=== PATIENT | female | born 1955 | race Caucasian/White ===

== ENCOUNTER 2016-10-12 09:34 | Emergency (ER) | payer MEDICAID ==
[2016-10-12 10:10] VITALS: BP 113/75
--- NOTE | 2016-10-12 10:54 | EDM.PDOC ---
ED HISTORY OF PRESENT ILLNESS - General Chief Complaint: Respiratory Problem Stated Complaint: COUGH Time Seen by Provider: 10/12/16 10:09 Source of Information: Reports: Patient, RN, RN notes reviewed History Limitations: Reports: No limitations - History of Present Illness INITIAL COMMENTS - FREE TEXT/NARRATIVE: Patient presents to the ED at [facility] with a one week history of a cough , bodyaches, headaches, and chills. Patient was seen at the [facility] on for her symptoms. She was diagnosed with Influenza A. Patient was not discharged on any medications. She was treated conservatively at that time. Patient states her cough has progressively gotten worse. Her symptoms have not gotten any better. Symptom Onset Date: 10/03/16 - Related Data Allergies/ADRs: Allergies Allergy/AdvReac Type Severity Reaction Status Date / Time No Known Allergies Allergy Verified 10/12/16 10:06 Home Meds: Home Meds Omeprazole 40 mg PO DAILY #10 cap.sr 08/26/14 [Rx] Simethicone [Gas-X] 125 mg PO Q6H PRN #30 capsule 08/26/14 [Rx] Albuterol/Ipratropium [DuoNeb 3.0-0.5 MG/3 ML] 3 ml NEB QID PRN 09/15/14 [ History] Bisacodyl 10 mg RECTAL DAILY PRN 09/15/14 [History] Docusate Sodium/Sennosides [Senokot-S] 8.6 - 50 each PO BID 09/15/14 [History] FLUoxetine [PROzac] 80 mg PO DAILY 09/15/14 [History] Fluticasone/Salmeterol [Advair 100-50] 1 puff INH BID 09/15/14 [History] LORazepam 0.5 mg PO Q8HR PRN 09/15/14 [History] Polyethylene Glycol 3350 [MiraLAX] 17 gm PO DAILY PRN 09/15/14 [History] QUEtiapine Fumarate [Seroquel] 75 mg PO BEDTIME 09/15/14 [History] QUEtiapine [SEROquel] 25 mg PO TID 09/15/14 [History] Sodium Chloride,Bacteriostatic [Sodium Chloride 0.9%] 10 ml IV BID 09/15/14 [ History] Tiotropium [Spiriva Handihaler] 18 mcg INH DAILY 09/15/14 [History] oxyCODONE 5 mg PO Q4HR PRN 09/15/14 [History] tiZANidine [Zanaflex] 4 mg PO Q8H 09/15/14 [History] traZODone 150 mg PO BEDTIME 09/15/14 [History] ClonazePAM [KlonoPIN] 0.5 mg PO BID #1 tablet 10/23/14 [Rx] oxyCODONE 5 mg PO Q4HR PRN #16 tablet 10/23/14 [Rx] oxyCODONE 10 mg PO Q4HR PRN #0 10/23/14 [Rx] predniSONE [Deltasone] 20 mg PO BID #8 tablet 10/12/16 [Rx] Past Medical History Respiratory History: Reports: Other (see below) Other Respiratory History: influenza Social & Family History - Tobacco Use Smoking Status *Q: Current Every Day Smoker Years of Tobacco use: 10 Packs/Tins Daily: 1 Used Tobacco, but Quit: Yes Month Tobacco Last Used: unknown Second Hand Smoke Exposure: Yes - Caffeine Use Caffeine Use: Reports: None - Alcohol Use Days Per Week of Alcohol Use: 0 - Recreational Drug Use Recreational Drug Use: No Drug Use in Last 12 Months: No ED ROS GENERAL - Review of Systems Review Of Systems: See Below Constitutional: Reports: fever, chills, decreased appetite. Denies: weakness HEENT: Reports: Throat pain. Denies: Ear pain, Eye pain, Rhinitis, Sinus problem, Throat swelling Respiratory: Reports: wheezing, cough. Denies: shortness of breath, sputum Cardiovascular: Denies: Chest pain, Palpitations GI/Abdominal: Reports: Nausea. Denies: Diarrhea, Vomiting Musculoskeletal: Reports: muscle pain, muscle stiffness Skin: Reports: no symptoms Neurological: Reports: no symptoms. Denies: dizziness, headache ED EXAM, GENERAL - Physical Exam Exam: See Below Exam Limited By: No limitations General Appearance: alert, anxious Eye Exam: bilateral eye: EOMI, normal inspection, PERRL Ears: normal external exam, normal canal, hearing grossly normal, normal TMs Ear Exam: bilateral ear: TM normal Nose: clear rhinorrhea Throat/Mouth: Normal inspection, Normal oropharynx, No airway compromise Neck: supple Respiratory/Chest: no respiratory distress, rhonchi, wheezing Cardiovascular: regular rate, rhythm GI/Abdominal: normal bowel sounds, soft, non tender, no distention Neurological: alert, oriented Psychiatric: anxious Skin Exam: Warm, Dry, Intact, Normal color, No rash Course - Vital Signs Last Recorded V/S: Last Vital Signs Temp 36.0 C 10/12/16 10:00 Pulse 94 10/12/16 10:00 Resp 20 10/12/16 10:00 BP 113/75 10/12/16 10:00 Pulse Ox - Orders/Labs/Meds Orders: Active Orders 24 hr Category Date Time Status RT Aerosol Therapy [RC] ASDIRECTED Care 10/12/16 10:30 Active Chest 2V [CR] Stat Exams 10/12/16 10:12 Taken Sodium Chloride 0.9% [Normal Saline] 1,000 ml Med 10/12/16 10:45 Active IV ASDIRECTED Sodium Chloride 0.9% [Saline Flush] Med 10/12/16 10:37 Active 10 ml FLUSH ASDIRECTED PRN predniSONE [Take Home: predniSONE 20 MG, 2 Tab Pack] Med 10/12/16 11:18 Once 1 packet PO ONETIME ONE Peripheral IV Insertion Adult [OM.PC] Routine Oth 10/12/16 10:37 Ordered Medication Orders Sodium Chloride (Normal Saline) 1,000 mls @ 999 mls/hr IV ASDIRECTED NORIS Last Admin: 10/12/16 11:13 Dose: 999 mls/hr Sodium Chloride (Saline Flush) 10 ml FLUSH ASDIRECTED PRN PRN Reason: Keep Vein Open Last Admin: 10/12/16 11:09 Dose: 10 ml Labs: Laboratory Tests 10/12/16 10/12/16 Range/Units 10:40 10:40 WBC 6.7 (4.0-10.0) x10^3/uL RBC 4.43 (4.00-5.50) x10^6/uL Hgb 13.8 (12.0-16.0) g/dL Hct 41.6 (33.0-47.0) % MCV 93.9 H (78.0-93.0) fL MCH 31.2 (26.0-32.0) pg MCHC 33.2 (32.0-36.0) g/dL RDW Coeff of Gordon 13.0 (10.0-15.0) % Plt Count 201 (130-400) x10^3/uL Neut % (Auto) 69.1 (50.0-80.0) % Lymph % (Auto) 24.4 L (25.0-50.0) % Sioux % (Auto) 5.7 (2.0-11.0) % Eos % (Auto) 0.7 (0.0-4.0) % Baso % (Auto) 0.1 L (0.2-1.2) % Sodium 141 (136-145) mmol/L Potassium 4.3 (3.5-5.1) mmol/L Chloride 105 (98-107) mmol/L Carbon Dioxide 27 (21-32) mmol/L BUN 27 H (7-18) mg/dL Creatinine 1.3 H (0.55-1.02) mg/dL Est Cr Clr Drug Dosing 41.41 mL/min Estimated GFR (MDRD) 42 Glucose 90 (74-106) mg/dL Calcium 8.9 (8.5-10.1) mg/dL Meds: Medications Generic Name Dose Route Start Last Admin Trade Name Freq PRN Reason Stop Dose Admin Sodium Chloride 1,000 mls @ 999 mls/hr 10/12/16 10:45 10/12/16 11:13 Normal Saline IV 999 mls/hr ASDIRECTED NORIS Administration Sodium Chloride 10 ml 10/12/16 10:37 10/12/16 11:09 Saline Flush FLUSH 10 ml ASDIRECTED PRN Administration Keep Vein Open Discontinued Medications Generic Name Dose Route Start Last Admin Trade Name Freq PRN Reason Stop Dose Admin Albuterol/Ipratropium 3 ml 10/12/16 10:30 10/12/16 11:05 Duoneb 3.0-0.5 Mg/3 Ml NEB 10/12/16 10:31 3 ml ONETIME ONE Administration Ketorolac Tromethamine 30 mg 10/12/16 10:38 10/12/16 11:05 Toradol IVPUSH 10/12/16 10:39 30 mg ONETIME ONE Administration Methylprednisolone Sodium Succinate 125 mg 10/12/16 10:38 10/12/16 11:05 Solu-Medrol IVPUSH 10/12/16 10:39 125 mg ONETIME ONE Administration Departure - Departure Time of Disposition: 11:16 Disposition: Home, Self-Care 01 Condition: good Clinical Impression: Acute bronchitis Qualifiers: Bronchitis organism: unspecified organism Qualified Code(s): J20.9 - Acute bronchitis, unspecified Prescriptions: predniSONE [Deltasone] 20 mg PO BID #8 tablet Instructions: Acute Bronchitis Referrals: Abdoulaye Chakraborty MD [Primary Care Provider] - Forms: ED Department Discharge Additional Instructions: 1. Stay well hydrated and rest 2. Start your antibiotics as prescribed by your provider 3. Cover your cough 4. Blood tests and Influenza test were normal 5. Chest xray was normal 6. Take Prednisone twice a day for the next 5 days until gone - Problem List Review Problem List Initiated/Reviewed/Updated: Yes - My Orders Last 24 Hours: My Active Orders 10/12/16 10:12 Chest 2V [CR] Stat 10/12/16 10:30 RT Aerosol Therapy [RC] ASDIRECTED 10/12/16 10:37 Sodium Chloride 0.9% [Saline Flush] 10 ml FLUSH ASDIRECTED PRN Peripheral IV Insertion Adult [OM.PC] Routine 10/12/16 10:45 Sodium Chloride 0.9% [Normal Saline] 1,000 ml IV ASDIRECTED 10/12/16 11:18 predniSONE [Take Home: predniSONE 20 MG, 2 Tab Pack] 1 packet PO ONETIME ONE - Assessment/Plan Last 24 Hours: My Active Orders 10/12/16 10:12 Chest 2V [CR] Stat 10/12/16 10:30 RT Aerosol Therapy [RC] ASDIRECTED 10/12/16 10:37 Sodium Chloride 0.9% [Saline Flush] 10 ml FLUSH ASDIRECTED PRN Peripheral IV Insertion Adult [OM.PC] Routine 10/12/16 10:45 Sodium Chloride 0.9% [Normal Saline] 1,000 ml IV ASDIRECTED 10/12/16 11:18 predniSONE [Take Home: predniSONE 20 MG, 2 Tab Pack] 1 packet PO ONETIME ONE
[2016-10-12] MEDS: Albuterol/Ipratropium 3.0-0.5 MG/3 ML Neb Soln NEB ONE (11:05)
[2016-10-12] MEDS: Ketorolac 30 MG/ML SDV IVPUSH ONE (11:05)
[2016-10-12] MEDS: methylPREDNISolone Sodium Succinate 125 MG/2 ML SDV IVPUSH ONE (11:05)
[2016-10-12] MEDS: Sodium Chloride 0.9% 10 ML Syringe FLUSH PRN (11:09)
[2016-10-12] MEDS: Sodium Chloride 0.9% 1,000 ML IV SCH (11:13)
[2016-10-12] MEDS ORDERED: Take Home: predniSONE 20 MG, 2 Tab Pack PO ONE (11:18)
== END 2016-10-12 12:10 | disposition home or self-care (01) ==
LOC: VM.ED 09:34
DX: J20.9 Acute bronchitis, unspecified (principal); Z79.899 Other long term (current) drug therapy; F17.210 Nicotine dependence, cigarettes, uncomplicated
CPT/HCPCS: 36415; 71020; 80048; 85025; 87804; 94640; 96361; 96374; 96375; 99285; A9270-GY; J1885; J2930; J7030; J7050

== ENCOUNTER 2016-11-18 16:42 | Emergency (ER) | payer MEDICAID ==
[2016-11-18] MEDS ORDERED: Ketorolac 60 MG/2 ML SDV IM ONE (17:08)
[2016-11-18 17:20] VITALS: BP 127/70
[2016-11-18] MEDS ORDERED: Sodium Phosphate,Monobasic/Sodium Phosphate,Dibasic Enema 133 ML Bottle RECTAL ONE (17:58)
--- NOTE | 2016-11-18 22:32 | ER ---
Date of Service: 11/18/2016 REASON FOR VISIT: 1. Abdominal pain. 2. Fall. HISTORY: A 61-year-old white female who sustained fall about 4 days ago. She was doing some type of exercise at home when she lost her balance and landed on her buttocks sustaining a large bruise to the left buttock. Also some bruising to the right knee. Today, she started having some right-sided abdominal pain. It is sharp in character. It is a constant pain, taking a deep breath makes it worse. There is some nausea, but no emesis. She states her bowels were occasional. Did not have any diarrhea or blood in the stools. No urinary symptoms. Some chills. No numbness or tingling into her legs. No pain into the legs. MEDICATIONS: Reviewed and updated in electronic health record. She tells me she is no longer taking her oxycodone. ALLERGIES: None known. OBJECTIVE: General: She is alert. She is afebrile. Vital Signs: Pulse of 100, blood pressure is 127/70, respirations are 20. HEENT: TMs negative. Throat clear. Neck: No adenopathy. Heart: Regular rate and rhythm. No murmur. Lungs: Clear to auscultation. Abdomen: Soft. There is some right-sided mid abdominal tenderness. No rebound noted. There is some mild right CVA tenderness. Pelvis is nontender to palpation. Skin: Her buttock, there is a large bruise on the left ischium area. Rectal: Digital rectal exam is unremarkable, has showed minimal stool, the vault was nontender, no masses were palpable. LABORATORY DATA: White count 8.7, hemoglobin 13.5, platelets were normal. Creatinine is 1.3. LFT's are unremarkable. CRP was 3.9. Urinalysis showed 5- 10 wbc's with rare bacteria. Abdominal films were obtained. These were consistent with moderate colonic fecal retention. AP pelvis showed no acute findings. Management in emergency room, she was given Toradol 60 mg IM for pain and a Fleet's Enema for her colonic retention. ASSESSMENT: 1. Abdominal pain felt secondary to colonic retention. 2. Fall with a bruise on her left ischium. PLAN: Patient is reassured to take her MiraLAX 17 g daily. Take a stool softener, her Senokot-S b.i.d. on a regular basis. She has not eaten 1 of those at this time. May use Tylenol for pain. Follow up with her primary provider if not improving. Call or return if any problems or concerns. FM: 11/18/2016 18:30:23 MODL: 11/18/2016 22:21:43 /[id number]
== END 2016-11-18 18:30 | disposition critical access hospital (66) ==
LOC: VM.ED 16:42
DX: S30.0XXA Contusion of lower back and pelvis, initial encounter (principal); R10.819 Abdominal tenderness, unspecified site; W19.XXXA Unspecified fall, initial encounter
CPT/HCPCS: 36415; 72170; 74020; 80053; 81001; 82150; 83690; 83735; 85025; 86140; 87086; 96372; 99284; A9270; J1885; 87088; 87186

== ENCOUNTER 2017-01-05 16:13 | Emergency (ER) | payer MEDICAID ==
[2017-01-05] MEDS ORDERED: LORazepam 2 MG/ML MDV IM ONE (16:39)
--- NOTE | 2017-01-05 16:44 | EDM.PDOC ---
ED HPI GENERAL MEDICAL PROBLEM - General Chief Complaint: General Stated Complaint: anxiety Time Seen by Provider: 01/05/17 16:39 Source of Information: Reports: Patient History Limitations: Reports: No Limitations - History of Present Illness INITIAL COMMENTS - FREE TEXT/NARRATIVE: Patient here with reports of anxiety. She states she had some breathing difficulty earlier today and reports a history of COPD and recent influenza A. She did take an albuterol inhaler that was not helpful. She states she has a anxiety attack every 3-4 months and this does feel similar to what she is having today. She does states some shortness of breath that has become better. She was sent over here from the clinic. No nausea, vomiting, headache, change in LOC, no other complaints. She is requesting a ativan injection. Onset: Today, Sudden Onset Date: 01/05/17 Duration: Improving Location: Reports: Chest Severity: Moderate Improves with: Reports: None Worsens with: Reports: None Associated Symptoms: Reports: No Other Symptoms - Related Data Allergies Allergy/AdvReac Type Severity Reaction Status Date / Time No Known Allergies Allergy Verified 10/12/16 10:06 Home Meds: Home Meds Simethicone [Gas-X] 125 mg PO Q6H PRN #30 capsule 08/26/14 [Rx] Albuterol/Ipratropium [DuoNeb 3.0-0.5 MG/3 ML] 3 ml NEB QID PRN 09/15/14 [ History] Bisacodyl 10 mg RECTAL DAILY PRN 09/15/14 [History] Docusate Sodium/Sennosides [Senokot-S] 8.6 - 50 each PO BID 09/15/14 [History] FLUoxetine [PROzac] 80 mg PO DAILY 09/15/14 [History] Fluticasone/Salmeterol [Advair 100-50] 1 puff INH BID 09/15/14 [History] LORazepam 0.5 mg PO Q8HR PRN 09/15/14 [History] Polyethylene Glycol 3350 [MiraLAX] 17 gm PO DAILY PRN 09/15/14 [History] QUEtiapine Fumarate [Seroquel] 75 mg PO BEDTIME 09/15/14 [History] QUEtiapine [SEROquel] 25 mg PO TID 09/15/14 [History] Sodium Chloride,Bacteriostatic [Sodium Chloride 0.9%] 10 ml IV BID 09/15/14 [ History] Tiotropium [Spiriva Handihaler] 18 mcg INH DAILY 09/15/14 [History] oxyCODONE 5 mg PO Q4HR PRN 09/15/14 [History] tiZANidine [Zanaflex] 4 mg PO Q8H 09/15/14 [History] traZODone 150 mg PO BEDTIME 09/15/14 [History] oxyCODONE 5 mg PO Q4HR PRN #16 tablet 10/23/14 [Rx] oxyCODONE 10 mg PO Q4HR PRN #0 10/23/14 [Rx] ClonazePAM [KlonoPIN] 0.5 mg PO TID 10/12/16 [History] Omeprazole 20 mg PO DAILY 10/12/16 [History] predniSONE [Deltasone] 20 mg PO BID #8 tablet 10/12/16 [Rx] Past Medical History Respiratory History: Reports: Other (See Below) Other Respiratory History: influenza Social & Family History - Tobacco Use Smoking Status *Q: Former Smoker Years of Tobacco use: 25 Packs/Tins Daily: 1 Used Tobacco, but Quit: No Month Tobacco Last Used: unknown Second Hand Smoke Exposure: Yes - Caffeine Use Caffeine Use: Reports: Coffee - Alcohol Use Days Per Week of Alcohol Use: 0 - Recreational Drug Use Recreational Drug Use: No Drug Use in Last 12 Months: No ED ROS GENERAL - Review of Systems Review Of Systems: ROS reveals no pertinent complaints other than HPI. ED EXAM, GENERAL - Physical Exam Exam: See Below Exam Limited By: No Limitations General Appearance: Alert, WD/WN, Mild Distress Eye Exam: Bilateral Eye: EOMI, PERRL Head: Atraumatic, Normocephalic Neck: Normal Inspection, Supple Respiratory/Chest: No Respiratory Distress, Lungs Clear, Normal Breath Sounds, No Accessory Muscle Use, Chest Non-Tender Cardiovascular: Normal Peripheral Pulses, Regular Rate, Rhythm, No Edema GI/Abdominal: Normal Bowel Sounds, Soft, Non-Tender Neurological: Alert, Oriented, CN II-XII Intact, Normal Cognition, Normal Gait, Normal Reflexes, No Motor/Sensory Deficits Psychiatric: Anxious Skin Exam: Warm, Dry, Intact Lymphatic: No Adenopathy Course - Vital Signs Last Recorded V/S: Last Vital Signs Temp 35.2 C L 01/05/17 16:31 Pulse 71 01/05/17 16:31 Resp 26 H 01/05/17 16:31 BP 108/66 01/05/17 16:31 Pulse Ox 97 01/05/17 16:31 Departure - Departure Time of Disposition: 18:09 Disposition: Home, Self-Care 01 Condition: good Clinical Impression: Anxiety - Discharge Information Instructions: Panic Attacks, [id number] Forms: ED Department Discharge Additional Instructions: Please follow up with your anxiety related needs with your primary provider as needed. I did include some information for you to look through related to anxiety. Do not hesitate to call with any questions or concerns. - Problem List & Annotations (1) Anxiety SNOMED Code(s): 26923893 Code(s): F41.9 - ANXIETY DISORDER, UNSPECIFIED Status: Acute Priority: Medium Current Visit: Yes - Problem List Review Problem List Initiated/Reviewed/Updated: Yes - Assessment/Plan Assessment:: Anxiety/panic attack Plan: Please follow up with your anxiety related needs with your primary provider as needed. I did include some information for you to look through related to anxiety. Do not hesitate to call with any questions or concerns.
[2017-01-05 16:45] VITALS: BP 108/66
== END 2017-01-05 18:23 | disposition home or self-care (01) ==
LOC: VM.ED 16:13
DX: F41.9 Anxiety disorder, unspecified (principal); Z79.899 Other long term (current) drug therapy; Z87.891 Personal history of nicotine dependence
CPT/HCPCS: 96372; 99283; J2060

== ENCOUNTER 2017-03-25 14:47 | Emergency (ER) | payer MEDICAID ==
[2017-03-25 14:56] VITALS: BP 109/72
[2017-03-25] MEDS ORDERED: LORazepam 2 MG/ML SDV IM ONE (14:57)
--- NOTE | 2017-03-25 15:03 | EDM.PDOCBH ---
ED HPI GENERAL MEDICAL PROBLEM - General Chief Complaint: Behavioral/Psych Stated Complaint: PANIC ATTACK Time Seen by Provider: 03/25/17 14:52 Source of Information: Reports: Patient History Limitations: Reports: No Limitations - History of Present Illness INITIAL COMMENTS - FREE TEXT/NARRATIVE: Patient breathing quickly, is crying, was at the clinic and brought here without any interventions tried. She comes in routinely with complaints of panic attacks and stated that she forgot to take her 1st dose of ativan today. She is scheduled for 3 times daily. I last saw her in December and did request she follow with her primary to address possibly increasing her medications. She has some dizziness and nausea accompanying this as well. Onset: Today, Sudden Duration: Chronic Location: Reports: Other (anxiety) Severity: Moderate - Related Data Allergies Allergy/AdvReac Type Severity Reaction Status Date / Time No Known Allergies Allergy Verified 10/12/16 10:06 Home Meds: Home Meds Simethicone [Gas-X] 125 mg PO Q6H PRN #30 capsule 08/26/14 [Rx] Albuterol/Ipratropium [DuoNeb 3.0-0.5 MG/3 ML] 3 ml NEB QID PRN 09/15/14 [ History] Bisacodyl 10 mg RECTAL DAILY PRN 09/15/14 [History] Docusate Sodium/Sennosides [Senokot-S] 8.6 - 50 each PO BID 09/15/14 [History] FLUoxetine [PROzac] 80 mg PO DAILY 09/15/14 [History] Fluticasone/Salmeterol [Advair 100-50] 1 puff INH BID 09/15/14 [History] LORazepam 0.5 mg PO Q8HR PRN 09/15/14 [History] Polyethylene Glycol 3350 [MiraLAX] 17 gm PO DAILY PRN 09/15/14 [History] QUEtiapine Fumarate [Seroquel] 75 mg PO BEDTIME 09/15/14 [History] QUEtiapine [SEROquel] 25 mg PO TID 09/15/14 [History] Sodium Chloride,Bacteriostatic [Sodium Chloride 0.9%] 10 ml IV BID 09/15/14 [ History] Tiotropium [Spiriva Handihaler] 18 mcg INH DAILY 09/15/14 [History] oxyCODONE 5 mg PO Q4HR PRN 09/15/14 [History] tiZANidine [Zanaflex] 4 mg PO Q8H 09/15/14 [History] traZODone 150 mg PO BEDTIME 09/15/14 [History] oxyCODONE 5 mg PO Q4HR PRN #16 tablet 10/23/14 [Rx] oxyCODONE 10 mg PO Q4HR PRN #0 10/23/14 [Rx] ClonazePAM [KlonoPIN] 0.5 mg PO TID 10/12/16 [History] Omeprazole 20 mg PO DAILY 10/12/16 [History] predniSONE [Deltasone] 20 mg PO BID #8 tablet 10/12/16 [Rx] Past Medical History Other HEENT History: deaf partly; and arthritis; nasal decongestion Respiratory History: Reports: Other (See Below) Other Respiratory History: influenza Gastrointestinal History: Reports: GERD Other Genitourinary History: stress incont Psychiatric History: Reports: ADHD, Anxiety, Panic Attack Social & Family History - Family History Family Medical History: Noncontributory - Tobacco Use Smoking Status *Q: Former Smoker Years of Tobacco use: 25 Packs/Tins Daily: 1 Used Tobacco, but Quit: No Month Tobacco Last Used: unknown Second Hand Smoke Exposure: Yes - Caffeine Use Caffeine Use: Reports: Coffee - Alcohol Use Days Per Week of Alcohol Use: 0 - Recreational Drug Use Recreational Drug Use: No Drug Use in Last 12 Months: No ED ROS GENERAL - Review of Systems Review Of Systems: See Below Constitutional: Reports: No Symptoms HEENT: Reports: No Symptoms Respiratory: Reports: Shortness of Breath Cardiovascular: Reports: No Symptoms Endocrine: Reports: No Symptoms GI/Abdominal: Reports: No Symptoms : Reports: No Symptoms Musculoskeletal: Reports: No Symptoms Skin: Reports: No Symptoms Neurological: Reports: Dizziness (likely due to anxiety is her statement) Psychiatric: Reports: Anxiety Hematologic/Lymphatic: Reports: No Symptoms Immunologic: Reports: No Symptoms ED EXAM, BEHAVIORAL HEALTH - Physical Exam Exam: See Below Exam Limited By: No Limitations General Appearance: Alert, WD/WN, Anxious, Moderate Distress Eye Exam: Bilateral Eye: EOMI, PERRL Head: Atraumatic, Normocephalic Neck: Normal Inspection, Supple, Non-Tender Respiratory/Chest: No Respiratory Distress, Lungs Clear, Normal Breath Sounds, No Accessory Muscle Use, Chest Non-Tender Cardiovascular: Normal Peripheral Pulses, Regular Rate, Rhythm, No Edema, No Murmur GI/Abdominal: Normal Bowel Sounds, Soft, Non-Tender Extremities: Normal Inspection, Normal Range of Motion, Non-Tender, No Pedal Edema, Normal Capillary Refill Neurological: Alert, Normal Mood/Affect, CN II-XII Intact, Normal Cognition, Normal Gait, Normal Reflexes, No Motor/Sensory Deficits, Oriented x 3 Psychiatric: Restless, Agitated Skin Exam: Warm, Dry, Intact COURSE, BEHAVIORAL HEALTH COMP - Course Vital Signs: Last Vital Signs Temp 36.1 C 03/25/17 14:50 Pulse 84 03/25/17 14:50 Resp 32 H 03/25/17 14:50 BP 109/72 03/25/17 14:50 Pulse Ox 99 03/25/17 14:50 Orders, Labs, Meds: Active Orders 24 hr Category Date Time Status LORazepam [Ativan] Med 03/25/17 14:57 Once 2 mg IM ONETIME ONE Medication Orders Lorazepam (Ativan) 2 mg IM ONETIME ONE Stop: 03/25/17 14:58 Medications Generic Name Dose Route Start Last Admin Trade Name Neris PRN Reason Stop Dose Admin Lorazepam 2 mg 03/25/17 14:57 Ativan IM 03/25/17 14:58 ONETIME ONE Re-Assessment/Re-Exam: 2 mg IM lorazepam given Departure - Departure Time of Disposition: 15:30 Disposition: Home, Self-Care 01 Condition: Good Clinical Impression: Anxiety, Anxiety - Discharge Information Forms: ED Department Discharge Additional Instructions: As instructed before when I saw you in December, make sure your primary doctor and yourself work out a more effective management strategy for your anxiety. Drink plenty of water Return if you experience additional anxiety Call with any questions or concerns. - Problem List & Annotations (1) Anxiety SNOMED Code(s): 83052967 Code(s): F41.9 - ANXIETY DISORDER, UNSPECIFIED Status: Acute Priority: Low Current Visit: Yes - Problem List Review Problem List Initiated/Reviewed/Updated: Yes - My Orders Last 24 Hours: My Active Orders 03/25/17 14:57 LORazepam [Ativan] 2 mg IM ONETIME ONE - Assessment/Plan Last 24 Hours: My Active Orders 03/25/17 14:57 LORazepam [Ativan] 2 mg IM ONETIME ONE Assessment:: Acute anxiety attack Plan: As instructed before when I saw you in December, make sure your primary doctor and yourself work out a more effective management strategy for your anxiety. Drink plenty of water Return if you experience additional anxiety Call with any questions or concerns.
== END 2017-03-25 15:34 | disposition home or self-care (01) ==
LOC: VM.ED 14:47
DX: F41.9 Anxiety disorder, unspecified (principal); K21.9 Gastro-esophageal reflux disease without esophagitis; Z87.891 Personal history of nicotine dependence; Z79.899 Other long term (current) drug therapy
CPT/HCPCS: 96372; 99283; J2060

== ENCOUNTER 2018-11-02 10:17 | Emergency (ER) | payer MEDICAID ==
--- NOTE | 2018-11-02 11:10 | EDM.PDOC ---
ED HPI GENERAL MEDICAL PROBLEM - General Chief Complaint: Gastrointestinal Problem Stated Complaint: abdominal pain, constipation Time Seen by Provider: 11/02/18 11:00 Source of Information: Reports: Patient History Limitations: Reports: No Limitations - History of Present Illness INITIAL COMMENTS - FREE TEXT/NARRATIVE: Patient sent over from the clinic with complaints of constipation and abdominal pain. Also reported to be manic with her reporting she has been eating dirt. She states that she last had a BM 4 days ago. Lower right sided abdominal pain , pain worse when walking. She also reports fever at home of 99-100F. Afebrile here with normal temperature of 98.6F. No reports of any antipyretics. Does report some nausea/vomiting that she states was "dirt". Denies blood in urine or stool. Denies headache, change in LOC, denies chest pain, SOB. She denies any suicidality or homicidality. Denies recent drug use. Onset: Gradual Duration: Intermittent Location: Reports: Abdomen Quality: Reports: Pressure, Sharp, Stabbing Severity: Moderate Worsens with: Reports: Movement Associated Symptoms: Reports: Nausea/Vomiting Middle Abdomen Pain Score (Numeric/FACES): 8 - Related Data Allergies Allergy/AdvReac Type Severity Reaction Status Date / Time No Known Allergies Allergy Verified 05/28/17 17:14 Home Meds: Home Meds Docusate Sodium/Sennosides [Senokot-S] 8.6 - 50 each PO BID 09/15/14 [History] Fluticasone/Salmeterol [Advair 100-50] 1 puff INH BID 09/15/14 [History] Tiotropium [Spiriva Handihaler] 18 mcg INH DAILY 09/15/14 [History] tiZANidine [Zanaflex] 4 mg PO BID 09/15/14 [History] traZODone 300 mg PO BEDTIME 09/15/14 [History] ClonazePAM [KlonoPIN] 1 mg PO TID 10/12/16 [History] Omeprazole 20 mg PO BID 10/12/16 [History] Albuterol [Ventolin HFA] 8 gm INH Q4H PRN 03/25/17 [History] Cholecalciferol (Vitamin D3) [Vitamin D] 50,000 unit PO Q7D 03/25/17 [History] Fluticasone Propionate [Flonase] 1 spray NASBOTH BID 03/25/17 [History] Mupirocin Oint [Bactroban Oint] 22 gm TOP BID 03/25/17 [History] Pramipexole Di-HCl [Mirapex] 0.125 mg PO BEDTIME 03/25/17 [History] Pramipexole Di-HCl [Mirapex] 2 tab PO DAILY 03/25/17 [History] Pregabalin [Lyrica] 25 mg PO BEDTIME 03/25/17 [History] busPIRone [Buspar] 15 mg PO TID 03/25/17 [History] oxyCODONE 5 - 10 mg PO DAILY PRN 03/25/17 [History] DULoxetine [Cymbalta] 120 mg PO DAILY 11/02/18 [History] Fluticasone/Vilanterol [Breo Ellipta 100-25 MCG Inhalation Kit] 1 each IH DAILY 11/02/18 [History] Linaclotide [Linzess] 290 mcg PO DAILY 11/02/18 [History] Vitamin B Complex 1 each PO DAILY 11/02/18 [History] atoMOXetine HCl [Strattera] 100 mg PO DAILY 11/02/18 [History] Past Medical History Other HEENT History: deaf partly; and arthritis; nasal decongestion Respiratory History: Reports: Other (See Below) Other Respiratory History: influenza Gastrointestinal History: Reports: GERD Other Genitourinary History: stress incont Psychiatric History: Reports: ADHD, Anxiety, Panic Attack Social & Family History - Family History Family Medical History: Noncontributory - Caffeine Use Caffeine Use: Reports: Coffee ED ROS GENERAL - Review of Systems Review Of Systems: See Below Constitutional: Reports: Fever HEENT: Reports: No Symptoms Respiratory: Reports: No Symptoms Cardiovascular: Reports: No Symptoms Endocrine: Reports: No Symptoms GI/Abdominal: Reports: Abdominal Pain, Constipation, Nausea, Vomiting. Denies: Black Stool, Bloody Stool : Reports: No Symptoms Musculoskeletal: Reports: No Symptoms Skin: Reports: No Symptoms Neurological: Reports: No Symptoms Psychiatric: Reports: Agitation, Anxiety Hematologic/Lymphatic: Reports: No Symptoms Immunologic: Reports: No Symptoms ED EXAM, GENERAL - Physical Exam Exam: See Below Exam Limited By: No Limitations General Appearance: Alert, WD/WN, Anxious Eye Exam: Bilateral Eye: EOMI, Normal Inspection, PERRL Ears: Normal External Exam, Normal Canal, Hearing Grossly Normal, Normal TMs Nose: Normal Inspection, Normal Mucosa, No Blood Throat/Mouth: Normal Inspection, Normal Lips, Normal Teeth, Normal Gums, Normal Oropharynx, Normal Voice, No Airway Compromise Head: Atraumatic, Normocephalic Neck: Normal Inspection, Supple, Non-Tender, Full Range of Motion Respiratory/Chest: No Respiratory Distress, Lungs Clear, Normal Breath Sounds, No Accessory Muscle Use, Chest Non-Tender Cardiovascular: Normal Peripheral Pulses, Regular Rate, Rhythm, No Edema, No Gallop, No JVD, No Murmur, No Rub Peripheral Pulses: 2+: Posterior Tibial (L), Posterior Tibial (R), Dorsalis Pedis (L), Dorsalis Pedis (R) GI/Abdominal: No Distention, No Abnormal Bruit, Guarding, Rebound, Tender Back Exam: Normal Inspection, Full Range of Motion, NT Extremities: Normal Inspection, Normal Range of Motion, Non-Tender, Normal Capillary Refill, No Pedal Edema Neurological: Alert, Oriented, CN II-XII Intact, Normal Cognition, Normal Gait, Normal Reflexes, No Motor/Sensory Deficits Psychiatric: Anxious Skin Exam: Warm, Dry, Intact, Normal Color, No Rash Lymphatic: No Adenopathy Course - Vital Signs Last Recorded V/S: Last Vital Signs Temp 37.3 C 11/02/18 13:01 Pulse 96 11/02/18 14:05 Resp 14 11/02/18 14:05 BP 98/49 L 11/02/18 14:05 Pulse Ox 96 11/02/18 14:05 - Orders/Labs/Meds Orders: Active Orders 24 hr Category Date Time Status D5 1/2 NS w/ 40 mEq/L KCl 1,000 ml Med 11/02/18 14:30 Ordered IV ASDIRECTED Sodium Chloride 0.9% [Normal Saline] 1,000 ml Med 11/02/18 11:15 Active IV ASDIRECTED Sodium Chloride 0.9% [Saline Flush] Med 11/02/18 11:11 Active 10 ml FLUSH ASDIRECTED PRN Saline Lock Insert [OM.PC] Routine Oth 11/02/18 11:11 Ordered Medication Orders Sodium Chloride (Normal Saline) 1,000 mls @ 999 mls/hr IV ASDIRECTED NORIS Last Admin: 11/02/18 11:26 Dose: 999 mls/hr Potassium Chloride/Dextrose/Sod Cl (D5 1/2 Ns W/ 40 Meq/L Kcl) 1,000 mls @ 250 mls/hr IV ASDIRECTED NORIS Last Admin: 11/02/18 14:34 Dose: 250 mls/hr Sodium Chloride (Saline Flush) 10 ml FLUSH ASDIRECTED PRN PRN Reason: Keep Vein Open Last Admin: 11/02/18 11:26 Dose: 10 ml Labs: Laboratory Tests 11/02/18 11/02/18 11/02/18 Range/Units 11:23 11:23 12:35 WBC 14.2 H (4.0-10.0) x10^3/uL RBC 4.47 (4.00-5.50) x10^6/uL Hgb 14.0 (12.0-16.0) g/dL Hct 40.3 (33.0-47.0) % MCV 90.2 D (78.0-93.0) fL MCH 31.3 (26.0-32.0) pg MCHC 34.7 (32.0-36.0) g/dL RDW Coeff of Gordon 13.5 (10.0-15.0) % Plt Count 172 (130-400) x10^3/uL Neut % (Auto) 88.3 H (50.0-80.0) % Lymph % (Auto) 6.1 L (25.0-50.0) % [place] % (Auto) 5.4 (2.0-11.0) % Eos % (Auto) 0.1 (0.0-4.0) % Baso % (Auto) 0.1 L (0.2-1.2) % Sodium 140 (136-145) mmol/L Potassium 2.2 L* D (3.5-5.1) mmol/L Chloride 103 (98-107) mmol/L Carbon Dioxide 24 (21-32) mmol/L Anion Gap 15.2 (10-20) mmol/L BUN 22 H (7-18) mg/dL Creatinine 1.6 H (0.55-1.02) mg/dL Est Cr Clr Drug Dosing TNP Estimated GFR (MDRD) 33 Glucose 124 H (74-106) mg/dL Calcium 9.4 (8.5-10.1) mg/dL Corrected Calcium 10.20 H (8.5-10.1) mg/dL Total Bilirubin 0.7 (0.2-1.0) mg/dL AST 31 (15-37) U/L ALT 32 (14-59) U/L Alkaline Phosphatase 133 H (46-116) U/L Creatine Kinase (26-192) U/L Troponin I < 0.017 (<=0.056) ng/mL C-Reactive Protein < 0.2 (<=0.9) mg/dL NT-Pro-B Natriuret Pep 766 H (<=125) pg/mL Total Protein 6.5 (6.4-8.2) g/dL Albumin 3.0 L (3.4-5.0) g/dL Globulin 3.5 Albumin/Globulin Ratio 0.86 Amylase 7 L (25-115) U/L Lipase 38 L (73-393) U/L TSH, Ultra Sensitive 0.502 (0.358-3.74) uIU/mL Urine Color Dark yellow H (YELLOW) Urine Appearance Cloudy H (CLEAR) Urine pH 5.5 (5.0-8.0) Ur Specific [place] <=1.005 Urine Protein 100 H (NEGATIVE) mg/dL Urine Glucose (UA) Negative (NEGATIVE) mg/dL Urine Ketones Negative (NEGATIVE) mg/dL Urine Occult Blood Trace-lysed H (NEGATIVE) Urine Nitrite Negative (NEGATIVE) Urine Bilirubin Small H (NEGATIVE) Urine Urobilinogen 0.2 (0.2) EU/dL Ur Leukocyte Esterase Negative (NEGATIVE) Urine RBC 0-5 (NOT SEEN) /HPF Urine WBC 0-5 (NOT SEEN) /HPF Ur Squamous Epith Cells Rare (NEGATIVE) /HPF Amorphous Sediment Many Urine Bacteria Rare (NEGATIVE) /HPF Granular Casts Few H (NEGATIVE) /HPF Urine Mucus Rare H (NEGATIVE) /LPF Meds: Medications Generic Name Dose Route Start Last Admin Trade Name Freq PRN Reason Stop Dose Admin Sodium Chloride 1,000 mls @ 999 mls/hr 11/02/18 11:15 11/02/18 11:26 Normal Saline IV 999 mls/hr ASDIRECTED NORIS Administration Potassium Chloride/Dextrose/Sod Cl 1,000 mls @ 250 mls/hr 11/02/18 14:30 14:34 D5 1/2 Ns W/ 40 Meq/L Kcl IV 250 mls/hr ASDIRECTED NORIS Administration Sodium Chloride 10 ml 11/02/18 11:11 11/02/18 11:26 Saline Flush FLUSH 10 ml ASDIRECTED PRN Administration Keep Vein Open Discontinued Medications Generic Name Dose Route Start Last Admin Trade Name Freq PRN Reason Stop Dose Admin Hydromorphone HCl 1 mg 11/02/18 14:23 11/02/18 14:32 Dilaudid IVPUSH 11/02/18 14:24 1 mg ONETIME ONE Administration Iopamidol 100 ml 11/02/18 11:54 11/02/18 12:53 Isovue-300 (61%) IVPUSH 11/02/18 11:55 100 ml ONETIME ONE Administration Morphine Sulfate 2 mg 11/02/18 11:11 11/02/18 11:28 Morphine IVPUSH 11/02/18 11:12 2 mg ONETIME ONE Administration Ondansetron HCl 4 mg 11/02/18 11:11 11/02/18 11:26 Zofran IVPUSH 11/02/18 11:12 4 mg ONETIME ONE Administration - Radiology Interpretation Free Text/Narrative:: CT interpretation reports pseudomembranous colitis VS toxic megacolon Departure - Departure Time of Disposition: 14:49 Disposition: DC/Tfer to [facility] 02 Condition: Fair Clinical Impression: Colitis - Discharge Information *PRESCRIPTION DRUG MONITORING PROGRAM REVIEWED*: No *COPY OF PRESCRIPTION DRUG MONITORING REPORT IN PATIENT KEARA: No Referrals: Delmy Burrell, [Primary Care Provider] - Forms: ED Department Discharge, Interfacility Transfer [facility] ED Communication - ED Communication Date/Time Date: 11/02/18 Time Called: 14:20 - Discussed Case With (1) Discussed Case With (1): Other (Case discussed with Dr. Ridley at [facility]. He requests transfer to ER for further workup) - Problem List & Annotations (1) Abdominal pain SNOMED Code(s): 11879249 Code(s): R10.9 - UNSPECIFIED ABDOMINAL PAIN Status: Acute Priority: Medium Current Visit: No (2) Colitis SNOMED Code(s): 48347299 Code(s): K52.9 - NONINFECTIVE GASTROENTERITIS AND COLITIS, UNSPECIFIED Status: Acute Priority: Medium Current Visit: Yes - Problem List Review Problem List Initiated/Reviewed/Updated: Yes - My Orders Last 24 Hours: My Active Orders 11/02/18 11:11 Sodium Chloride 0.9% [Saline Flush] 10 ml FLUSH ASDIRECTED PRN Saline Lock Insert [OM.PC] Routine 11/02/18 11:15 Sodium Chloride 0.9% [Normal Saline] 1,000 ml IV ASDIRECTED 11/02/18 14:30 D5 1/2 NS w/ 40 mEq/L KCl 1,000 ml IV ASDIRECTED - Assessment/Plan Last 24 Hours: My Active Orders 11/02/18 11:11 Sodium Chloride 0.9% [Saline Flush] 10 ml FLUSH ASDIRECTED PRN Saline Lock Insert [OM.PC] Routine 11/02/18 11:15 Sodium Chloride 0.9% [Normal Saline] 1,000 ml IV ASDIRECTED 11/02/18 14:30 D5 1/2 NS w/ 40 mEq/L KCl 1,000 ml IV ASDIRECTED Plan: Patient report given to Dr. Ridley at [facility]. Transfer for further evaluation and work up. Patient has been stable while here. Awaiting ambulance transport.
[2018-11-02] MEDS: Sodium Chloride 0.9% 10 ML Syringe FLUSH PRN (11:26)
[2018-11-02] MEDS: Ondansetron 4 MG/2 ML SDV IVPUSH ONE (11:26)
[2018-11-02] MEDS: Sodium Chloride 0.9% 1,000 ML IV SCH (11:26)
[2018-11-02] MEDS: Morphine 2 MG/ML Syringe IVPUSH ONE (11:28)
[2018-11-02 12:21] LABS: CHLORIDE,CL 103 mmol/L (98-107); SODIUM,NA 140 mmol/L (136-145)
[2018-11-02 12:32] LABS: ANION GAP 15.2 mmol/L (10-20)
[2018-11-02] MEDS: Iopamidol 612 MG/ML 100 ML Bottle IVPUSH ONE (12:53)
--- NOTE | 2018-11-02 13:35 | CT ---
[id number] CT/CT Abdomen Pelvis W IV EXAM: CT Abdomen Pelvis W IV CLINICAL DATA: ABDOMINAL PAIN COMPARISON: NO PREVIOUS SIMILAR EXAM IS AVAILABLE. FINDINGS: There is diffuse distention of the large bowel. There is thickening of the wall of the large bowel. There is free fluid in the abdomen and pelvis. There is no free air or portal venous air. There is a question of pneumatosis involving the sigmoid colon. Surgical consultation suggested. The mesenteric vessels demonstrate normal enhancement. The liver and spleen, kidneys, adrenals, aorta, and pancreas otherwise are unremarkable. The gallbladder is slightly distended. The gallbladder wall is normal. The spleen is borderline prominent. The pelvis shows no mass or adenopathy. There is no abscess. IMPRESSION: PSEUDOMEMBRANOUS COLITIS VERSUS TOXIC MEGACOLON. SURGICAL CONSULTATION SUGGESTED. REPORT CALLED AT TIME OF DICTATION. Fernando Burns MD 11/02/18 [id number] Thank you for allowing us to participate in the care of your patient.
[2018-11-02] MEDS: HYDROmorphone 1 MG/ML Syringe IVPUSH ONE (14:32)
[2018-11-02] MEDS: D5 1/2 NS w/ 40 mEq/L KCl 1,000 ML IV SCH (14:34)
[2018-11-02 14:39] VITALS: BP 101/58
== END 2018-11-02 14:49 | disposition short-term general hospital (02) ==
LOC: VM.ED 10:17
DX: K52.9 Noninfective gastroenteritis and colitis, unspecified (principal); Z79.899 Other long term (current) drug therapy
CPT/HCPCS: 36415; 74177; 80053; 81001; 82150; 82550; 83690; 83880; 84443; 84484; 85025; 86140; 96361; 96374; 96375; 99285-25; J1170; J2270; J2405; J3480; J7030; Q9967

== ENCOUNTER 2018-12-02 09:11 | Emergency (ER) | payer MEDICAID ==
[2018-12-02] MEDS ORDERED: Sodium Chloride 0.9% 10 ML Syringe FLUSH PRN (09:42)
[2018-12-02] MEDS ORDERED: Sodium Chloride 0.9% 1,000 ML IV ONE (09:43)
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
[2018-12-02] MEDS ORDERED: Iopamidol 612 MG/ML 100 ML Bottle IVPUSH ONE (10:41)
[2018-12-02 11:25] VITALS: BP 103/40
--- NOTE | 2018-12-02 11:30 | CT ---
[id number] CT/CTA Head EXAM: HEAD CT WITHOUT CONTRAST, CT ANGIOGRAM HEAD INDICATION: ALTERED LEVEL OF CONSCIOUSNESS. COMPARISON: None. DISCUSSION: The ventricles and sulci are normal in size and configuration. The [place] and white matter differentiation is maintained. No mass effect, midline shift, hydrocephalus or acute hemorrhage. No extra-axial collection. The orbits and paranasal sinuses are unremarkable. The [place] is normal in configuration with no vessel cut off, aneurysm, stenosis or other abnormality identified. IMPRESSION: 1. Normal CT angiogram and unenhanced head CTs. Christophe Alexander MD 12/02/18 1129 Thank you for allowing us to participate in the care of your patient.
== END 2018-12-02 11:57 | disposition home or self-care (01) ==
LOC: VM.ED 09:11
DX: T50.901A Poisoning by unspecified drugs, medicaments and biological substances, accidental (unintentional), initial encounter (principal); I95.9 Hypotension, unspecified; R40.0 Somnolence; Z79.899 Other long term (current) drug therapy
CPT/HCPCS: 70496; 80053; 80305; 81001; 83605; 85025; 87086; 87088; 87186; 93005; 96360; 96361; 99285; G0480; J7030; Q9967

== ENCOUNTER 2019-08-13 12:04 | Inpatient (IN) | payer MEDICAID ==
[2019-08-13] MEDS ORDERED: Sodium Chloride 0.9% 10 ML Syringe FLUSH PRN (12:20)
[2019-08-13] MEDS ORDERED: Sodium Chloride 0.9% 1,000 ML IV ONE ×2 (12:21→12:41)
[2019-08-13] MEDS ORDERED: LORazepam 2 MG/ML SDV IVPUSH ONE (12:21)
[2019-08-13 13:15] LABS: CHLORIDE,CL 102 mmol/L (98-107); SODIUM,NA 139 mmol/L (136-145)
[2019-08-13 13:20] LABS: ANION GAP 17.9 mmol/L (10-20)
[2019-08-13] MEDS ORDERED: LORazepam 1 MG Tab PO STA (13:21)
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
[2019-08-13 14:15] LABS: BARBITURATE SCREEN,URINE NEGATIVE (NEGATIVE); BENZODIAZEPINES SCREEN,URINE NEGATIVE (NEGATIVE); EDDP,URINE SCREEN NEGATIVE (NEGATIVE); METHAMPHETAMINE SCREEN, URINE NEGATIVE (NEGATIVE); TCA SCREEN,URINE NEGATIVE (NEGATIVE); THC SCREEN,URINE 50 NG/ML NEGATIVE (NEGATIVE)
[2019-08-13] MEDS ORDERED: Iopamidol 612 MG/ML 100 ML Bottle IVPUSH ONE (14:26)
[2019-08-13] MEDS ORDERED: Morphine 4 MG/ML Syringe IVPUSH ONE (14:40)
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
--- NOTE | 2019-08-13 15:19 | CT ---
[id number] CT/CT Chest Abdomen Pelvis W IV Exam: CT Chest Abdomen Pelvis W IV Clinical Data: TRAUMA PULMONARY PARENCHYMAL PATHOLOGY COMPARISON: CORRELATION IS MADE WITH THE CAT SCAN OF NOVEMBER 02, 2018 FINDINGS: Extensive bilateral upper and lower lobe infiltrates are seen. There is no mediastinal mass There is a mild degree of mediastinal adenopathy. There is no mediastinal hemorrhage The great vessels appear to be intact. The liver and spleen show no acute abnormalities There is moderate bowel distention in the abdomen and pelvis. There is no free air free fluid in the abdomen or pelvis. There is motion artifact The adrenals, aorta, and pancreas show no acute abnormalities. The gallbladder is not distended The appendix is not seen The uterus appears involuted The pelvis shows no mass or adenopathy IMPRESSION: EXTENSIVE BILATERAL UPPER AND LOWER LOBE PULMONARY PARENCHYMAL INFILTRATES DIFFERENTIAL DIAGNOSIS REMAINS BETWEEN PNEUMONIA VERSUS HEMORRHAGE MODERATE BOWEL DISTENTION Fernando Burns MD 08/13/19 [id number] Thank you for allowing us to participate in the care of your patient.
[2019-08-13] MEDS: Piperacillin/Tazobactam 4.5 GM in Sodium Chloride 0.9% 100 ML IV ONE ×3 (15:31→15:54)
[2019-08-13] MEDS ORDERED: Albuterol/Ipratropium 3.0-0.5 MG/3 ML Neb Soln NEB PRN (16:02)
[2019-08-13] MEDS ORDERED: Enoxaparin 40 MG/0.4 ML Syringe SUBCUT SCH (16:15)
[2019-08-13] MEDS ORDERED: Acetaminophen/oxyCODONE 325-5 MG Tab PO PRN (16:36)
[2019-08-13] MEDS ORDERED: Ascorbic Acid 500 MG Tab PO SCH (16:45)
[2019-08-13] MEDS ORDERED: DULoxetine 60 MG Cap PO SCH (16:45)
[2019-08-13] MEDS ORDERED: ATOMOXETINE HCL 100 MG PO SCH (16:45)
[2019-08-13] MEDS ORDERED: Omeprazole 20 MG Cap.CR PO SCH (17:00)
[2019-08-13] MEDS ORDERED: Vitamin B Complex Tab.ER PO SCH (17:15)
[2019-08-13] MEDS ORDERED: Ondansetron 4 MG Tab.DIS PO PRN (17:15)
[2019-08-13] MEDS: Ipratropium 0.02% 0.5 MG/2.5 ML Neb Soln INH SCH (18:23)
[2019-08-13] MEDS ORDERED: Haloperidol Lactate 5 MG/ML SDV IV STA (19:43)
[2019-08-13] MEDS ORDERED: QUEtiapine 100 MG Tab PO SCH (20:00)
[2019-08-13] MEDS ORDERED: busPIRone 15 MG Tab PO SCH (20:00)
[2019-08-13] MEDS ORDERED: ClonazePAM 0.5 MG Tab PO SCH (20:00)
[2019-08-13] MEDS ORDERED: traZODone 50 MG Tab PO SCH (20:00)
[2019-08-13] MEDS: LORazepam 2 MG/ML SDV IVPUSH PRN (20:16)
[2019-08-13] MEDS ORDERED: Piperacillin/Tazobactam 4.5 GM in Sodium Chloride 0.9% 100 ML IV SCH (22:00)
[2019-08-14] MEDS ORDERED: Piperacillin/Tazobactam 3.375 GM in Sodium Chloride 0.9% 100 ML IV SCH ×2
[2019-08-14] MEDS: LORazepam 2 MG/ML SDV IVPUSH PRN (00:02)
[2019-08-14] MEDS: Ipratropium 0.02% 0.5 MG/2.5 ML Neb Soln INH SCH (00:36)
[2019-08-14] MEDS ORDERED: Sodium Chloride 0.9% 1,000 ML IV ONE (03:24)
[2019-08-14] MEDS ORDERED: Sodium Chloride 0.9% 1,000 ML IV SCH ×2 (03:45→04:45)
[2019-08-14] MEDS ORDERED: Norepinephrine 4 MG in Dextrose 5% in Water 246 ML IV SCH ×2 (04:15)
[2019-08-14] MEDS ORDERED: Norepinephrine 4 MG/4 ML SDV ONE (04:18)
--- NOTE | 2019-08-14 04:48 | PCM.DCSUM1 ---
Discharge Summary - Hospital Course Free Text/Narrative:: Pt. was admitted to [facility] this afternoon with aspiration pneumonia and acute psychosis. Pt. has not been taking her psychiatric medications including buspar , seroquel, strattera, cymbalta, and klonopin. Pt. was very agitated on arrival. Pt. states that she had fallen several times in the past several days and complained of posterior chest wall/back pain. CT chest, abdomen and pelvis were obtained and showed aspiration pneumonia. Pt. was started on IV zosyn and admitted. On the floor, pt. was agitated. 5 mg of Haldol and 1 mg of Ativan was ordered IV by Juan Diego DALE. It was brought to my attention that the patient's blood pressure had dropped into the 70s systolic and her heart rate increased into the 120s. Given the decompensation of the patient, decision was made to transfer the patient to [facility]. - Discharge Data Discharge Date: 08/14/19 Discharge Disposition: Home, Self-Care 01 Condition: Good - Referral to Home Health Primary Care Physician: Delmy Burrell, DO - Discharge Plan Home Medications: Home Meds Tiotropium [Spiriva Handihaler] 18 mcg INH DAILY 09/15/14 [History] ClonazePAM [KlonoPIN] 1 mg PO TID 10/12/16 [History] Omeprazole 20 mg PO BID 10/12/16 [History] Albuterol [Ventolin HFA] 8 gm INH Q4H PRN 03/25/17 [History] Cholecalciferol (Vitamin D3) [Vitamin D] 50,000 unit PO Q7D 03/25/17 [History] Fluticasone Propionate [Flonase] 1 spray NASBOTH BID 03/25/17 [History] busPIRone [Buspar] 15 mg PO TID 03/25/17 [History] DULoxetine [Cymbalta] 120 mg PO DAILY 11/02/18 [History] Linaclotide [Linzess] 290 mcg PO DAILY 11/02/18 [History] Vitamin B Complex 1 each PO DAILY 11/02/18 [History] atoMOXetine HCl [Strattera] 100 mg PO DAILY 11/02/18 [History] Ondansetron [Zofran] 4 mg PO TID PRN 06/23/19 [History] Ascorbic Acid [Vitamin C] 1 cap PO DAILY 08/13/19 [History] Nicotine Polacrilex [Nicorette] 1 lozenge PO Q4HR PRN 08/13/19 [History] QUEtiapine [SEROquel] 1 tab PO BEDTIME 08/13/19 [History] oxyCODONE HCl/Acetaminophen [Percocet 5-325 mg Tablet] 1 - 2 tab PO DAILY PRN [History] traZODone HCl [Trazodone HCl] 300 mg PO BEDTIME 08/13/19 [History] Forms: ED Department Discharge, Interfacility Transfer EMTALA Referrals: Delmy Burrell DO [Primary Care Provider] - - Discharge Summary/Plan Comment DC Time >30 min.: Yes Discharge Summary/Plan Comment: Pt. was given a liter of NS IV and started on NS with 40KCL at 150ml/hr. She remained hypotensive and was started on IV levophed at 4 mcg/min. Labs consisting of troponin, CBC, CMP, and lactic acid were ordered and are pending. Pt. was started on vancomycin 1000mg IV. Troponin was negative and lactic acid was 1.3. CT brain showed no acute pathology. Pt. continued to have increased work of breathing and became more hypoxic with an O2 sats in the high 90s. Pt. blood pressure had improved into the 90/40 on levophed at 8 mcg/min. To note, pt. O2 BP is often in the 90s during clinic visits. - General Info Date of Service: 08/14/19 Functional Status: Reports: Pain Controlled - Review of Systems General: Reports: Fatigue, Malaise HEENT: Reports: No Symptoms Pulmonary: Reports: Shortness of Breath, Cough Cardiovascular: Reports: No Symptoms Gastrointestinal: Reports: No Symptoms Genitourinary: Reports: No Symptoms Musculoskeletal: Reports: No Symptoms Skin: Reports: No Symptoms Neurological: Reports: Confusion Psychiatric: Reports: Anxiety, Agitation - Patient Data Vitals - Most Recent: Last Vital Signs Temp 37.6 C 08/14/19 02:00 Pulse 123 H 08/14/19 02:00 Resp 46 H 08/14/19 02:00 BP 79/35 L 08/14/19 02:00 Pulse Ox 97 08/14/19 02:00 Weight - Most Recent: 54.794 kg Lab Results - Last 24 hrs: Laboratory Results - last 24 hr 08/13/19 08/13/19 08/13/19 Range/Units 12:48 12:48 12:48 WBC 2.4 L (4.0-10.0) x10^3/uL RBC 4.14 (4.00-5.50) x10^6/uL Hgb 13.1 (12.0-16.0) g/dL Hct 35.7 (33.0-47.0) % MCV 86.2 D (78.0-93.0) fL MCH 31.6 (26.0-32.0) pg MCHC 36.7 H (32.0-36.0) g/dL RDW Coeff of Gordon 12.4 (10.0-15.0) % Plt Count 107 L (130-400) x10^3/uL Add Manual Diff Yes Neutrophils % (Manual) 39 L (50-80) % Band Neutrophils % 15 H (0-6) % Lymphocytes % (Manual) 22 L (25-50) % Reactive Lymphs % 3 H (0) % Monocytes % (Manual) 18 H (2-11) % Metamyelocytes % 3 H (0) % Vacuolated Monocytes Many Platelet Estimate Decreased L PT 10.0 (10.0-12.8) SEC INR 0.9 L (2.0-3.5) Sodium 139 (136-145) mmol/L Potassium 2.9 L* (3.5-5.1) mmol/L Chloride 102 (98-107) mmol/L Carbon Dioxide 22 (21-32) mmol/L Anion Gap 17.9 (10-20) mmol/L BUN 34 H (7-18) mg/dL Creatinine 1.4 H (0.55-1.02) mg/dL Est Cr Clr Drug Dosing TNP Estimated GFR (MDRD) 38 Glucose 100 (74-106) mg/dL Calcium 10.0 (8.5-10.1) mg/dL Corrected Calcium 11.44 H D (8.5-10.1) mg/dL Magnesium 2.0 (1.8-2.4) mg/dL Total Bilirubin 1.5 H (0.2-1.0) mg/dL AST 122 H (15-37) U/L ALT 84 H (14-59) U/L Alkaline Phosphatase 90 (46-116) U/L Total Protein 6.7 (6.4-8.2) g/dL Albumin 2.2 L (3.4-5.0) g/dL Globulin 4.5 Albumin/Globulin Ratio 0.49 Urine Color (YELLOW) Urine Appearance (CLEAR) Urine pH (5.0-8.0) Ur Specific [place] Urine Protein (NEGATIVE) mg/dL Urine Glucose (UA) (NEGATIVE) mg/dL Urine Ketones (NEGATIVE) mg/dL Urine Occult Blood (NEGATIVE) Urine Nitrite (NEGATIVE) Urine Bilirubin (NEGATIVE) Urine Urobilinogen (0.2) EU/dL Ur Leukocyte Esterase (NEGATIVE) Urine RBC (NOT SEEN) /HPF Urine WBC (NOT SEEN) /HPF Ur Squamous Epith Cells (NEGATIVE) /HPF Urine Bacteria (NEGATIVE) /HPF Hyaline Casts (NEGATIVE) /HPF Granular Casts (NEGATIVE) /HPF Urine Mucus (NEGATIVE) /LPF Urine Opiates Screen (NEGATIVE) Ur Buprenorphine Scrn (NEGATIVE) Ur Oxycodone Screen (NEGATIVE) Ur EDDP (Meth Metab) (NEGATIVE) Urine Methadone Screen (NEGATIVE) Ur Barbiturates Screen (NEGATIVE) Ur Tricyclics Screen (NEGATIVE) Ur Phencyclidine Scrn (NEGATIVE) Ur Amphetamine Screen (NEGATIVE) U Methamphetamines Scrn (NEGATIVE) Urine MDMA Screen (NEGATIVE) U Benzodiazepines Scrn (NEGATIVE) U Cocaine Metab Screen (NEGATIVE) U Marijuana (THC) Screen (NEGATIVE) 08/13/19 08/13/19 Range/Units 14:01 14:01 WBC (4.0-10.0) x10^3/uL RBC (4.00-5.50) x10^6/uL Hgb (12.0-16.0) g/dL Hct (33.0-47.0) % MCV (78.0-93.0) fL MCH (26.0-32.0) pg MCHC (32.0-36.0) g/dL RDW Coeff of Gordon (10.0-15.0) % Plt Count (130-400) x10^3/uL Add Manual Diff Neutrophils % (Manual) (50-80) % Band Neutrophils % (0-6) % Lymphocytes % (Manual) (25-50) % Reactive Lymphs % (0) % Monocytes % (Manual) (2-11) % Metamyelocytes % (0) % Vacuolated Monocytes Platelet Estimate PT (10.0-12.8) SEC INR (2.0-3.5) Sodium (136-145) mmol/L Potassium (3.5-5.1) mmol/L Chloride (98-107) mmol/L Carbon Dioxide (21-32) mmol/L Anion Gap (10-20) mmol/L BUN (7-18) mg/dL Creatinine (0.55-1.02) mg/dL Est Cr Clr Drug Dosing Estimated GFR (MDRD) Glucose (74-106) mg/dL Calcium (8.5-10.1) mg/dL Corrected Calcium (8.5-10.1) mg/dL Magnesium (1.8-2.4) mg/dL Total Bilirubin (0.2-1.0) mg/dL AST (15-37) U/L ALT (14-59) U/L Alkaline Phosphatase (46-116) U/L Total Protein (6.4-8.2) g/dL Albumin (3.4-5.0) g/dL Globulin Albumin/Globulin Ratio Urine Color Rekha H (YELLOW) Urine Appearance Slightly cloudy H (CLEAR) Urine pH 6.0 (5.0-8.0) Ur Specific [place] 1.025 Urine Protein >=300 H (NEGATIVE) mg/dL Urine Glucose (UA) Negative (NEGATIVE) mg/dL Urine Ketones Negative (NEGATIVE) mg/dL Urine Occult Blood Large H (NEGATIVE) Urine Nitrite Negative (NEGATIVE) Urine Bilirubin Small H (NEGATIVE) Urine Urobilinogen 1.0 (0.2) EU/dL Ur Leukocyte Esterase Negative (NEGATIVE) Urine RBC 5-10 H (NOT SEEN) /HPF Urine WBC 0-5 (NOT SEEN) /HPF Ur Squamous Epith Cells Rare (NEGATIVE) /HPF Urine Bacteria Not seen (NEGATIVE) /HPF Hyaline Casts Few H (NEGATIVE) /HPF Granular Casts Few H (NEGATIVE) /HPF Urine Mucus Not seen (NEGATIVE) /LPF Urine Opiates Screen Negative (NEGATIVE) Ur Buprenorphine Scrn Negative (NEGATIVE) Ur Oxycodone Screen Negative (NEGATIVE) Ur EDDP (Meth Metab) Negative (NEGATIVE) Urine Methadone Screen Negative (NEGATIVE) Ur Barbiturates Screen Negative (NEGATIVE) Ur Tricyclics Screen Negative (NEGATIVE) Ur Phencyclidine Scrn Negative (NEGATIVE) Ur Amphetamine Screen Negative (NEGATIVE) U Methamphetamines Scrn Negative (NEGATIVE) Urine MDMA Screen Negative (NEGATIVE) U Benzodiazepines Scrn Negative (NEGATIVE) U Cocaine Metab Screen Negative (NEGATIVE) U Marijuana (THC) Screen Negative (NEGATIVE) Med Orders - Current: Current Medications Albuterol/Ipratropium (Duoneb 3.0-0.5 Mg/3 Ml) 3 ml NEB Q6HRRT PRN PRN Reason: Shortness of Breath Last Admin: 08/13/19 17:44 Dose: 3 ml Ascorbic Acid (Vitamin C) 500 mg PO DAILY [facility] Last Admin: 08/13/19 17:43 Dose: 500 mg Buspirone HCl (Buspar) 15 mg PO TID [facility] Last Admin: 08/13/19 20:17 Dose: 15 mg Clonazepam (Klonopin) 1 mg PO TID [facility] Last Admin: 08/13/19 20:17 Dose: 1 mg Duloxetine HCl (Cymbalta) 120 mg PO DAILY [facility] Last Admin: 08/13/19 17:35 Dose: 120 mg Enoxaparin Sodium (Lovenox) 40 mg SUBCUT DAILY [facility] Last Admin: 08/13/19 17:34 Dose: 40 mg Piperacillin Sod/Tazobactam (Sod 3.375 gm/ Sodium Chloride) 100 mls @ 25 mls/ hr IV Q8H [facility] Last Admin: 08/14/19 00:05 Dose: 25 mls/hr Sodium Chloride (Normal Saline) 1,000 mls @ 1,000 mls/hr IV ASDIRECTED NORIS Norepinephrine Bitartrate 4 mg (/ Dextrose/Water) 250 mls @ 7.5 mls/hr IV TITRATE NORIS; Protocol Vancomycin HCl 1 gm/ Sodium (Chloride) 250 mls @ 250 mls/hr IV STAT ONE Stop: 08/14/19 05:09 Last Admin: 08/14/19 04:36 Dose: 250 mls/hr Ipratropium [place] (Atrovent) 0.2 mg INH Q6HRRT [facility] Last Admin: 08/14/19 00:36 Dose: 0.2 mg Omeprazole (Omeprazole) 20 mg PO BIDAC [facility] Last Admin: 08/13/19 17:37 Dose: 20 mg Ondansetron HCl (Zofran Odt) 4 mg PO TID PRN PRN Reason: Nausea Last Admin: 08/13/19 17:34 Dose: 4 mg Oxycodone/Acetaminophen (Percocet 325-5 Mg) 1 - 2 tab PO DAILY PRN PRN Reason: Pain (severe 7-10) Quetiapine Fumarate (Seroquel) 100 mg PO BEDTIME [facility] Last Admin: 08/13/19 20:17 Dose: 100 mg Sodium Chloride (Saline Flush) 10 ml FLUSH ASDIRECTED PRN PRN Reason: Keep Vein Open Trazodone HCl (Trazodone) 300 mg PO BEDTIME [facility] Last Admin: 08/13/19 20:17 Dose: 300 mg Vitamin B Complex (Balanced B-50) 1 each PO DAILY [facility] Last Admin: 08/13/19 17:36 Dose: 1 each Discontinued Medications Haloperidol Lactate (Haldol) 5 mg IV ONETIME STA Stop: 08/13/19 19:44 Last Admin: 08/13/19 20:17 Dose: 5 mg Sodium Chloride (Normal Saline) 1,000 mls @ 1,000 mls/hr IV .BOLUS ONE Stop: 08/13/19 13:20 Last Admin: 08/13/19 14:16 Dose: Not Given Sodium Chloride (Normal Saline) 1,000 mls @ 999 mls/hr IV ONETIME ONE Stop: 08/13/19 13:41 Last Admin: 08/13/19 12:50 Dose: 999 mls/hr Piperacillin Sod/Tazobactam (Sod 4.5 gm/ Sodium Chloride) 100 mls @ 200 mls/hr IV STAT ONE Stop: 08/13/19 15:56 Last Admin: 08/13/19 15:54 Dose: 200 mls/hr Piperacillin Sod/Tazobactam (Sod 4.5 gm/ Sodium Chloride) 100 mls @ 200 mls/hr IV Q6H [facility] Sodium Chloride (Normal Saline) 1,000 mls @ 999 mls/hr IV ONETIME ONE Stop: 08/14/19 04:24 Iopamidol (Isovue-300 (61%)) 100 ml IVPUSH ONETIME ONE Stop: 08/13/19 14:27 Last Admin: 08/13/19 14:56 Dose: 100 ml Lorazepam (Ativan) 1 mg IVPUSH STAT ONE Stop: 08/13/19 12:22 Last Admin: 08/13/19 12:51 Dose: 1 mg Lorazepam (Ativan) 1 mg PO NOW STA Stop: 08/13/19 13:22 Last Admin: 08/13/19 13:25 Dose: 1 mg Lorazepam (Ativan) 1 mg IVPUSH Q4H PRN PRN Reason: Agitation Last Admin: 08/14/19 00:02 Dose: 1 mg Morphine Sulfate (Morphine) 4 mg IVPUSH ONETIME ONE Stop: 08/13/19 14:41 Last Admin: 08/13/19 14:43 Dose: 4 mg Non-Formulary Medication (Atomoxetine Hcl [Strattera]) 100 mg PO DAILY [facility] Last Admin: 08/13/19 17:55 Dose: Not Given Norepinephrine Bitartrate (Levophed) Confirm Administered Dose 4 mg .ROUTE .STK- MED ONE Stop: 08/14/19 04:19 Last Admin: 08/14/19 04:24 Dose: 4 mg - Exam Quality Assessment: Reports: Supplemental Oxygen General: Reports: Lethargic HEENT: Reports: Pupils Equal, Pupils Reactive, EOMI Neck: Reports: Supple Lungs: Reports: Decreased Breath Sounds, Crackles, Rhonchi Cardiovascular: Reports: Regular Rhythm, Tachycardia GI/Abdominal Exam: Normal Bowel Sounds, Soft, Non-Tender, No Organomegaly, No Distention, No Abnormal Bruit, No Mass, Pelvis Stable (Female) Exam: Deferred Rectal (Female) Exam: Deferred Back Exam: Reports: Normal Inspection, Full Range of Motion Extremities: Normal Inspection, Normal Range of Motion, Non-Tender, No Pedal Edema, Normal Capillary Refill Skin: Reports: Warm, Dry, Intact Neurological: Reports: No New Focal Deficit Psy/Mental Status: Reports: Alert, Agitated
[2019-08-14 04:57] LABS: ANION GAP 20.7 mmol/L (10-20)
[2019-08-14] MEDS ORDERED: Sodium Chloride 0.9% with KCl 1,000 ML IV SCH (05:00)
[2019-08-14] MEDS ORDERED: D5 1/2 NS w/ 40 mEq/L KCl 1,000 ML IV SCH (05:15)
[2019-08-14] MEDS ORDERED: LORazepam 2 MG/ML SDV IVPUSH ONE (06:48)
[2019-08-14 07:27] VITALS: BP 88/46; PULSE 119
--- NOTE | 2019-08-14 08:44 | CT ---
[id number] CT/CT Head WO IV EXAM: CT Head WO IV CLINICAL DATA: CHANGE IN MENTAL STATUS COMPARISON: CORRELATION IS MADE WITH THE EXAM OF DECEMBER 02, 2018 FINDINGS: Motion artifact degrades image detail There is no mass or mass effect. There is no hemorrhage or hydrocephalus. There are no extra-axial fluid collections. There are no sites of abnormal attenuation. IMPRESSION: NO PLAIN CT EVIDENCE OF ACUTE INTRACRANIAL PROCESS. MOTION ARTIFACT CONSIDER FOLLOW-UP STUDIES Fernando Burns MD 08/14/19 0844 Thank you for allowing us to participate in the care of your patient.
== END 2019-08-14 07:10 | disposition home or self-care (01) | DRG 178 ==
LOC: VM.ED 12:04 → VM.MS 15:24
PROVIDERS: ADMIT Physician Assistant; ATTEND Internal Medicine
PROC: 3E033XZ Introduction of Vasopressor into Peripheral Vein, Percutaneous Approach (ICD-10-PCS; principal; 2019-08-13)
DX: J69.0 Pneumonitis due to inhalation of food and vomit (principal); F23 Brief psychotic disorder; I95.9 Hypotension, unspecified; J44.9 Chronic obstructive pulmonary disease, unspecified; F41.0 Panic disorder [episodic paroxysmal anxiety]; F90.9 Attention-deficit hyperactivity disorder, unspecified type; K21.9 Gastro-esophageal reflux disease without esophagitis; M19.90 Unspecified osteoarthritis, unspecified site; H91.90 Unspecified hearing loss, unspecified ear; R45.1 Restlessness and agitation; R29.6 Repeated falls; Z91.19 Patient's noncompliance with other medical treatment and regimen; Z79.899 Other long term (current) drug therapy
CPT/HCPCS: 36415; 70450; 71045; 71260; 74177; 80053; 80305-QW; 81001; 83605; 83735; 84484; 85025; 85610; 87040; 93005; 94660; 94760; A9270-GY; J1630; J1650; J2060; J2270; J2543; J3370; J3480; J7030; J7050; J7620-GY; Q9967

== ENCOUNTER 2019-09-27 17:23 | Observation (INO) | payer MEDICAID ==
[2019-09-27] MEDS ORDERED: Sodium Chloride 0.9% 10 ML Syringe FLUSH PRN (18:45)
--- NOTE | 2019-09-27 18:55 | EDM.PDOC ---
ED HPI GENERAL MEDICAL PROBLEM - General Stated Complaint: FALL Time Seen by Provider: 09/27/19 18:34 Source of Information: Reports: Patient, Family - History of Present Illness INITIAL COMMENTS - FREE TEXT/NARRATIVE: Bri is a 64 y/o female who is brought to the ER by her son after he talked to her today and she seemed confused. Apparently she is quite weak and reports that she fell three times in her home and could not get up.It is unclear if she has taken her medications. She apparently had a long tern hospitalization and was discharged from [facility] last Thursday and has been in her own home since. Her son reports that she has been able to cook fro herself and do her own ADL's. He has not assisted her with medications and is unsure if she is taking them as prescribed. Patient cannot answer whether or not she is taking her meds and just says, "I think so. " Left Middle Back Pain Score (Numeric/FACES): 9 - Related Data Allergies Allergy/AdvReac Type Severity Reaction Status Date / Time No Known Allergies Allergy Verified 09/27/19 20:16 Home Meds: Home Meds Tiotropium [Spiriva Handihaler] 18 mcg INH DAILY 09/15/14 [History] ClonazePAM [KlonoPIN] 1 mg PO TID 10/12/16 [History] Omeprazole 20 mg PO BID 10/12/16 [History] Albuterol [Ventolin HFA] 8 gm INH Q4H PRN 03/25/17 [History] Cholecalciferol (Vitamin D3) [Vitamin D] 50,000 unit PO Q7D 03/25/17 [History] Fluticasone Propionate [Flonase] 1 spray NASBOTH BID 03/25/17 [History] busPIRone [Buspar] 15 mg PO TID 03/25/17 [History] DULoxetine [Cymbalta] 120 mg PO DAILY 11/02/18 [History] Linaclotide [Linzess] 290 mcg PO DAILY 11/02/18 [History] Vitamin B Complex 1 each PO DAILY 11/02/18 [History] atoMOXetine HCl [Strattera] 100 mg PO DAILY 11/02/18 [History] Ondansetron [Zofran] 4 mg PO TID PRN 06/23/19 [History] Ascorbic Acid [Vitamin C] 1 cap PO DAILY 08/13/19 [History] Nicotine Polacrilex [Nicorette] 1 lozenge PO Q4HR PRN 08/13/19 [History] QUEtiapine [SEROquel] 1 tab PO BEDTIME 08/13/19 [History] oxyCODONE HCl/Acetaminophen [Percocet 5-325 mg Tablet] 1 - 2 tab PO DAILY PRN [History] traZODone HCl [Trazodone HCl] 300 mg PO BEDTIME 08/13/19 [History] Past Medical History HEENT History: Reports: None Other HEENT History: deaf partly; and arthritis; nasal decongestion Other Cardiovascular History: Patient states she has chronic low blood pressure Respiratory History: Reports: Other (See Below) Other Respiratory History: influenza Gastrointestinal History: Reports: GERD Other Gastrointestinal History: History of C. diff Genitourinary History: Reports: Urinary Incontinence, UTI, Recurrent Other Genitourinary History: stress incont Musculoskeletal History: Reports: Back Pain, Chronic, Other (See Below) Other Musculoskeletal History: Osteopenia. Osteomyelitis of vertebra. Unjury of meniscus of right knee. Lumbar degenerative disc disease. Sacroiliac joint disease. Chronic left-sided low back pain without sciatica Neurological History: Reports: Other (See Below) Other Neuro History: Restless leg syndrome. 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 Low back pain with radiation Psychiatric History: Reports: ADHD, Anxiety, Panic Attack Other Psychiatric History: History of alcohol abuse. Major depressive disorder with recurrent severe, without psychosis. Smoking history. Bulimia nervosa. Eating disorder in remission Endocrine/Metabolic History: Reports: Other (See Below) Other Endocrine/Metabolic History: Hypervitaminosis D Dermatologic History: Reports: Other (See Below) Other Dermatologic History: Lipoma - Past Surgical History Head Surgeries/Procedures: Reports: None Other HEENT Surgeries/Procedures: poor historian Social & Family History - Family History Family Medical History: Noncontributory - Caffeine Use Caffeine Use: Reports: Coffee Review of Systems - Review of Systems Review Of Systems: See Below Reason Not Obtained: Difficult to obtain from patient Constitutional: Reports: Weakness. Denies: Fever Eyes: Reports: No Symptoms Ears: Reports: No Symptoms Nose: Reports: No Symptoms Mouth/Throat: Reports: No Symptoms Respiratory: Reports: No Symptoms Cardiovascular: Reports: No Symptoms GI/Abdominal: Denies: Decreased Appetite Genitourinary: Reports: No Symptoms Musculoskeletal: Reports: No Symptoms Skin: Reports: No Symptoms Neurological: Reports: Weakness Psychiatric: Reports: Confusion ED EXAM, GENERAL - Physical Exam Exam: See Below General Appearance: Alert, WD/WN, No Apparent Distress (Adult female.) Eye Exam: Bilateral Eye: PERRL Ears: Normal External Exam, Normal Canal, Hearing Grossly Normal, Normal TMs Nose: Normal Inspection, Normal Mucosa Throat/Mouth: Normal Inspection, Normal Lips, Normal Oropharynx, Other (+ Dentures) Head: Atraumatic, Normocephalic Neck: Normal Inspection, Supple, Non-Tender Respiratory/Chest: No Respiratory Distress, Lungs Clear, Normal Breath Sounds, No Accessory Muscle Use, Chest Non-Tender Cardiovascular: Normal Peripheral Pulses, Regular Rate, Rhythm, No Edema, No JVD GI/Abdominal: Normal Bowel Sounds, Soft, Non-Tender (Female) Exam: Deferred Rectal (Female) Exam: Deferred Back Exam: Normal Inspection Extremities: Normal Inspection, Normal Range of Motion, No Pedal Edema, Normal Capillary Refill Neurological: Alert, Oriented, CN II-XII Intact Psychiatric: Flat Affect Skin Exam: Warm, Dry, Intact, Normal Color, No Rash Lymphatic: No Adenopathy EKG INTERPRETATION EKG Date: 09/27/19 Rhythm: NSR [place]: Normal P-Wave: Present QRS: Normal ST-T: Normal Course - Vital Signs Text/Narrative:: The patient was seen by the WATER [employer]ATMENT PLANT REPAIRER. Labs, EKG, CXR, and Head Ct ordered. [address] Lisa Dunn regarding admission. Will start IV fluids. 1954 W[employer] T[employer]ATMENT PLANT REPAIRER discussed with patient regarding sending patient back to [facility] and patient became upset and reported that she is not going to [facility]. 2019 Dr Gutierrez, Hospitalist at [facility] returns call. Case discussed. Dr Munson feels patient is more appropriate for a Psych admission. [facility] checking bed status at Psych Unit. 2044 W[employer] T[employer]AT[employer] REPAIRER discussed case with Dr Connolly in Psych who declines patient for admission stating that her only issue is social related and that she only needs medication management. Patient's son refusing to take patient home with him tonight and states that he has to work and cannot stay in town due to impending storm coming in. 2099 W[employer] TREATMENT PLANT REPAIRER discussed with Dr Lisa Delacruz here in [place]. Advised son that patient can be admitted to Observation status tonight and then will have the manager social work see the patient in the AM and assist with vermin exterminator placement. Discussed with son that patient may still need to go home with him or family assistance until other plans can be made. Son and patient agree and are aware of the Observation status. Will admit patient tonight and then have Dr Raisa Dunn follow the patient in the AM. Last Recorded V/S: Last Vital Signs Temp 36.6 C 09/27/19 18:00 Pulse 84 09/27/19 18:00 Resp 16 09/27/19 18:00 BP 120/62 09/27/19 18:00 Pulse Ox 96 09/27/19 18:00 - Orders/Labs/Meds Orders: Active Orders 24 hr Category Date Time Status EKG Documentation Completion [RC] STAT Care 09/27/19 18:45 Active Chest 2V [CR] Stat Exams 09/27/19 18:46 Taken INFLUENZA A+B AG SCREEN [RM] Stat Lab 09/27/19 18:45 Ordered Sodium Chloride 0.9% [Saline Flush] Med 09/27/19 18:45 Active 10 ml FLUSH ASDIRECTED PRN Saline Lock Insert [OM.PC] Stat Oth 09/27/19 18:45 Ordered Medication Orders Sodium Chloride (Saline Flush) 10 ml FLUSH ASDIRECTED PRN PRN Reason: Keep Vein Open Labs: Laboratory Tests 09/27/19 09/27/19 09/27/19 Range/Units 18:58 18:58 19:55 WBC 4.8 (4.0-10.0) x10^3/uL RBC 3.50 L (4.00-5.50) x10^6/uL Hgb 11.3 L (12.0-16.0) g/dL Hct 34.4 (33.0-47.0) % MCV 98.3 H D (78.0-93.0) fL MCH 32.3 H (26.0-32.0) pg MCHC 32.8 (32.0-36.0) g/dL RDW Coeff of Gordon 14.9 (10.0-15.0) % Plt Count 137 (130-400) x10^3/uL Neut % (Auto) 56.6 (50.0-80.0) % Lymph % (Auto) 31.7 (25.0-50.0) % [place] % (Auto) 9.0 (2.0-11.0) % Eos % (Auto) 2.1 (0.0-4.0) % Baso % (Auto) 0.6 (0.2-1.2) % Sodium 144 (136-145) mmol/L Potassium 4.1 (3.5-5.1) mmol/L Chloride 107 (98-107) mmol/L Carbon Dioxide 28 D (21-32) mmol/L Anion Gap 13.1 (10-20) mmol/L BUN 38 H (7-18) mg/dL Creatinine 1.2 H (0.55-1.02) mg/dL Est Cr Clr Drug Dosing TNP Estimated GFR (MDRD) 45 Glucose 103 (74-106) mg/dL Calcium 8.8 (8.5-10.1) mg/dL Corrected Calcium 9.28 (8.5-10.1) mg/dL Total Bilirubin 0.4 (0.2-1.0) mg/dL AST 12 L (15-37) U/L ALT 17 (14-59) U/L Alkaline Phosphatase 73 (46-116) U/L Creatine Kinase 46 (26-192) U/L Troponin I < 0.017 (<=0.056) ng/mL Total Protein 7.1 (6.4-8.2) g/dL Albumin 3.4 (3.4-5.0) g/dL Globulin 3.7 Albumin/Globulin Ratio 0.92 Urine Color Dark yellow H (YELLOW) Urine Appearance Slightly cloudy H (CLEAR) Urine pH 6.0 (5.0-8.0) Ur Specific [place] 1.020 Urine Protein Negative (NEGATIVE) mg/dL Urine Glucose (UA) Negative (NEGATIVE) mg/dL Urine Ketones Negative (NEGATIVE) mg/dL Urine Occult Blood Negative (NEGATIVE) Urine Nitrite Negative (NEGATIVE) Urine Bilirubin Negative (NEGATIVE) Urine Urobilinogen 0.2 (0.2) EU/dL Ur Leukocyte Esterase Trace H (NEGATIVE) Urine RBC 0-5 (NOT SEEN) /HPF Urine WBC 0-5 (NOT SEEN) /HPF Ur Squamous Epith Cells Rare (NEGATIVE) /HPF Amorphous Sediment Few Urine Bacteria Few H (NEGATIVE) /HPF Urine Mucus Few H (NEGATIVE) /LPF Urine Opiates Screen (NEGATIVE) Ur Buprenorphine Scrn (NEGATIVE) Ur Oxycodone Screen (NEGATIVE) Ur EDDP (Meth Metab) (NEGATIVE) Urine Methadone Screen (NEGATIVE) Ur Barbituates Screen (NEGATIVE) Ur Tricyclics Screen (NEGATIVE) Ur Phencyclidine Scrn (NEGATIVE) Ur Amphetamines Screen (NEGATIVE) U Methamphetamines Scrn (NEGATIVE) Urine MDMA Screen (NEGATIVE) U Benzodiazepines Scrn (NEGATIVE) Urine Cocaine Screen (NEGATIVE) U Marijuana (THC) Screen (NEGATIVE) Ethyl Alcohol < 3 (0-3) mg/dL 09/27/19 Range/Units 19:55 WBC (4.0-10.0) x10^3/uL RBC (4.00-5.50) x10^6/uL Hgb (12.0-16.0) g/dL Hct (33.0-47.0) % MCV (78.0-93.0) fL MCH (26.0-32.0) pg MCHC (32.0-36.0) g/dL RDW Coeff of Gordon (10.0-15.0) % Plt Count (130-400) x10^3/uL Neut % (Auto) (50.0-80.0) % Lymph % (Auto) (25.0-50.0) % [place] % (Auto) (2.0-11.0) % Eos % (Auto) (0.0-4.0) % Baso % (Auto) (0.2-1.2) % Sodium (136-145) mmol/L Potassium (3.5-5.1) mmol/L Chloride (98-107) mmol/L Carbon Dioxide (21-32) mmol/L Anion Gap (10-20) mmol/L BUN (7-18) mg/dL Creatinine (0.55-1.02) mg/dL Est Cr Clr Drug Dosing Estimated GFR (MDRD) Glucose (74-106) mg/dL Calcium (8.5-10.1) mg/dL Corrected Calcium (8.5-10.1) mg/dL Total Bilirubin (0.2-1.0) mg/dL AST (15-37) U/L ALT (14-59) U/L Alkaline Phosphatase (46-116) U/L Creatine Kinase (26-192) U/L Troponin I (<=0.056) ng/mL Total Protein (6.4-8.2) g/dL Albumin (3.4-5.0) g/dL Globulin Albumin/Globulin Ratio Urine Color (YELLOW) Urine Appearance (CLEAR) Urine pH (5.0-8.0) Ur Specific [place] Urine Protein (NEGATIVE) mg/dL Urine Glucose (UA) (NEGATIVE) mg/dL Urine Ketones (NEGATIVE) mg/dL Urine Occult Blood (NEGATIVE) Urine Nitrite (NEGATIVE) Urine Bilirubin (NEGATIVE) Urine Urobilinogen (0.2) EU/dL Ur Leukocyte Esterase (NEGATIVE) Urine RBC (NOT SEEN) /HPF Urine WBC (NOT SEEN) /HPF Ur Squamous Epith Cells (NEGATIVE) /HPF Amorphous Sediment Urine Bacteria (NEGATIVE) /HPF Urine Mucus (NEGATIVE) /LPF Urine Opiates Screen Negative (NEGATIVE) Ur Buprenorphine Scrn Negative (NEGATIVE) Ur Oxycodone Screen Positive H (NEGATIVE) Ur EDDP (Meth Metab) Negative (NEGATIVE) Urine Methadone Screen Negative (NEGATIVE) Ur Barbituates Screen Negative (NEGATIVE) Ur Tricyclics Screen Negative (NEGATIVE) Ur Phencyclidine Scrn Negative (NEGATIVE) Ur Amphetamines Screen Negative (NEGATIVE) U Methamphetamines Scrn Negative (NEGATIVE) Urine MDMA Screen Negative (NEGATIVE) U Benzodiazepines Scrn Negative (NEGATIVE) Urine Cocaine Screen Negative (NEGATIVE) U Marijuana (THC) Screen Negative (NEGATIVE) Ethyl Alcohol (0-3) mg/dL Meds: Medications Generic Name Dose Route Start Last Admin Trade Name Freq PRN Reason Stop Dose Admin Sodium Chloride 10 ml 09/27/19 18:45 Saline Flush FLUSH ASDIRECTED PRN Keep Vein Open Discontinued Medications Generic Name Dose Route Start Last Admin Trade Name Freq PRN Reason Stop Dose Admin Sodium Chloride 1,000 mls @ 999 mls/hr 09/27/19 19:36 09/27/19 20:20 Normal Saline IV 09/27/19 20:36 999 mls/hr ONETIME ONE Administration - Radiology Interpretation Free Text/Narrative:: CT Head WO=negative CXR=no acute findings (final report pending) Departure - Departure Time of Disposition: 21:27 Disposition: Refer to Observation Condition: Good Clinical Impression: Weakness, Alteration in self-care ability, Confusion, Depressive disorder, Anxiety - Discharge Information *PRESCRIPTION DRUG MONITORING PROGRAM REVIEWED*: Not Applicable *COPY OF PRESCRIPTION DRUG MONITORING REPORT IN PATIENT KEARA: Not Applicable Referrals: Delmy Burrell, DO [Primary Care Provider] - Additional Instructions: -Admit to Observation tonight -Dr Lisa Dunn to see pt in the AM -Manager Fiber to see pt in AM and assist family with LTC placement Sepsis Event Note - Focused Exam Vital Signs: Vital Signs Temp Pulse Resp BP Pulse Ox 09/27/19 18:00 36.6 C 84 16 120/62 96 Date Exam was Performed: 09/27/19 Time Exam was Performed: 21:24 - Problem List & Annotations (1) Weakness SNOMED Code(s): 62479989 Code(s): R53.1 - WEAKNESS Status: Acute Current Visit: Yes (2) Alteration in self-care ability SNOMED Code(s): 425189143 Code(s): R53.81 - OTHER MALAISE Status: Acute Current Visit: Yes Annotation/Comment:: -Admit to Observation tonight -Manager Fiber to see in AM -PCP to see -Erick carter since patient was at [facility] and vermin exterminator intubated for Aspiration Pneumonia; Discharged 6 days ago (3) Anxiety SNOMED Code(s): 24497472 Code(s): F41.9 - ANXIETY DISORDER, UNSPECIFIED Status: Acute Priority: Medium Current Visit: Yes (4) Confusion SNOMED Code(s): 677681462 Code(s): R41.0 - DISORIENTATION, UNSPECIFIED Status: Acute Current Visit : Yes Annotation/Comment:: -Not taking medications as prescribed -Will have nursing give medications according to most recent Discharge Summary from [facility] admission - Problem List Review Problem List Initiated/Reviewed/Updated: Yes - My Orders Last 24 Hours: My Active Orders 09/27/19 18:45 EKG Documentation Completion [RC] STAT INFLUENZA A+B AG SCREEN [RM] Stat Sodium Chloride 0.9% [Saline Flush] 10 ml FLUSH ASDIRECTED PRN Saline Lock Insert [OM.PC] Stat 09/27/19 18:46 Chest 2V [CR] Stat - Assessment/Plan Last 24 Hours: My Active Orders 09/27/19 18:45 EKG Documentation Completion [RC] STAT INFLUENZA A+B AG SCREEN [RM] Stat Sodium Chloride 0.9% [Saline Flush] 10 ml FLUSH ASDIRECTED PRN Saline Lock Insert [OM.PC] Stat 09/27/19 18:46 Chest 2V [CR] Stat Plan: Please use this ER Note as the Admission H&P
[2019-09-27 19:30] LABS: ANION GAP 13.1 mmol/L (10-20); CHLORIDE,CL 107 mmol/L (98-107); SODIUM,NA 144 mmol/L (136-145)
[2019-09-27] MEDS ORDERED: Sodium Chloride 0.9% 1,000 ML IV ONE (19:36)
--- NOTE | 2019-09-27 20:04 | CT ---
[id number] CT/CT Head WO IV EXAM: NONCONTRAST HEAD CT INDICATION: Weakness, confusion and 3 fall today. COMPARISON: None. DISCUSSION: The ventricles and sulci are normal in size and configuration. The chester and white matter are normal in attenuation. No mass effect or midline shift. No acute hemorrhage or extra-axial fluid collection. No acute territorial infarct is identified. A limited look at the orbits and paranasal sinuses is unremarkable. IMPRESSION: 1. Negative exam. Christophe Alexander MD 09/27/192002 Thank you for allowing us to participate in the care of your patient.
[2019-09-27 20:12] LABS: BUPRENORPHINE,URINE NEGATIVE (NEGATIVE); MARIJUANA,URINE NEGATIVE (NEGATIVE); METHYLENEDIOXYMETHAMP,UR NEGATIVE (NEGATIVE)
[2019-09-27 20:13] LABS: PHENCYCLIDINE,URINE NEGATIVE (NEGATIVE)
[2019-09-27] MEDS ORDERED: Acetaminophen 325 MG Tab PO PRN (21:43)
[2019-09-27] MEDS ORDERED: NICOTINE POLACRILEX PO PRN (22:56)
[2019-09-27] MEDS ORDERED: Cholecalciferol (Vitamin D3) 25 MCG Tab PO SCH ×2 (23:00→23:45)
[2019-09-27] MEDS ORDERED: ALBUTEROL INH PRN (23:20)
[2019-09-27] MEDS ORDERED: Ondansetron 4 MG Tab.DIS PO PRN (23:30)
[2019-09-28] MEDS ORDERED: ASCORBIC ACID 500 MG PO SCH (08:00)
[2019-09-28] MEDS ORDERED: Omeprazole 20 MG Cap.CR PO SCH (08:00)
[2019-09-28] MEDS ORDERED: ATOMOXETINE HCL 100 MG PO SCH (08:00)
[2019-09-28] MEDS ORDERED: TIOTROPIUM 18 MCG INH SCH (08:00)
[2019-09-28] MEDS ORDERED: LINACLOTIDE 290 MCG PO SCH (08:00)
[2019-09-28] MEDS ORDERED: QUETIAPINE 150 MG PO SCH (09:00)
[2019-09-28] MEDS ORDERED: ASCORBIC ACID 1000 MG PO SCH (09:09)
[2019-09-28] MEDS: CLONAZEPAM 1 MG PO SCH ×2 (09:28→12:39)
[2019-09-28] MEDS: Vitamin B Complex [Vitamin B Complex] PO SCH (09:28)
[2019-09-28] MEDS: BUSPIRONE 15 MG PO SCH ×2 (09:28→12:39)
[2019-09-28] MEDS: Pramipexole 0.125 MG Tab PO SCH ×3 (09:29→20:07)
[2019-09-28] MEDS: DULOXETINE 60 MG PO SCH (09:29)
[2019-09-28] MEDS: Divalproex Sodium 500 MG Tab.ER PO SCH (09:29)
[2019-09-28] MEDS: FLUTICASONE PROPIONATE NASBOTH SCH ×2 (09:30→20:09)
--- NOTE | 2019-09-28 10:51 | CR ---
[id number] RAD/RAD Chest PA And Lateral EXAM: FRONTAL AND LATERAL CHEST INDICATION: WEAKNESS, CONFUSION, FALLS X 3 TODAY. COMPARISON: None. DISCUSSION: Patchy airspace opacities in the right lower lobe suspicious for pneumonia. A 72 x 42 mm rounded right perihilar opacity could represent the sequela of a focal pneumonia or malignancy. If the patient has signs and symptoms of pneumonia, a 4-6 week follow-up exam after appropriate treatment would be useful. Otherwise, chest CT with contrast is suggested to further evaluate for malignancy. Mild hyperinflation suggests underlying chronic obstructive pulmonary disease. Normal heart size. IMPRESSION: 1. Focal rounded pneumonia versus right hilar mass, see discussion. 2. Mild right lower lobe infiltrates. Christophe Alexander MD 09/28/19 [id number] Thank you for allowing us to participate in the care of your patient.
[2019-09-28] MEDS ORDERED: Nicotine 21 MG/24 Hr Patch TRDERM SCH (11:45)
[2019-09-28] MEDS: Omeprazole 20 MG Cap.CR PO SCH (12:39)
[2019-09-28] MEDS ORDERED: BREO ELLIPTA INH SCH (16:00)
--- NOTE | 2019-09-28 16:58 | PCM.PN ---
- General Info Date of Service: 09/28/19 Subjective Update: 64 yo female admitted to observation due to concerns about discharging her home from the ER after she presented following multiple falls in the time since she was discharged home from [place]. She had been admitted there for aspiration pneumonia, initially requiring intubation. She was hospitalized 08/14-09/09 and then transferred to inpatient psych from where she was discharged on 09/21. Since discharge, she had initially done well but then declined over the past few days , not eating well and having multiple falls. She states she is feeling well this morning. She is just concerned about her leg weakness and is hoping to get back home as soon as possible. She has not had any fever or cough. No vomiting or diarrhea. She states her appetite is good. - Review of Systems General: Reports: No Symptoms HEENT: Reports: No Symptoms Pulmonary: Reports: No Symptoms Cardiovascular: Reports: No Symptoms Gastrointestinal: Reports: No Symptoms Genitourinary: Reports: No Symptoms Musculoskeletal: Reports: No Symptoms Skin: Reports: No Symptoms Neurological: Reports: No Symptoms - Patient Data Vitals - Most Recent: Last Vital Signs Temp 36.8 C 09/28/19 14:00 Pulse 88 09/28/19 14:00 Resp 20 09/28/19 10:00 BP 108/55 L 09/28/19 14:00 Pulse Ox 98 09/28/19 14:00 Weight - Most Recent: 58.06 kg I&O - Last 24 Hours: Intake & Output 09/28/19 09/28/19 09/28/19 06:59 14:59 22:59 Intake Total 660 Balance 660 Lab Results Last 24 Hours: Laboratory Results - last 24 hr 09/27/19 09/27/19 09/27/19 Range/Units 18:58 18:58 19:55 WBC 4.8 (4.0-10.0) x10^3/uL RBC 3.50 L (4.00-5.50) x10^6/uL Hgb 11.3 L (12.0-16.0) g/dL Hct 34.4 (33.0-47.0) % MCV 98.3 H D (78.0-93.0) fL MCH 32.3 H (26.0-32.0) pg MCHC 32.8 (32.0-36.0) g/dL RDW Coeff of Gordon 14.9 (10.0-15.0) % Plt Count 137 (130-400) x10^3/uL Neut % (Auto) 56.6 (50.0-80.0) % Lymph % (Auto) 31.7 (25.0-50.0) % [place] % (Auto) 9.0 (2.0-11.0) % Eos % (Auto) 2.1 (0.0-4.0) % Baso % (Auto) 0.6 (0.2-1.2) % Sodium 144 (136-145) mmol/L Potassium 4.1 (3.5-5.1) mmol/L Chloride 107 (98-107) mmol/L Carbon Dioxide 28 D (21-32) mmol/L Anion Gap 13.1 (10-20) mmol/L BUN 38 H (7-18) mg/dL Creatinine 1.2 H (0.55-1.02) mg/dL Est Cr Clr Drug Dosing TNP Estimated GFR (MDRD) 45 Glucose 103 (74-106) mg/dL Calcium 8.8 (8.5-10.1) mg/dL Corrected Calcium 9.28 (8.5-10.1) mg/dL Total Bilirubin 0.4 (0.2-1.0) mg/dL AST 12 L (15-37) U/L ALT 17 (14-59) U/L Alkaline Phosphatase 73 (46-116) U/L Creatine Kinase 46 (26-192) U/L Troponin I < 0.017 (<=0.056) ng/mL Total Protein 7.1 (6.4-8.2) g/dL Albumin 3.4 (3.4-5.0) g/dL Globulin 3.7 Albumin/Globulin Ratio 0.92 Urine Color Dark yellow H (YELLOW) Urine Appearance Slightly cloudy H (CLEAR) Urine pH 6.0 (5.0-8.0) Ur Specific [place] 1.020 Urine Protein Negative (NEGATIVE) mg/dL Urine Glucose (UA) Negative (NEGATIVE) mg/dL Urine Ketones Negative (NEGATIVE) mg/dL Urine Occult Blood Negative (NEGATIVE) Urine Nitrite Negative (NEGATIVE) Urine Bilirubin Negative (NEGATIVE) Urine Urobilinogen 0.2 (0.2) EU/dL Ur Leukocyte Esterase Trace H (NEGATIVE) Urine RBC 0-5 (NOT SEEN) /HPF Urine WBC 0-5 (NOT SEEN) /HPF Ur Squamous Epith Cells Rare (NEGATIVE) /HPF Amorphous Sediment Few Urine Bacteria Few H (NEGATIVE) /HPF Urine Mucus Few H (NEGATIVE) /LPF Urine Opiates Screen (NEGATIVE) Ur Buprenorphine Scrn (NEGATIVE) Ur Oxycodone Screen (NEGATIVE) Ur EDDP (Meth Metab) (NEGATIVE) Urine Methadone Screen (NEGATIVE) Ur Barbituates Screen (NEGATIVE) Ur Tricyclics Screen (NEGATIVE) Ur Phencyclidine Scrn (NEGATIVE) Ur Amphetamines Screen (NEGATIVE) U Methamphetamines Scrn (NEGATIVE) Urine MDMA Screen (NEGATIVE) U Benzodiazepines Scrn (NEGATIVE) Urine Cocaine Screen (NEGATIVE) U Marijuana (THC) Screen (NEGATIVE) Ethyl Alcohol < 3 (0-3) mg/dL 09/27/19 Range/Units 19:55 WBC (4.0-10.0) x10^3/uL RBC (4.00-5.50) x10^6/uL Hgb (12.0-16.0) g/dL Hct (33.0-47.0) % MCV (78.0-93.0) fL MCH (26.0-32.0) pg MCHC (32.0-36.0) g/dL RDW Coeff of Gordon (10.0-15.0) % Plt Count (130-400) x10^3/uL Neut % (Auto) (50.0-80.0) % Lymph % (Auto) (25.0-50.0) % [place] % (Auto) (2.0-11.0) % Eos % (Auto) (0.0-4.0) % Baso % (Auto) (0.2-1.2) % Sodium (136-145) mmol/L Potassium (3.5-5.1) mmol/L Chloride (98-107) mmol/L Carbon Dioxide (21-32) mmol/L Anion Gap (10-20) mmol/L BUN (7-18) mg/dL Creatinine (0.55-1.02) mg/dL Est Cr Clr Drug Dosing Estimated GFR (MDRD) Glucose (74-106) mg/dL Calcium (8.5-10.1) mg/dL Corrected Calcium (8.5-10.1) mg/dL Total Bilirubin (0.2-1.0) mg/dL AST (15-37) U/L ALT (14-59) U/L Alkaline Phosphatase (46-116) U/L Creatine Kinase (26-192) U/L Troponin I (<=0.056) ng/mL Total Protein (6.4-8.2) g/dL Albumin (3.4-5.0) g/dL Globulin Albumin/Globulin Ratio Urine Color (YELLOW) Urine Appearance (CLEAR) Urine pH (5.0-8.0) Ur Specific [place] Urine Protein (NEGATIVE) mg/dL Urine Glucose (UA) (NEGATIVE) mg/dL Urine Ketones (NEGATIVE) mg/dL Urine Occult Blood (NEGATIVE) Urine Nitrite (NEGATIVE) Urine Bilirubin (NEGATIVE) Urine Urobilinogen (0.2) EU/dL Ur Leukocyte Esterase (NEGATIVE) Urine RBC (NOT SEEN) /HPF Urine WBC (NOT SEEN) /HPF Ur Squamous Epith Cells (NEGATIVE) /HPF Amorphous Sediment Urine Bacteria (NEGATIVE) /HPF Urine Mucus (NEGATIVE) /LPF Urine Opiates Screen Negative (NEGATIVE) Ur Buprenorphine Scrn Negative (NEGATIVE) Ur Oxycodone Screen Positive H (NEGATIVE) Ur EDDP (Meth Metab) Negative (NEGATIVE) Urine Methadone Screen Negative (NEGATIVE) Ur Barbituates Screen Negative (NEGATIVE) Ur Tricyclics Screen Negative (NEGATIVE) Ur Phencyclidine Scrn Negative (NEGATIVE) Ur Amphetamines Screen Negative (NEGATIVE) U Methamphetamines Scrn Negative (NEGATIVE) Urine MDMA Screen Negative (NEGATIVE) U Benzodiazepines Scrn Negative (NEGATIVE) Urine Cocaine Screen Negative (NEGATIVE) U Marijuana (THC) Screen Negative (NEGATIVE) Ethyl Alcohol (0-3) mg/dL Med Orders - Current: Current Medications Acetaminophen (Tylenol) 650 mg PO Q4H PRN PRN Reason: Pain (Mild 1-3)/fever Last Admin: 09/28/19 05:10 Dose: 650 mg Albuterol (Ventolin Hfa) 0 gm INH Q4H PRN PRN Reason: Shortness of Breath Cholecalciferol (Vitamin D3) 1,250 mcg PO Q7D [facility] Last Admin: 09/27/19 23:57 Dose: Not Given Divalproex Sodium (Depakote Er) 500 mg PO DAILY [facility] Last Admin: 09/28/19 09:29 Dose: 500 mg Divalproex Sodium (Depakote Er) 1,000 mg PO BEDTIME [facility] Nicotine (Habitrol) 21 mg TRDERM DAILY [facility] Last Admin: 09/28/19 11:49 Dose: 21 mg Duloxetine [Cymbalta (] 60mg X 2 = 120mg) 0 mg PO DAILY [facility] Last Admin: 09/28/19 09:29 Dose: 120 mg Fluticasone (Propionate [Flonase]) 1 spray NASBOTH BID [facility] Last Admin: 09/28/19 09:30 Dose: Not Given Nicotine Polacrilex [Nicorette] 1 Lozenge 1 lozenge PO Q4HR PRN PRN Reason: smoking cessation Tiotropium [Spiriva (Handihaler] 18 Mcg) 0 mcg INH DAILY [facility] Last Admin: 09/28/19 09:33 Dose: Not Given Vitamin B Complex [ (Vitamin B Complex]) 1 each PO DAILY [facility] Last Admin: 09/28/19 09:28 Dose: 1 each Ascorbic Acid 1000mg ((Own Supply)) 0 each PO DAILY [facility] Quetiapine [Seroquel (] 150mg) 0 tab PO BID [facility] Clonazepam [Klonopin (] 1 Mg (Own Supply)) 1 mg PO TIDMEALS [facility] Complete Senior Tab 1 each PO DAILY@1800 [facility] [id number] 1 each PO DAILY@1800 [facility] Breo Ellipta 100/ (25mcg (Own Supply)) 2 puff INH DAILY [facility] Last Admin: 09/28/19 15:53 Dose: Not Given Omeprazole (Omeprazole) 20 mg PO BID@0800,1200 [facility] Last Admin: 09/28/19 12:39 Dose: 20 mg Ondansetron HCl (Zofran Odt) 4 mg PO TID PRN PRN Reason: Nausea Pramipexole Dihydrochloride (Mirapex) 0.125 mg PO TID [facility] Last Admin: 09/28/19 12:39 Dose: 0.125 mg Sodium Chloride (Saline Flush) 10 ml FLUSH ASDIRECTED PRN PRN Reason: Keep Vein Open Discontinued Medications Ascorbic Acid (Vitamin C) 500 mg PO DAILY [facility] Last Admin: 09/28/19 09:35 Dose: 500 mg Cholecalciferol (Vitamin D3) 1,250 mcg PO DAILY [facility] Last Admin: 09/27/19 23:43 Dose: Not Given Sodium Chloride (Normal Saline) 1,000 mls @ 999 mls/hr IV ONETIME ONE Stop: 09/27/19 20:36 Last Admin: 09/27/19 20:20 Dose: 999 mls/hr Atomoxetine Hcl [ (Strattera] 100 Mg) 0 mg PO DAILY [facility] Last Admin: 09/28/19 09:28 Dose: 100 mg Buspirone [Buspar] (15 Mg) 0 mg PO TID [facility] Last Admin: 09/28/19 12:39 Dose: 15 mg Clonazepam [Klonopin (] 1 Mg (Own Supply)) 1 mg PO TID [facility] Last Admin: 09/28/19 12:39 Dose: 1 mg Linaclotide [Linzess ] 290 Mcg (Own Supply) 0 mcg PO DAILY [facility] Last Admin: 09/28/19 10:44 Dose: Not Given Quetiapine [Seroquel (] 150mg) 0 tab PO DAILY [facility] Last Admin: 09/28/19 09:28 Dose: 150 tab Trazodone 100mg X 3 (= 300 Mg) 0 mg PO BEDTIME [facility] Buspirone [Buspar] (15 Mg) 0 mg PO TIDMEALS [facility] Omeprazole (Omeprazole) 20 mg PO BID [facility] Last Admin: 09/28/19 09:28 Dose: 20 mg - Exam General: Alert, Cooperative, No Acute Distress HEENT: Mucous Membr. Moist/[place] Neck: Supple, Trachea Midline, No Thyromegaly. No: Lymphadenopathy Lungs: Clear to Auscultation, Normal Respiratory Effort Cardiovascular: Regular Rate, Regular Rhythm, No Murmurs GI/Abdominal Exam: Normal Bowel Sounds, Soft, Non-Tender, No Organomegaly, No Distention, No Mass Extremities: Non-Tender, No Pedal Edema, Normal Capillary Refill Peripheral Pulses: 2+: Radial (L), Radial (R) Skin: Warm, Dry, Intact Neurological: No New Focal Deficit Sepsis Event Note - Evaluation Sepsis Screening Result: No Definite Risk - Focused Exam Vital Signs: Vital Signs Temp Pulse Resp BP Pulse Ox 09/28/19 14:00 36.8 C 88 108/55 L 98 09/28/19 10:00 37.3 C 82 20 132/76 98 Date Exam was Performed: 09/28/19 Time Exam was Performed: 16:53 - Problem List & Annotations (1) Weakness SNOMED Code(s): 28274893 Code(s): R53.1 - WEAKNESS Status: Acute Current Visit: Yes (2) Aspiration pneumonia SNOMED Code(s): 608433958 Code(s): J69.0 - PNEUMONITIS DUE TO INHALATION OF FOOD AND VOMIT Status: Acute Current Visit: No Qualifiers: Aspiration pneumonia type: unspecified Laterality: right Lung location: lower lobe of lung Qualified Code(s): J69.0 - Pneumonitis due to inhalation of food and vomit (3) Osteoarthritis SNOMED Code(s): 341762536 Code(s): M19.90 - UNSPECIFIED OSTEOARTHRITIS, UNSPECIFIED SITE Status: Chronic Current Visit: Yes Qualifiers: Osteoarthritis location: multiple joints Osteoarthritis type: primary Qualified Code(s): M15.0 - Primary generalized (osteo)arthritis (4) Anxiety SNOMED Code(s): 42462996 Code(s): F41.9 - ANXIETY DISORDER, UNSPECIFIED Status: Chronic Priority: Medium Current Visit: Yes (5) Depressive disorder SNOMED Code(s): 65349041 Code(s): F32.9 - MAJOR DEPRESSIVE DISORDER, SINGLE EPISODE, UNSPECIFIED Status: Chronic Current Visit: Yes - Problem List Review Problem List Initiated/Reviewed/Updated: Yes - My Orders Last 24 Hours: My Active Orders 09/28/19 08:22 Consult to Occupational Therapy [OT Evaluation and Treatment] [CONS] Routine PT Evaluation and Treatment [CONS] Routine 09/28/19 09:19 Pramipexole [Mirapex] 0.125 mg PO TID 09/28/19 09:30 Divalproex Sodium [Depakote ER] 500 mg PO DAILY 09/28/19 11:45 Nicotine [Habitrol] 21 mg TRDERM DAILY 09/28/19 16:00 Breo Ellipta 2 puff INH DAILY 09/28/19 18:00 Non-Formulary Medication [NF Drug] 1 each PO DAILY@1800 Non-Formulary Medication [NF Drug] 1 each PO DAILY@1800 09/28/19 20:00 Divalproex Sodium [Depakote ER] 1,000 mg PO BEDTIME - Assessment Assessment:: 64 yo female admitted for disposition planning due to inability to care for herself after her recent discharge resulting in recurrent falls at home. - Plan Plan:: #1 Generalized Weakness - PT and OT evaluated the patient and did not feel she met criteria for inpatient swing bed. - Therefore, she will be discharged tomorrow am to attend her psychiatric appointment. - When she returns, she will either be admitted to [facility] or will return home for 1 night and then get admitted to [facility] the following day. - The patient and her son are both in agreement with this plan. #2 Aspiration Pneumonia - CXR in the ER read as ongoing infiltrates in the RLL; however, patient is asymptomatic and has a normal WBC. Therefore, this is likely residual from her recent pneumonia and will need to be followed up on in 4-6 weeks. #3 Osteoarthritis #4 Anxiety #5 Depression - Home medications continued. Patient will remain on observation overnight and will be discharged tomorrow morning as above. Home medications continued. No indication for VTE prophylaxis. She is full code.
[2019-09-28] MEDS ORDERED: [UNRECOGNIZED DRUG - OTHER] PO SCH (18:00)
[2019-09-28] MEDS ORDERED: CLONAZEPAM 1 MG PO SCH (18:00)
[2019-09-28] MEDS ORDERED: BUSPIRONE 15 MG PO SCH (18:00)
[2019-09-28] MEDS ORDERED: COMPLETE SENIOR PO SCH (18:00)
[2019-09-28] MEDS ORDERED: TRAZODONE 100 MG PO SCH (20:00)
[2019-09-28] MEDS ORDERED: DIVALPROEX SODIUM 500 MG PO SCH (20:00)
[2019-09-28] MEDS: QUETIAPINE 150 MG PO SCH (20:07)
[2019-09-29] MEDS: Vitamin B Complex [Vitamin B Complex] PO SCH (04:53)
[2019-09-29] MEDS: DULOXETINE 60 MG PO SCH (04:54)
[2019-09-29] MEDS: Omeprazole 20 MG Cap.CR PO SCH (04:54)
[2019-09-29] MEDS: QUETIAPINE 150 MG PO SCH (04:55)
[2019-09-29] MEDS: Pramipexole 0.125 MG Tab PO SCH (04:55)
[2019-09-29] MEDS: Divalproex Sodium 500 MG Tab.ER PO SCH (04:55)
[2019-09-29 05:32] VITALS: BP 115/55; PULSE 71
--- NOTE | 2019-09-29 05:51 | PCM.DCSUM1 ---
Discharge Summary - Hospital Course Free Text/Narrative:: [id number]: I certify that the visit today meets the criteria for a face to face as required for home health certification. I saw the patient today on 09/29/2019. Her plan of care will be followed by her PCP, Dr. Delmy Burrell. She needs home health for strengthening due to generalized weakness following a fall for aspiration pneumonia. She also needs home health for med monitoring due to her underlying mental health struggles and history of nonadherence to her medication regimen. She is homebound as she needs the assistance of another person as well as a gait aid (walker) to leave the home. She needs PT and OT for strengthening and alf for medication set up and medication monitoring. Brief History: Ms. Sheffield is a 64 yo female admitted for observation after presenting to the ER for inability to care for herself at home resulting in frequent falls. - Discharge Data Discharge Date: 09/29/19 Discharge Disposition: Home, W Home Health Agency 06 Condition: Stable - Referral to Home Health Date of Face to Face Encounter: 09/29/19 Reason for Homebound Status: needs walker and another person to leave the home Primary Care Physician: Delmy Burrell DO Skilled Need: PT, OT, SN - Discharge Diagnosis/Problem(s) (1) Weakness SNOMED Code(s): 34285605 ICD Code: R53.1 - WEAKNESS Status: Acute Current Visit: Yes (2) Aspiration pneumonia SNOMED Code(s): 034021004 ICD Code: J69.0 - PNEUMONITIS DUE TO INHALATION OF FOOD AND VOMIT Status: Acute Current Visit: No Qualifiers: Aspiration pneumonia type: unspecified Laterality: right Lung location: lower lobe of lung Qualified Code(s): J69.0 - Pneumonitis due to inhalation of food and vomit (3) Osteoarthritis SNOMED Code(s): 386056943 ICD Code: M19.90 - UNSPECIFIED OSTEOARTHRITIS, UNSPECIFIED SITE Status: Chronic Current Visit: Yes Qualifiers: Osteoarthritis location: multiple joints Osteoarthritis type: primary Qualified Code(s): M15.0 - Primary generalized (osteo)arthritis (4) Anxiety SNOMED Code(s): 08307668 ICD Code: F41.9 - ANXIETY DISORDER, UNSPECIFIED Status: Chronic Priority : Medium Current Visit: Yes (5) Depressive disorder SNOMED Code(s): 55110502 ICD Code: F32.9 - MAJOR DEPRESSIVE DISORDER, SINGLE EPISODE, UNSPECIFIED Status: Chronic Current Visit: Yes - Patient Summary/Data Operative Procedure(s) Performed: none Complications: none Consults: Consultations 09/27/19 21:43 Consult to Case Management/Process Supervisor [CONS] Routine 09/28/19 08:22 Consult to Occupational Therapy [OT Evaluation and Treatment] [CONS] Routine PT Evaluation and Treatment [CONS] Routine Labs Pending at D/C: none Recommended Follow-up Testing/Procedures: none Planned Operative Procedure(s) after DC: none Hospital Course: Patient was admitted to observation and her home medications were continued. She was evaluated by PT and OT and it was felt she did not qualify for a swing bed stay. Therefore, case management worked with the patient and her son. She will be discharged to attend her mental health appointment this morning. Then she will either be admitted directly to [facility] this afternoon or she will return home under the care of her family for 1 night and then be admitted to [facility] tomorrow. Her observation stay was otherwise uncomplicated. Her CXR in the ER did question possible RLL infiltrates persisting. As her WBC were normal and she had no symptoms, she was not treated with further antibiotics. She will need to follow-up with her PCP with an x-ray in 3-4 weeks. - Patient Instructions Diet: Usual Diet as Tolerated Activity: As Tolerated - Discharge Plan *PRESCRIPTION DRUG MONITORING PROGRAM REVIEWED*: Not Applicable *COPY OF PRESCRIPTION DRUG MONITORING REPORT IN PATIENT KEARA: Not Applicable Home Medications: Home Meds Tiotropium [Spiriva Handihaler] 18 mcg INH DAILY 09/15/14 [History] ClonazePAM [KlonoPIN] 1 mg PO TID 10/12/16 [History] Omeprazole 20 mg PO BIDAC 10/12/16 [History] Albuterol [Ventolin HFA] 1 puff INH Q4H PRN 03/25/17 [History] Fluticasone Propionate [Flonase] 1 spray NASBOTH BID 03/25/17 [History] DULoxetine [Cymbalta] 120 mg PO DAILY 11/02/18 [History] Vitamin B Complex 1 cap PO DAILY 11/02/18 [History] Ondansetron [Zofran] 4 mg PO TID PRN 06/23/19 [History] Ascorbic Acid [Vitamin C] 500 mg PO DAILY 08/13/19 [History] Nicotine Polacrilex [Nicorette] 1 lozenge PO Q4HR PRN 08/13/19 [History] oxyCODONE HCl/Acetaminophen [Percocet 5-325 mg Tablet] 1 - 2 tab PO DAILY PRN [History] Divalproex Sodium [Divalproex Sodium ER] 1,000 mg PO BEDTIME 09/28/19 [History] Divalproex Sodium [Divalproex Sodium ER] 500 mg PO DAILY 09/28/19 [History] Ergocalciferol (Vitamin D2) [Vitamin D2] 50,000 unit PO Q7D 09/28/19 [History] Fluticasone/Vilanterol [Breo Ellipta 100-25 MCG Inhalation Kit] 2 puff PO DAILY 09/28/19 [History] Pramipexole Di-HCl [Pramipexole Dihydrochloride] 0.125 mg PO TID 09/28/19 [ History] QUEtiapine Fumarate [Seroquel] 150 mg PO BID 09/28/19 [History] Breo Ellipta 2 puff INH DAILY 09/29/19 [Rx] Cholecalciferol (Vitamin D3) [Vitamin D3] 1,250 mcg PO Q7D tablet 09/29/19 [Rx] Pramipexole [Mirapex] 0.125 mg PO TID tablet 09/29/19 [Rx] Referrals: Delmy Burrell DO [Primary Care Provider] - - Discharge Summary/Plan Comment DC Time >30 min.: No - General Info Date of Service: 09/29/19 Subjective Update: Feeling well this morning and is ready for discharge. - Review of Systems General: Reports: No Symptoms HEENT: Reports: No Symptoms Pulmonary: Reports: No Symptoms Cardiovascular: Reports: No Symptoms Gastrointestinal: Reports: No Symptoms Genitourinary: Reports: No Symptoms Musculoskeletal: Reports: No Symptoms Skin: Reports: No Symptoms Neurological: Reports: No Symptoms - Patient Data Vitals - Most Recent: Last Vital Signs Temp 37.0 C 09/29/19 05:32 Pulse 71 09/29/19 05:32 Resp 18 09/29/19 05:32 BP 115/55 L 09/29/19 05:32 Pulse Ox 98 09/29/19 05:32 Weight - Most Recent: 58.06 kg I&O - Last 24 hours: Intake & Output 09/28/19 09/28/19 09/29/19 14:59 22:59 06:59 Intake Total 660 180 400 Balance 660 180 400 Med Orders - Current: Current Medications Acetaminophen (Tylenol) 650 mg PO Q4H PRN PRN Reason: Pain (Mild 1-3)/fever Last Admin: 09/28/19 05:10 Dose: 650 mg Albuterol (Ventolin Hfa) 0 gm INH Q4H PRN PRN Reason: Shortness of Breath Cholecalciferol (Vitamin D3) 1,250 mcg PO Q7D [facility] Last Admin: 09/27/19 23:57 Dose: Not Given Divalproex Sodium (Depakote Er) 500 mg PO DAILY [facility] Last Admin: 09/29/19 04:55 Dose: 500 mg Divalproex Sodium (Depakote Er) 1,000 mg PO BEDTIME [facility] Last Admin: 09/28/19 20:07 Dose: 1,000 mg Nicotine (Habitrol) 21 mg TRDERM DAILY [facility] Last Admin: 09/28/19 11:49 Dose: 21 mg Duloxetine [Cymbalta (] 60mg X 2 = 120mg) 0 mg PO DAILY [facility] Last Admin: 09/29/19 04:54 Dose: 120 mg Fluticasone (Propionate [Flonase]) 1 spray NASBOTH BID [facility] Last Admin: 09/28/19 20:09 Dose: Not Given Nicotine Polacrilex [Nicorette] 1 Lozenge 1 lozenge PO Q4HR PRN PRN Reason: smoking cessation Tiotropium [Spiriva (Handihaler] 18 Mcg) 0 mcg INH DAILY [facility] Last Admin: 09/28/19 09:33 Dose: Not Given Vitamin B Complex [ (Vitamin B Complex]) 1 each PO DAILY [facility] Last Admin: 09/29/19 04:53 Dose: 1 each Ascorbic Acid 1000mg ((Own Supply)) 0 each PO DAILY [facility] Last Admin: 09/29/19 04:53 Dose: 1 each Quetiapine [Seroquel (] 150mg) 0 tab PO BID [facility] Last Admin: 09/29/19 04:55 Dose: 0.5 tab Clonazepam [Klonopin (] 1 Mg (Own Supply)) 1 mg PO TIDMEALS [facility] Last Admin: 09/28/19 17:37 Dose: 1 mg Complete Senior Tab 1 each PO DAILY@1800 [facility] Last Admin: 09/28/19 17:38 Dose: 1 each [id number] 1 each PO DAILY@1800 [facility] Last Admin: 09/28/19 17:38 Dose: 1 each Breo Ellipta 100/ (25mcg (Own Supply)) 2 puff INH DAILY [facility] Last Admin: 09/28/19 15:53 Dose: Not Given Omeprazole (Omeprazole) 20 mg PO BID@0800,1200 [facility] Last Admin: 09/29/19 04:54 Dose: 20 mg Ondansetron HCl (Zofran Odt) 4 mg PO TID PRN PRN Reason: Nausea Pramipexole Dihydrochloride (Mirapex) 0.125 mg PO TID [facility] Last Admin: 09/29/19 04:55 Dose: 0.125 mg Sodium Chloride (Saline Flush) 10 ml FLUSH ASDIRECTED PRN PRN Reason: Keep Vein Open Discontinued Medications Ascorbic Acid (Vitamin C) 500 mg PO DAILY [facility] Last Admin: 09/28/19 09:35 Dose: 500 mg Cholecalciferol (Vitamin D3) 1,250 mcg PO DAILY [facility] Last Admin: 09/27/19 23:43 Dose: Not Given Sodium Chloride (Normal Saline) 1,000 mls @ 999 mls/hr IV ONETIME ONE Stop: 09/27/19 20:36 Last Admin: 09/27/19 20:20 Dose: 999 mls/hr Atomoxetine Hcl [ (Strattera] 100 Mg) 0 mg PO DAILY [facility] Last Admin: 09/28/19 09:28 Dose: 100 mg Buspirone [Buspar] (15 Mg) 0 mg PO TID [facility] Last Admin: 09/28/19 12:39 Dose: 15 mg Clonazepam [Klonopin (] 1 Mg (Own Supply)) 1 mg PO TID [facility] Last Admin: 09/28/19 12:39 Dose: 1 mg Linaclotide [Linzess ] 290 Mcg (Own Supply) 0 mcg PO DAILY [facility] Last Admin: 09/28/19 10:44 Dose: Not Given Quetiapine [Seroquel (] 150mg) 0 tab PO DAILY [facility] Last Admin: 09/28/19 09:28 Dose: 150 tab Trazodone 100mg X 3 (= 300 Mg) 0 mg PO BEDTIME [facility] Buspirone [Buspar] (15 Mg) 0 mg PO TIDMEALS [facility] Omeprazole (Omeprazole) 20 mg PO BID [facility] Last Admin: 09/28/19 09:28 Dose: 20 mg - Exam General: Reports: Alert, Cooperative, No Acute Distress HEENT: Reports: Mucous Membr. Moist/[place] Neck: Reports: Supple, Trachea Midline, No Thyromegaly. Denies: Lymphadenopathy Lungs: Reports: Clear to Auscultation, Normal Respiratory Effort Cardiovascular: Reports: Regular Rate, Regular Rhythm, No Murmurs GI/Abdominal Exam: Normal Bowel Sounds, Soft, Non-Tender, No Organomegaly, No Distention, No Mass Extremities: Non-Tender, No Pedal Edema, Normal Capillary Refill Skin: Reports: Warm, Dry, Intact
== END 2019-09-29 06:00 | disposition home health service (06) ==
LOC: VM.ED 17:23 → VM.MS 21:33
PROVIDERS: ADMIT Family Medicine; ATTEND Internal Medicine
DX: R53.1 Weakness (principal); J69.0 Pneumonitis due to inhalation of food and vomit; F33.2 Major depressive disorder, recurrent severe without psychotic features; F41.9 Anxiety disorder, unspecified; M15.0 Primary generalized (osteo)arthritis; K21.9 Gastro-esophageal reflux disease without esophagitis; W19.XXXA Unspecified fall, initial encounter; Y92.009 Unspecified place in unspecified non-institutional (private) residence as the place of occurrence of the external cause; Z79.899 Other long term (current) drug therapy
CPT/HCPCS: 36415; 70450; 71046; 80053; 80305-QW; 80307; 81001; 82550; 84484; 85025; 93005; 96360; 97161-GP; 97165-GO; 97530-GP; 97535-GO; 99285-25; A9270-GY; J7030

== ENCOUNTER 2020-03-17 10:30 | Emergency (ER) | payer MEDICAID ==
[2020-03-17] MEDS ORDERED: LORazepam 2 MG/ML SDV IM ONE (10:48)
[2020-03-17 11:07] VITALS: BP 98/62; PULSE 98
--- NOTE | 2020-03-17 11:19 | EDM.PDOC ---
ED HPI GENERAL MEDICAL PROBLEM - General Chief Complaint: General Stated Complaint: SOB/RUNNY NOSE Time Seen by Provider: 03/17/20 10:40 Source of Information: Reports: Patient History Limitations: Reports: No Limitations - History of Present Illness INITIAL COMMENTS - FREE TEXT/NARRATIVE: Patient comes into the emergency department with complaints of cough, runny nose, and anxiety. Patient has a longstanding history of mood disorder and anxiety and states that she often becomes worked up and anxious most the time she is able to take her Lorazepam relieve the symptoms. However today she states that the symptoms were sudden and abrupt and she was not able to control herself and she presented to the emergency department prior to taking her medication. Patient she is also had cough and runny nose for approximately 1 week. She does not feel that it is getting any worse but states that today due to her increased anxiety she has increased amount of shortness of breath she is unable to catch her breath. She states that she is needing to breathe very fast to catch her breath. Patient also states that she is been having difficulty sleeping she was on trazodone they slowly been transitioning her over to Seroquel. She is only slept 8 hours in the last 4 nights last night they had increased her from 300 mg daily to 400 mg daily of Seroquel and she states that she slept very well and felt well this a.m. Patient denies any active chest pain, dizziness, blurred vision, GI upset, genitourinary concerns, or peripheral edema. Patient states she is been relatively healthy prior to this and has not had any COVID-19 symptoms or had any recent testing completed. Onset: Sudden Quality: Reports: Other Severity: Moderate Improves with: Reports: None Worsens with: Reports: None Associated Symptoms: Reports: No Other Symptoms - Related Data Allergies Allergy/AdvReac Type Severity Reaction Status Date / Time No Known Allergies Allergy Verified 03/17/20 11:02 Home Meds: Home Meds Tiotropium [Spiriva Handihaler] 18 mcg INH DAILY 09/15/14 [History] ClonazePAM [KlonoPIN] 1 mg PO BEDTIME 10/12/16 [History] Omeprazole 20 mg PO BIDAC 10/12/16 [History] Albuterol [Ventolin HFA] 1 puff INH Q4H PRN 03/25/17 [History] Fluticasone Propionate [Flonase] 1 spray NASBOTH BID 03/25/17 [History] DULoxetine [Cymbalta] 120 mg PO DAILY 11/02/18 [History] Vitamin B Complex 1 cap PO DAILY 11/02/18 [History] oxyCODONE HCl/Acetaminophen [Percocet 5-325 mg Tablet] 1 tab PO BID PRN 08/13/19 [History] Ergocalciferol (Vitamin D2) [Vitamin D2] 50,000 unit PO Q7D 09/28/19 [History] QUEtiapine Fumarate [Seroquel] 300 mg PO BEDTIME 09/28/19 [History] Pramipexole [Mirapex] 0.125 mg PO TID tablet 09/29/19 [Rx] Budesonide/Formoterol Fumarate [Symbicort 80-4.5 MCG] 2 puff INH BID 02/23/20 [History] Docosanol [Abreva 10%] 1 applic TOP 5XDAY 02/23/20 [History] Docusate Sodium [Colace] 100 mg PO DAILY 02/23/20 [History] Gabapentin [Neurontin] 400 mg PO QID 02/23/20 [History] LORazepam [Ativan] 1 mg PO DAILY PRN 02/23/20 [History] Lidocaine [Lidoderm] 1 each TP DAILY 02/23/20 [History] Linaclotide [Linzess] 290 mcg PO DAILY PRN 02/23/20 [History] Multivitamin 1 each PO BEDTIME 02/23/20 [History] Propylene Glycol/PEG 400/Pf [Systane 0.3-0.4% Eye Drop] 1 drop EYEBOTH Q4HR PRN 02/23/20 [History] Psyllium [Metamucil] 1 gm PO DAILY 02/23/20 [History] Saliva Stimulant Comb. No.2 [Biotene Oralbalance] 1 spray PO ASDIRECTED PRN 02/23/20 [History] atoMOXetine [Strattera] 80 mg PO DAILY 02/23/20 [History] busPIRone [Buspar] 15 mg PO TID 02/23/20 [History] polyethylene glycoL 3350 [MiraLAX] 1 dose PO TID PRN 02/23/20 [History] traZODone HCl [Trazodone HCl] 50 mg PO BEDTIME 02/23/20 [History] valACYclovir HCl [valACYclovir] 2,000 mg PO DAILY 02/23/20 [History] Past Medical History HEENT History: Other HEENT History: HEARING LOSS. LEUKOPLAKIA OF ORAL CAVITY. 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 OSTEOPENIA. OSTEOMYELITIS. INJURY OF RIGHT KNEE MENISCUS. SACROILIAC JOINT DISEASE. DDD Neurological History: Reports: Other (See Below) Other Neuro History: ABSCESS IN EPIDURAL SPACE OF THORACIC SPINE. RLS Psychiatric History: Reports: ADHD, Anxiety, Depression, Eating Disorders Other Psychiatric History: HX ALCOHOL ABUSE - QUIT 2008 Endocrine/Metabolic History: Reports: Other (See Below) Other Endocrine/Metabolic History: HYPOVITAMINOSIS D Dermatologic History: Reports: Other (See Below) Other Dermatologic History: LIPOMA - Infectious Disease History Infectious Disease History: Reports: C-Difficile Other Infectious Disease History: States she had c-diff a year ago and is not currently having any loose stools - Past Surgical History Head Surgeries/Procedures: Reports: None Female Surgical History: Reports: Breast Biopsy, Tubal Ligation, Other (See Below) Other Female Surgeries/Procedures: BREAST SURGERY - Neurological Surgical History: Reports: Laminectomy Other Musculoskeletal Surgeries/Procedures:: HARDWARE REMOVAL OF LEFT ELBOW - 2016. BACK SURGERY Social & Family History - Family History Family Medical History: Noncontributory - Tobacco Use Smoking Status *Q: Current Every Day Smoker Years of Tobacco use: 30 Packs/Tins Daily: 0.3 - Caffeine Use Caffeine Use: Reports: Coffee Other Caffeine Use: Drinks coffee every once in a while - Recreational Drug Use Recreational Drug Use: No ED ROS GENERAL - Review of Systems Review Of Systems: Comprehensive ROS is negative, except as noted in HPI. Constitutional: Reports: No Symptoms HEENT: Reports: No Symptoms Respiratory: Reports: Cough Cardiovascular: Reports: No Symptoms Endocrine: Reports: No Symptoms GI/Abdominal: Reports: No Symptoms : Reports: No Symptoms Musculoskeletal: Reports: No Symptoms Skin: Reports: No Symptoms Neurological: Reports: No Symptoms Psychiatric: Reports: Agitation, Anxiety Hematologic/Lymphatic: Reports: No Symptoms Immunologic: Reports: No Symptoms ED EXAM, GENERAL - Physical Exam Exam: See Below Exam Limited By: Uncooperative General Appearance: Anxious Eye Exam: Bilateral Eye: EOMI, PERRL Head: Atraumatic, Normocephalic Neck: Normal Inspection, Supple, Non-Tender, Full Range of Motion Respiratory/Chest: No Respiratory Distress, Lungs Clear, Normal Breath Sounds, No Accessory Muscle Use, Chest Non-Tender Cardiovascular: Normal Peripheral Pulses, Regular Rate, Rhythm, No Edema, No Rub GI/Abdominal: Normal Bowel Sounds, Soft, Non-Tender, No Abnormal Bruit, No Mass Back Exam: Normal Inspection, Full Range of Motion Extremities: Normal Inspection, Normal Range of Motion, Non-Tender, No Pedal Edema, Normal Capillary Refill Neurological: Alert, Oriented, Normal Gait Psychiatric: Anxious, Tearful Skin Exam: Warm, Dry, Intact, Normal Color Course - Vital Signs Last Recorded V/S: Last Vital Signs Temp 36.6 C 03/17/20 10:35 Pulse 98 03/17/20 10:35 Resp 28 H 03/17/20 10:35 BP 98/62 03/17/20 10:35 Pulse Ox 99 03/17/20 10:35 - Orders/Labs/Meds Labs: Laboratory Tests 03/17/20 03/17/20 03/17/20 Range/Units 10:44 11:00 11:30 WBC 5.6 (4.0-10.0) x10^3/uL RBC 4.64 (4.00-5.50) x10^6/uL Hgb 15.1 D (12.0-16.0) g/dL Hct 43.3 (33.0-47.0) % MCV 93.3 H D (78.0-93.0) fL MCH 32.5 H (26.0-32.0) pg MCHC 34.9 (32.0-36.0) g/dL RDW Coeff of Gordon 12.1 (10.0-15.0) % Plt Count 203 (130-400) x10^3/uL Neut % (Auto) 54.8 (50.0-80.0) % Lymph % (Auto) 36.6 (25.0-50.0) % [place] % (Auto) 5.9 (2.0-11.0) % Eos % (Auto) 2.0 (0.0-4.0) % Baso % (Auto) 0.7 (0.2-1.2) % Sodium (136-145) mmol/L Potassium (3.5-5.1) mmol/L Chloride (98-107) mmol/L Carbon Dioxide (21-32) mmol/L Anion Gap (10-20) mmol/L BUN (7-18) mg/dL Creatinine (0.55-1.02) mg/dL Est Cr Clr Drug Dosing mL/min Estimated GFR (MDRD) Glucose (74-106) mg/dL Calcium (8.5-10.1) mg/dL Corrected Calcium (8.5-10.1) mg/dL Magnesium (1.8-2.4) mg/dL Total Bilirubin (0.2-1.0) mg/dL AST (15-37) U/L ALT (14-59) U/L Alkaline Phosphatase (46-116) U/L Total Protein (6.4-8.2) g/dL Albumin (3.4-5.0) g/dL Globulin Albumin/Globulin Ratio Urine Opiates Screen Negative (NEGATIVE) Ur Buprenorphine Scrn Negative (NEGATIVE) Ur Oxycodone Screen Negative (NEGATIVE) Ur EDDP (Meth Metab) Negative (NEGATIVE) Urine Methadone Screen Negative (NEGATIVE) Ur Barbituates Screen Negative (NEGATIVE) Ur Tricyclics Screen Negative (NEGATIVE) Ur Phencyclidine Scrn Negative (NEGATIVE) Ur Amphetamines Screen Negative (NEGATIVE) U Methamphetamines Scrn Negative (NEGATIVE) Urine MDMA Screen Negative (NEGATIVE) U Benzodiazepines Scrn Negative (NEGATIVE) Urine Cocaine Screen Negative (NEGATIVE) U Marijuana (THC) Screen Negative (NEGATIVE) COVID-19 ([facility]) Negative (NEGATIVE) 03/17/20 Range/Units 11:30 WBC (4.0-10.0) x10^3/uL RBC (4.00-5.50) x10^6/uL Hgb (12.0-16.0) g/dL Hct (33.0-47.0) % MCV (78.0-93.0) fL MCH (26.0-32.0) pg MCHC (32.0-36.0) g/dL RDW Coeff of Gordon (10.0-15.0) % Plt Count (130-400) x10^3/uL Neut % (Auto) (50.0-80.0) % Lymph % (Auto) (25.0-50.0) % [place] % (Auto) (2.0-11.0) % Eos % (Auto) (0.0-4.0) % Baso % (Auto) (0.2-1.2) % Sodium 141 (136-145) mmol/L Potassium 4.5 (3.5-5.1) mmol/L Chloride 104 (98-107) mmol/L Carbon Dioxide 25 (21-32) mmol/L Anion Gap 16.5 (10-20) mmol/L BUN 19 H (7-18) mg/dL Creatinine 1.1 H (0.55-1.02) mg/dL Est Cr Clr Drug Dosing 46.15 mL/min Estimated GFR (MDRD) 50 Glucose 84 (74-106) mg/dL Calcium 9.3 (8.5-10.1) mg/dL Corrected Calcium 9.54 (8.5-10.1) mg/dL Magnesium 1.9 (1.8-2.4) mg/dL Total Bilirubin 0.3 (0.2-1.0) mg/dL AST 23 (15-37) U/L ALT 28 (14-59) U/L Alkaline Phosphatase 108 (46-116) U/L Total Protein 6.8 (6.4-8.2) g/dL Albumin 3.7 (3.4-5.0) g/dL Globulin 3.1 Albumin/Globulin Ratio 1.19 Urine Opiates Screen (NEGATIVE) Ur Buprenorphine Scrn (NEGATIVE) Ur Oxycodone Screen (NEGATIVE) Ur EDDP (Meth Metab) (NEGATIVE) Urine Methadone Screen (NEGATIVE) Ur Barbituates Screen (NEGATIVE) Ur Tricyclics Screen (NEGATIVE) Ur Phencyclidine Scrn (NEGATIVE) Ur Amphetamines Screen (NEGATIVE) U Methamphetamines Scrn (NEGATIVE) Urine MDMA Screen (NEGATIVE) U Benzodiazepines Scrn (NEGATIVE) Urine Cocaine Screen (NEGATIVE) U Marijuana (THC) Screen (NEGATIVE) COVID-19 ([facility]) (NEGATIVE) Meds: Medications Discontinued Medications Generic Name Dose Route Start Last Admin Trade Name Neris PRN Reason Stop Dose Admin Hydroxyzine HCl 50 mg 03/17/20 11:21 03/17/20 11:35 Vistaril IM 03/17/20 11:22 50 mg ONETIME ONE Administration Lorazepam 2 mg 03/17/20 10:48 03/17/20 10:55 Ativan IM 03/17/20 10:49 2 mg ONETIME ONE Administration - Re-Assessments/Exams Free Text/Narrative Re-Assessment/Exam: 03/17/20 12:10 pt is resting and talking calmly with support person in room. Patient states she is calm and is ready for discharge. She no longer feels worked up and is almost back to her baseline. AxO, no pain, ambulating without difficulty and vital signs stable. Departure - Departure Time of Disposition: 12:10 Disposition: Home, Self-Care 01 Condition: Good Clinical Impression: Anxiety attack - Discharge Information *PRESCRIPTION DRUG MONITORING PROGRAM REVIEWED*: Not Applicable *COPY OF PRESCRIPTION DRUG MONITORING REPORT IN PATIENT KEARA: Not Applicable Instructions: Panic Attack, [id number], Lorazepam injection, Supporting Someone With Anxiety, Living With Anxiety Referrals: Delmy Burrell, DO [Primary Care Provider] - Forms: ED Department Discharge Additional Instructions: 1. rest 2. increase your water intake 3. Continue all at home medications 4. Activity and diet as tolerated 5. Can take over the counter Tylenol for any pain or discomfort 6. Follow up with PCP if symptoms continue, return, or progress 7. Call with any questions or concerns Sepsis Event Note (ED) - Evaluation Sepsis Screening Result: No Definite Risk - Focused Exam Vital Signs: Vital Signs Temp Pulse Resp BP Pulse Ox 03/17/20 10:35 36.6 C 98 28 H 98/62 99 - Assessment/Plan Assessment:: 1. anxiety 2. cough Plan: 1. Labs completed in the ER. Results reviewed with the patient 2. covid-19 screening completed 3. Ativan 2mg IM given in ER due to severe anxiety 4. UA tox completed in ER 5. Hydroxyzine 50mg IM given in the ER due to severe anxiety 6. Patient and nursing staff was updated regarding the plan of care 7. Education provided the patient regarding activity, diet, rest, ov [id number] medication modalities, and follow-up care was provided 8. Patient and family are agreeable to the above plan of care 9. All questions and concerns were addressed with the patient and family prior to discharge
[2020-03-17] MEDS ORDERED: hydrOXYzine HCl 50 MG/ML SDV IM ONE (11:21)
[2020-03-17 11:43] LABS: BUPRENORPHINE,URINE NEGATIVE (NEGATIVE); MARIJUANA,URINE NEGATIVE (NEGATIVE); METHYLENEDIOXYMETHAMP,UR NEGATIVE (NEGATIVE); PHENCYCLIDINE,URINE NEGATIVE (NEGATIVE)
[2020-03-17 11:56] LABS: ANION GAP 16.5 mmol/L (10-20)
== END 2020-03-17 12:27 | disposition home or self-care (01) ==
LOC: VM.ED 10:30
DX: F41.9 Anxiety disorder, unspecified (principal); J44.9 Chronic obstructive pulmonary disease, unspecified; F32.9 Major depressive disorder, single episode, unspecified; F17.210 Nicotine dependence, cigarettes, uncomplicated; Z20.828 Contact with and (suspected) exposure to other viral communicable diseases; Z79.899 Other long term (current) drug therapy
CPT/HCPCS: 36415; 80053; 80305-QW; 83735; 85025; 96372; 99282; 99284-GF; J2060; J3410; U0002

== ENCOUNTER 2020-04-06 07:24 | Emergency (ER) | payer MEDICAID, OTHER ==
[2020-04-06 07:48] VITALS: BP 98/52; PULSE 72
[2020-04-06] MEDS: Ondansetron 4 MG Tab.DIS PO ONE (07:52)
--- NOTE | 2020-04-06 07:52 | EDM.PDOC ---
ED HPI GENERAL MEDICAL PROBLEM - General Chief Complaint: Gastrointestinal Problem Stated Complaint: nausea Time Seen by Provider: 04/06/20 07:40 Source of Information: Reports: Patient History Limitations: Reports: No Limitations - History of Present Illness INITIAL COMMENTS - FREE TEXT/NARRATIVE: She comes into the emergency department with complaints of nausea. Patient has a longstanding history of psychiatric disorder and often starts and stops her meds abruptly without the consultation of her psychiatrist. The patient states that she ended up stopping her medications approximately 1 to 1-1/2 weeks ago and started having some mood instability earlier this week and then started taking her medications again approximately 2 days ago. She started taking all of her medications at the same dose that she had left off with. She did not contact her psychiatrist prior to starting the medications. When she started the medications she began to feel nauseated and ended up throwing up 2 different times. The patient states that the nausea went away after that and has been able to manage her activities of daily living without any difficulties. The patient took her medication again yesterday for the second day in a row and had nausea afterwards. Patient took her medications this morning and again had the same nausea. She ended up calling her psychiatrist who suggested that she go to the walk-in clinic and obtain antinausea medication until her medications are more stable within her body. Patient states that she could not wait to make it to the walk-in clinic and presented to the emergency department. Patient denies any abdominal pain, genitourinary concerns, chest pain, dizziness, lightheadedness, blurred vision, or peripheral edema. Patient states she is been relatively healthy and has no mood concerns she states that the meds do help her substantially. Contact with her psychiatrist and does plan to meet with him later today for she does have an appointment. She states that she did not feel she can make it to her appointment without having antinausea medication. Patient denies any active COVID-19 symptoms or exposure to any COVID-19. Onset: Gradual Location: Reports: Other Quality: Reports: Other Severity: Mild Improves with: Reports: None Worsens with: Reports: None Associated Symptoms: Reports: Nausea/Vomiting - Related Data Allergies Allergy/AdvReac Type Severity Reaction Status Date / Time No Known Allergies Allergy Verified 03/17/20 11:02 Home Meds: Home Meds Tiotropium [Spiriva Handihaler] 18 mcg INH DAILY 09/15/14 [History] ClonazePAM [KlonoPIN] 1 mg PO BEDTIME 10/12/16 [History] Omeprazole 20 mg PO BIDAC 10/12/16 [History] Albuterol [Ventolin HFA] 1 puff INH Q4H PRN 03/25/17 [History] Fluticasone Propionate [Flonase] 1 spray NASBOTH BID 03/25/17 [History] DULoxetine [Cymbalta] 120 mg PO DAILY 11/02/18 [History] Vitamin B Complex 1 cap PO DAILY 11/02/18 [History] oxyCODONE HCl/Acetaminophen [Percocet 5-325 mg Tablet] 1 tab PO BID PRN 08/13/19 [History] Ergocalciferol (Vitamin D2) [Vitamin D2] 50,000 unit PO Q7D 09/28/19 [History] Pramipexole [Mirapex] 0.125 mg PO TID tablet 09/29/19 [Rx] Budesonide/Formoterol Fumarate [Symbicort 80-4.5 MCG] 2 puff INH BID 02/23/20 [History] Docosanol [Abreva 10%] 1 applic TOP 5XDAY 02/23/20 [History] Docusate Sodium [Colace] 100 mg PO DAILY 02/23/20 [History] LORazepam [Ativan] 1 mg PO DAILY PRN 02/23/20 [History] Lidocaine [Lidoderm] 1 each TP DAILY 02/23/20 [History] Linaclotide [Linzess] 290 mcg PO DAILY PRN 02/23/20 [History] Multivitamin 1 each PO BEDTIME 02/23/20 [History] Propylene Glycol/PEG 400/Pf [Systane 0.3-0.4% Eye Drop] 1 drop EYEBOTH Q4HR PRN 02/23/20 [History] Psyllium [Metamucil] 1 gm PO DAILY 02/23/20 [History] Saliva Stimulant Comb. No.2 [Biotene Oralbalance] 1 spray PO ASDIRECTED PRN 02/23/20 [History] atoMOXetine [Strattera] 80 mg PO DAILY 02/23/20 [History] polyethylene glycoL 3350 [MiraLAX] 1 dose PO TID PRN 02/23/20 [History] QUEtiapine Fumarate [Seroquel] 400 mg PO BEDTIME 03/17/20 [History] lamoTRIgine [Lamotrigine] 100 mg PO DAILY 03/17/20 [History] Ondansetron [Zofran ODT] 4 mg PO Q6H PRN #10 tab.dis 04/06/20 [Rx] Past Medical History HEENT History: Other HEENT History: HEARING LOSS. LEUKOPLAKIA OF ORAL CAVITY. 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 OSTEOPENIA. OSTEOMYELITIS. INJURY OF RIGHT KNEE MENISCUS. SACROILIAC JOINT DISEASE. DDD Neurological History: Reports: Other (See Below) Other Neuro History: ABSCESS IN EPIDURAL SPACE OF THORACIC SPINE. RLS Psychiatric History: Reports: ADHD, Anxiety, Depression, Eating Disorders Other Psychiatric History: HX ALCOHOL ABUSE - QUIT 2008 Endocrine/Metabolic History: Reports: Other (See Below) Other Endocrine/Metabolic History: HYPOVITAMINOSIS D Dermatologic History: Reports: Other (See Below) Other Dermatologic History: LIPOMA - Infectious Disease History Infectious Disease History: Reports: C-Difficile Other Infectious Disease History: States she had c-diff a year ago and is not currently having any loose stools - Past Surgical History Head Surgeries/Procedures: Reports: None Female Surgical History: Reports: Breast Biopsy, Tubal Ligation, Other (See Below) Other Female Surgeries/Procedures: BREAST SURGERY - Neurological Surgical History: Reports: Laminectomy Other Musculoskeletal Surgeries/Procedures:: HARDWARE REMOVAL OF LEFT ELBOW - 2017. BACK SURGERY Social & Family History - Family History Family Medical History: Noncontributory - Caffeine Use Caffeine Use: Reports: Coffee Other Caffeine Use: Drinks coffee every once in a while ED ROS GENERAL - Review of Systems Review Of Systems: Comprehensive ROS is negative, except as noted in HPI. Constitutional: Reports: No Symptoms HEENT: Reports: No Symptoms Respiratory: Reports: No Symptoms Cardiovascular: Reports: No Symptoms : Reports: No Symptoms Musculoskeletal: Reports: No Symptoms Skin: Reports: No Symptoms Neurological: Reports: No Symptoms Psychiatric: Reports: No Symptoms Hematologic/Lymphatic: Reports: No Symptoms Immunologic: Reports: No Symptoms ED EXAM, GENERAL - Physical Exam Exam: See Below Exam Limited By: No Limitations General Appearance: Alert, WD/WN, Anxious Eye Exam: Bilateral Eye: EOMI, PERRL Head: Atraumatic, Normocephalic Neck: Normal Inspection, Supple, Non-Tender, Full Range of Motion Respiratory/Chest: No Respiratory Distress, Lungs Clear, Normal Breath Sounds, No Accessory Muscle Use, Chest Non-Tender Cardiovascular: Normal Peripheral Pulses, Regular Rate, Rhythm, No Edema, No JVD, No Murmur GI/Abdominal: Normal Bowel Sounds, Soft, Non-Tender, No Distention, No Abnormal Bruit Back Exam: Normal Inspection, Full Range of Motion Extremities: Normal Inspection, Normal Range of Motion, Non-Tender, No Pedal Edema, Normal Capillary Refill Neurological: Alert, Oriented, CN II-XII Intact, Normal Gait Psychiatric: Anxious Skin Exam: Warm, Dry, Intact Course - Orders/Labs/Meds Meds: Medications Discontinued Medications Generic Name Dose Route Start Last Admin Trade Name Freq PRN Reason Stop Dose Admin Ondansetron HCl 4 mg 04/06/20 07:45 Zofran Odt PO 04/06/20 07:46 ONETIME ONE Departure - Departure Time of Disposition: 07:54 Disposition: Home, Self-Care 01 Condition: Good Clinical Impression: Nausea, Poor compliance with medication - Discharge Information *PRESCRIPTION DRUG MONITORING PROGRAM REVIEWED*: Not Applicable *COPY OF PRESCRIPTION DRUG MONITORING REPORT IN PATIENT KEARA: Not Applicable Prescriptions: Ondansetron [Zofran ODT] 4 mg PO Q6H PRN #10 tab.dis PRN Reason: Nausea Instructions: Nausea, Adult, [id number], Ondansetron oral dissolving tablet Additional Instructions: 1. rest 2. increase your water intake 3. Follow up with your psychiatrist today for further recommendation and medication adjustments 4. Take Zofran ODT as needed for nausea every 6 hours 5. Activity and diet as tolerated 6. Can take over the counter Tylenol for any pain or discomfort 7. Follow up with PCP if symptoms continue, return, or progress 8. Call with any questions or concerns - Assessment/Plan Assessment:: 1. nausea 2. poor medication compliance 3. anxiety 4. Chronic mood disorder Plan: 1. Zofran given in the ER to help with nausea 2. Patient is encourage to keep her appointment today with her psychiatrist to discuss appropriate titration of medications 3. Patient and nursing staff was updated regarding the plan of care 4. Education provided the patient regarding activity, diet, rest, [id number] medication modalities, and follow-up care was provided 5. Patient and family are agreeable to the above plan of care 6. All questions and concerns were addressed with the patient and family prior to discharge
== END 2020-04-06 08:00 | disposition home or self-care (01) ==
LOC: VM.ED 07:24
DX: F41.9 Anxiety disorder, unspecified (principal); R11.0 Nausea; F39 Unspecified mood [affective] disorder; J44.9 Chronic obstructive pulmonary disease, unspecified; F32.9 Major depressive disorder, single episode, unspecified; Z91.14 Patient's other noncompliance with medication regimen; Z79.899 Other long term (current) drug therapy
CPT/HCPCS: 99283; A9270; 99284

== ENCOUNTER 2020-09-16 08:17 | Emergency (ER) | payer MEDICAID ==
[2020-09-16] MEDS: diphenhydrAMINE 50 MG/ML SDV IM ONE (09:24)
[2020-09-16] MEDS: Ketorolac 30 MG/ML SDV IM ONE (09:24)
--- NOTE | 2020-09-16 09:35 | EDM.PDOC ---
ED HPI GENERAL MEDICAL PROBLEM - General Chief Complaint: Headache Stated Complaint: headache Time Seen by Provider: 09/16/20 08:40 Source of Information: Reports: Patient History Limitations: Reports: No Limitations - History of Present Illness INITIAL COMMENTS - FREE TEXT/NARRATIVE: Patient comes in the emergency department with complaint of headache and body aches. Patient states that she has had the body aches and felt fatigued for approximately 1 week and has been doctoring with her psychiatrist and family practice doctor for some medication adjustments. She states started yesterday she began having a small headache however it has progressed and continued into today. She did take some Tylenol and did notice some relief however she states that it is still significant. She also states that she continues to remain fatigued and ran down as she states.Patient states that the headache sensation is a throbbing sensation. She also states that she has some light sensitivity and noise sensitivity. She does have a history of having headaches in the past. She states she has noticed with a significant amount of medication changes that she has had in the last week she does feel that they were a contributing factor to her headache that she is experiencing.Denies any chest pain, shortness of breath, dizziness, lightheadedness, blurred vision, CMS concerns, abdominal pain, peripheral edema, or genitourinary concerns.Feels that she has been fairly healthy and has not been exposed any COVID-19 patients knowingly however she states that she has been out and about in the community. Onset: Sudden, Gradual Location: Reports: Head Quality: Reports: Ache, Throbbing Severity: Mild Improves with: Reports: Other Worsens with: Reports: Other Associated Symptoms: Reports: No Other Symptoms - Related Data Allergies Allergy/AdvReac Type Severity Reaction Status Date / Time No Known Allergies Allergy Verified 03/17/20 11:02 Home Meds: Home Meds Tiotropium [Spiriva Handihaler] 18 mcg INH DAILY 09/15/14 [History] ClonazePAM [KlonoPIN] 1 mg PO BEDTIME 10/12/16 [History] Omeprazole 20 mg PO BIDAC 10/12/16 [History] Albuterol [Ventolin HFA] 1 puff INH Q4H PRN 03/25/17 [History] Fluticasone Propionate [Flonase] 1 spray NASBOTH BID 03/25/17 [History] DULoxetine [Cymbalta] 120 mg PO DAILY 11/02/18 [History] Vitamin B Complex 1 cap PO DAILY 11/02/18 [History] oxyCODONE HCl/Acetaminophen [Percocet 5-325 mg Tablet] 1 tab PO BID PRN 08/13/19 [History] Ergocalciferol (Vitamin D2) [Vitamin D2] 50,000 unit PO Q7D 09/28/19 [History] Pramipexole [Mirapex] 0.125 mg PO TID tablet 09/29/19 [Rx] Budesonide/Formoterol Fumarate [Symbicort 80-4.5 MCG] 2 puff INH BID 02/23/20 [History] Docosanol [Abreva 10%] 1 applic TOP DAY 02/23/20 [History] Docusate Sodium [Colace] 100 mg PO DAILY 02/23/20 [History] LORazepam [Ativan] 1 mg PO DAILY PRN 02/23/20 [History] Lidocaine [Lidoderm] 1 each TP DAILY 02/23/20 [History] Linaclotide [Linzess] 290 mcg PO DAILY PRN 02/23/20 [History] Multivitamin 1 each PO BEDTIME 02/23/20 [History] Propylene Glycol/PEG 400/Pf [Systane 0.3-0.4% Eye Drop] 1 drop EYEBOTH Q4HR PRN 02/23/20 [History] Psyllium [Metamucil] 1 gm PO DAILY 02/23/20 [History] Saliva Stimulant Comb. No.2 [Biotene Oralbalance] 1 spray PO ASDIRECTED PRN 02/23/20 [History] atoMOXetine [Strattera] 80 mg PO DAILY 02/23/20 [History] polyethylene glycoL 3350 [MiraLAX] 1 dose PO TID PRN 02/23/20 [History] QUEtiapine Fumarate [Seroquel] 400 mg PO BEDTIME 03/17/20 [History] lamoTRIgine [Lamotrigine] 100 mg PO DAILY 03/17/20 [History] Ondansetron [Zofran ODT] 4 mg PO Q6H PRN #10 tab.dis 04/06/20 [Rx] Past Medical History HEENT History: Other HEENT History: HEARING LOSS. LEUKOPLAKIA OF ORAL CAVITY. 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 OSTEOPENIA. OSTEOMYELITIS. INJURY OF RIGHT KNEE MENISCUS. SACROILIAC JOINT DISEASE. DDD Neurological History: Reports: Other (See Below) Other Neuro History: ABSCESS IN EPIDURAL SPACE OF THORACIC SPINE. RLS Psychiatric History: Reports: ADHD, Anxiety, Depression, Eating Disorders Other Psychiatric History: HX ALCOHOL ABUSE - QUIT 2008 Endocrine/Metabolic History: Reports: Other (See Below) Other Endocrine/Metabolic History: HYPOVITAMINOSIS D Dermatologic History: Reports: Other (See Below) Other Dermatologic History: LIPOMA - Infectious Disease History Infectious Disease History: Reports: C-Difficile Other Infectious Disease History: States she had c-diff a year ago and is not currently having any loose stools - Past Surgical History Head Surgeries/Procedures: Reports: None Other HEENT Surgeries/Procedures: poor historian Female Surgical History: Reports: Breast Biopsy, Tubal Ligation, Other (See Below) Other Female Surgeries/Procedures: BREAST SURGERY - Neurological Surgical History: Reports: Laminectomy Musculoskeletal Surgical History: Reports: Other (See Below) Other Musculoskeletal Surgeries/Procedures:: HARDWARE REMOVAL OF LEFT ELBOW - 2017. BACK SURGERY Social & Family History - Family History Family Medical History: No Pertinent Family History - Caffeine Use Caffeine Use: Reports: Coffee Other Caffeine Use: Drinks coffee every once in a while ED ROS GENERAL - Review of Systems Review Of Systems: Comprehensive ROS is negative, except as noted in HPI. Constitutional: Reports: No Symptoms HEENT: Reports: No Symptoms Respiratory: Reports: No Symptoms Cardiovascular: Reports: No Symptoms Endocrine: Reports: No Symptoms GI/Abdominal: Reports: No Symptoms : Reports: No Symptoms Musculoskeletal: Reports: No Symptoms Skin: Reports: No Symptoms Neurological: Reports: No Symptoms Psychiatric: Reports: No Symptoms Hematologic/Lymphatic: Reports: No Symptoms Immunologic: Reports: No Symptoms ED EXAM, GENERAL - Physical Exam Exam: See Below Exam Limited By: No Limitations General Appearance: Alert, WD/WN, No Apparent Distress Eye Exam: Bilateral Eye: EOMI, PERRL, Other (light sensativity ) Ears: Normal External Exam, Normal Canal, Hearing Grossly Normal Nose: Normal Inspection, Normal Mucosa, No Blood Throat/Mouth: Normal Inspection, Normal Lips, Normal Voice, No Airway Compromise Head: Atraumatic, Normocephalic Neck: Normal Inspection, Supple, Non-Tender, Full Range of Motion Respiratory/Chest: No Respiratory Distress, Lungs Clear, Normal Breath Sounds, No Accessory Muscle Use, Chest Non-Tender Cardiovascular: Normal Peripheral Pulses, Regular Rate, Rhythm, No Rub Back Exam: Normal Inspection, Full Range of Motion Extremities: Normal Inspection, Normal Range of Motion, Non-Tender, Normal Capillary Refill Neurological: Alert, Oriented, CN II-XII Intact, Normal Gait Psychiatric: Normal Affect, Normal Mood Skin Exam: Warm, Dry, Normal Color Course - Orders/Labs/Meds Orders: Active Orders 24 hr Category Date Time Status CORONAVIRUS COVID-19 CHAKA [MOLEC] Routine Lab 09/16/20 08:35 Received Meds: Medications Discontinued Medications Generic Name Dose Route Start Last Admin Trade Name Neris PRN Reason Stop Dose Admin Diphenhydramine HCl 25 mg 09/16/20 09:12 Benadryl IM 09/16/20 09:13 ONETIME ONE Ketorolac Tromethamine 30 mg 09/16/20 09:12 Toradol IM 09/16/20 09:13 ONETIME ONE Departure - Departure Time of Disposition: 09:45 Disposition: Home, Self-Care 01 Condition: Good Clinical Impression: Head ache Qualifiers: Headache type: tension-type Headache chronicity pattern: acute headache Intractability: not intractable Qualified Code(s): G44.209 - Tension-type headache, unspecified, not intractable - Discharge Information *PRESCRIPTION DRUG MONITORING PROGRAM REVIEWED*: Not Applicable *COPY OF PRESCRIPTION DRUG MONITORING REPORT IN PATIENT KEARA: Not Applicable Instructions: General Headache Without Cause, [id number] Referrals: Delmy Burrell, [Primary Care Provider] - Forms: ED Department Discharge Additional Instructions: 1. rest 2. increase your water intake 3. Continue all at home medications 4. Activity and diet as tolerated 5. Can take over the counter Tylenol for any pain or discomfort 6. Follow up with PCP if symptoms continue, return, or progress 7. Call with any questions or concerns - My Orders Last 24 Hours: My Active Orders 09/16/20 08:35 CORONAVIRUS COVID-19 CHAKA [MOLEC] Routine - Assessment/Plan Last 24 Hours: My Active Orders 09/16/20 08:35 CORONAVIRUS COVID-19 CHAKA [MOLEC] Routine Assessment:: 1. headache Plan: 1. Ice Applied to the the back of the neck 2. Ketorlac 30mg IM given for headache 3. Benadryl 50mg IV given for headache 4. Zofran 4mg ODT for nausea 5. Education regarding splinting, activity, [id number] medications, and follow-up care provided. 6. All questions and concerns addressed with the patient prior to discharge
[2020-09-16] MEDS: Ondansetron 4 MG Tab.DIS PO ONE (09:39)
[2020-09-16 10:42] VITALS: BP 107/70; PULSE 103
== END 2020-09-16 09:45 | disposition home or self-care (01) ==
LOC: VM.ED 08:17
DX: G44.209 Tension-type headache, unspecified, not intractable (principal); J44.9 Chronic obstructive pulmonary disease, unspecified; Z79.899 Other long term (current) drug therapy
CPT/HCPCS: 96372; 99283; 99284; A9270-GY; J1200; J1885; U0002

== ENCOUNTER 2020-09-23 09:39 | Emergency (ER) | payer MEDICAID ==
[2020-09-23 09:52] VITALS: BP 103/76; PULSE 108
[2020-09-23] MEDS ORDERED: Albuterol/Ipratropium 3.0-0.5 MG/3 ML Neb Soln NEB ONE (09:59)
[2020-09-23] MEDS ORDERED: Dexamethasone 4 MG/ML SDV PO ONE (10:28)
[2020-09-23] MEDS ORDERED: LORazepam 1 MG Tab ONE (10:32)
[2020-09-23] MEDS ORDERED: LORazepam 1 MG Tab PO ONE (10:34)
--- NOTE | 2020-09-23 10:53 | EDM.PDOC ---
ED HPI GENERAL MEDICAL PROBLEM - General Chief Complaint: Respiratory Problem Stated Complaint: ER Time Seen by Provider: 09/23/20 09:57 Source of Information: Reports: Patient - History of Present Illness INITIAL COMMENTS - FREE TEXT/NARRATIVE: Bri is a 65 y/o female who comes to the ER with SOB and reporting that she was starting to have an asthma attack while at the grocery store. She also has an anxiety disorder and reports waking up at 4am and taking her clonazepam. She usually takes this daily, but then also has prn lorazepam which she did not take. She is quite anxious on arrival to the ER. No other sx. - Related Data Allergies Allergy/AdvReac Type Severity Reaction Status Date / Time No Known Allergies Allergy Verified 09/23/20 09:55 Home Meds: Home Meds Tiotropium [Spiriva Handihaler] 18 mcg INH DAILY 09/15/14 [History] ClonazePAM [KlonoPIN] 1 mg PO BEDTIME 10/12/16 [History] Omeprazole 20 mg PO BIDAC 10/12/16 [History] Albuterol [Ventolin HFA] 1 puff INH Q4H PRN 03/25/17 [History] Fluticasone Propionate [Flonase] 1 spray NASBOTH BID 03/25/17 [History] DULoxetine [Cymbalta] 120 mg PO DAILY 11/02/18 [History] Vitamin B Complex 1 cap PO DAILY 11/02/18 [History] oxyCODONE HCl/Acetaminophen [Percocet 5-325 mg Tablet] 1 tab PO BID PRN 08/13/19 [History] Ergocalciferol (Vitamin D2) [Vitamin D2] 50,000 unit PO Q7D 09/28/19 [History] Pramipexole [Mirapex] 0.125 mg PO TID tablet 09/29/19 [Rx] Budesonide/Formoterol Fumarate [Symbicort 80-4.5 MCG] 2 puff INH BID 02/23/20 [History] Docosanol [Abreva 10%] 1 applic TOP 5XDAY 02/23/20 [History] Docusate Sodium [Colace] 100 mg PO DAILY 02/23/20 [History] LORazepam [Ativan] 1 mg PO DAILY PRN 02/23/20 [History] Lidocaine [Lidoderm] 1 each TP DAILY 02/23/20 [History] Linaclotide [Linzess] 290 mcg PO DAILY PRN 02/23/20 [History] Multivitamin 1 each PO BEDTIME 02/23/20 [History] Propylene Glycol/PEG 400/Pf [Systane 0.3-0.4% Eye Drop] 1 drop EYEBOTH Q4HR PRN 02/23/20 [History] Psyllium [Metamucil] 1 gm PO DAILY 02/23/20 [History] Saliva Stimulant Comb. No.2 [Biotene Oralbalance] 1 spray PO ASDIRECTED PRN 02/23/20 [History] atoMOXetine [Strattera] 80 mg PO DAILY 02/23/20 [History] polyethylene glycoL 3350 [MiraLAX] 1 dose PO TID PRN 02/23/20 [History] QUEtiapine Fumarate [Seroquel] 400 mg PO BEDTIME 03/17/20 [History] lamoTRIgine [Lamotrigine] 100 mg PO DAILY 03/17/20 [History] Ondansetron [Zofran ODT] 4 mg PO Q6H PRN #10 tab.dis 04/06/20 [Rx] Past Medical History HEENT History: Other HEENT History: HEARING LOSS. LEUKOPLAKIA OF ORAL CAVITY. 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 OSTEOPENIA. OSTEOMYELITIS. INJURY OF RIGHT KNEE MENISCUS. SACROILIAC JOINT DISEASE. DDD Neurological History: Reports: Other (See Below) Other Neuro History: ABSCESS IN EPIDURAL SPACE OF THORACIC SPINE. RLS Psychiatric History: Reports: ADHD, Anxiety, Depression, Eating Disorders Other Psychiatric History: HX ALCOHOL ABUSE - QUIT 2008 Endocrine/Metabolic History: Reports: Other (See Below) Other Endocrine/Metabolic History: HYPOVITAMINOSIS D Dermatologic History: Reports: Other (See Below) Other Dermatologic History: LIPOMA - Infectious Disease History Infectious Disease History: Reports: C-Difficile Other Infectious Disease History: States she had c-diff a year ago and is not currently having any loose stools - Past Surgical History Head Surgeries/Procedures: Reports: None Other HEENT Surgeries/Procedures: poor historian Female Surgical History: Reports: Breast Biopsy, Tubal Ligation, Other (See Below) Other Female Surgeries/Procedures: BREAST SURGERY - Neurological Surgical History: Reports: Laminectomy Musculoskeletal Surgical History: Reports: Other (See Below) Other Musculoskeletal Surgeries/Procedures:: HARDWARE REMOVAL OF LEFT ELBOW - 2017. BACK SURGERY Social & Family History - Family History Family Medical History: No Pertinent Family History - Tobacco Use Tobacco Use Status *Q: Current Every Day Tobacco User Years of Tobacco use: 50 Packs/Tins Daily: 1 - Caffeine Use Caffeine Use: Reports: Coffee Other Caffeine Use: Drinks coffee every once in a while ED ROS GENERAL - Review of Systems Review Of Systems: See Below Constitutional: Reports: No Symptoms HEENT: Reports: No Symptoms Respiratory: Reports: Shortness of Breath Cardiovascular: Reports: No Symptoms Endocrine: Reports: No Symptoms GI/Abdominal: Reports: No Symptoms : Reports: No Symptoms Musculoskeletal: Reports: No Symptoms Skin: Reports: No Symptoms Neurological: Reports: No Symptoms Psychiatric: Reports: Anxiety Hematologic/Lymphatic: Reports: No Symptoms Immunologic: Reports: No Symptoms ED EXAM, GENERAL - Physical Exam Exam: See Below General Appearance: Alert, WD/WN, Anxious (Adult female. She is lying on the ER card holdiong the nurse's hand for support.) Ears: Normal Canal, Hearing Grossly Normal, Normal TMs Nose: Normal Inspection, Normal Mucosa Throat/Mouth: Normal Inspection, Normal Lips, Normal Voice Head: Atraumatic, Normocephalic Neck: Normal Inspection, Supple Respiratory/Chest: Lungs Clear, Chest Non-Tender, Other (Appears to be taking slow deep breaths and complaining of SOB.) GI/Abdominal: Normal Bowel Sounds, Soft, Non-Tender (Female) Exam: Deferred Rectal (Female) Exam: Deferred Back Exam: Normal Inspection Extremities: Normal Inspection Neurological: Alert, Oriented, CN II-XII Intact, Normal Cognition, Normal Gait Psychiatric: Anxious, Tearful Skin Exam: Warm, Dry, Intact, Normal Color Lymphatic: No Adenopathy Course - Vital Signs Text/Narrative:: [id number] The patient was seen by the [facility]. She had a Duoneb on arrival. She initially had reported that she was having an asthma attack and was given Decadron 8mg po, but then it became apparent she was really more anxious. She was given Lorazepam 1mg PO. 1100 Patient rested and reported that she felt so much better. Less anxious and breathing easier. She was given discharge instructions and left the ER in stable condition. Last Recorded V/S: Last Vital Signs Temp 35.8 C L 09/23/20 09:43 Pulse 108 H 09/23/20 09:43 Resp 20 09/23/20 09:43 BP 103/76 09/23/20 09:43 Pulse Ox 98 09/23/20 09:43 - Orders/Labs/Meds Orders: Active Orders 24 hr Category Date Time Status RT Aerosol Therapy [RC] ASDIRECTED Care 09/23/20 09:59 Active Meds: Medications Discontinued Medications Generic Name Dose Route Start Last Admin Trade Name Freq PRN Reason Stop Dose Admin Albuterol/Ipratropium 3 ml 09/23/20 09:59 09/23/20 09:48 Duoneb 3.0-0.5 Mg/3 Ml NEB 09/23/20 10:00 3 ml ONETIME ONE Administration Dexamethasone 8 mg 09/23/20 10:28 09/23/20 10:33 Decadron PO 09/23/20 10:29 8 mg ONETIME ONE Administration Lorazepam Confirm 09/23/20 10:32 09/23/20 10:27 Ativan Administered 09/23/20 10:33 1 mg Dose Administration 1 mg .ROUTE .STK-MED ONE Lorazepam 1 mg 09/23/20 10:34 09/23/20 10:52 Ativan PO 09/23/20 10:35 Not Given ONETIME ONE Departure - Departure Time of Disposition: 11:01 Disposition: Home, Self-Care 01 Condition: Good Clinical Impression: Anxiety Exacerbation of asthma Qualifiers: Asthma severity: unspecified severity Asthma persistence: unspecified Qualified Code(s): J45.901 - Unspecified asthma with (acute) exacerbation - Discharge Information *PRESCRIPTION DRUG MONITORING PROGRAM REVIEWED*: Not Applicable *COPY OF PRESCRIPTION DRUG MONITORING REPORT IN PATIENT KEARA: Not Applicable Instructions: Managing Anxiety, Adult, Asthma Attack Prevention, Adult Referrals: Delmy Burrell DO [Physician] - Forms: ED Department Discharge Additional Instructions: -Resume all meds as prescribed by PCP -Follow up in clinic for recheck or return to the ER as needed Sepsis Event Note (ED) - Evaluation Sepsis Screening Result: No Definite Risk - Focused Exam Vital Signs: Vital Signs Temp Pulse Resp BP Pulse Ox 09/23/20 09:43 35.8 C L 108 H 20 103/76 98 - My Orders Last 24 Hours: My Active Orders 09/23/20 09:59 RT Aerosol Therapy [RC] ASDIRECTED - Assessment/Plan Last 24 Hours: My Active Orders 09/23/20 09:59 RT Aerosol Therapy [RC] ASDIRECTED
== END 2020-09-23 11:06 | disposition home or self-care (01) ==
LOC: VM.ED 09:39
DX: J45.901 Unspecified asthma with (acute) exacerbation (principal); F41.9 Anxiety disorder, unspecified; Z72.0 Tobacco use; Z79.899 Other long term (current) drug therapy
CPT/HCPCS: 94640; 99284; 99284-25; A9270-GY; J1100; J7620-GY

== ENCOUNTER 2020-10-13 13:21 | Emergency (ER) | payer MEDICAID ==
[2020-10-13] MEDS ORDERED: hydrOXYzine HCl 25 MG Tab PO ONE ×2 (13:30→13:55)
[2020-10-13] MEDS ORDERED: LORazepam 1 MG Tab PO ONE (13:30)
--- NOTE | 2020-10-13 13:50 | EDM.PDOC ---
ED HPI GENERAL MEDICAL PROBLEM - General Chief Complaint: Behavioral/Psych Stated Complaint: HEADACHE/ANXIETY ATTACK/SOB Time Seen by Provider: 10/13/20 13:25 Source of Information: Reports: Patient History Limitations: Reports: Other (anxious) - History of Present Illness INITIAL COMMENTS - FREE TEXT/NARRATIVE: Patient comes into the emergency department complaints of anxiety. Patient states that she has a longstanding history of anxiety. She states that she began experiencing excessive amount of anxiety to a full panic attack this morning. She did not take any of her as needed medications at home prior to arrival to emergency department. She states that she is overly anxious and cannot control her self. She states that she is shaky and crying and cannot control her emotions. Patient denies any loss of consciousness, dizziness, lightheadedness, blurred vision, chest pain, shortness of breath, abdominal pain, or peripheral edema. Patient states that she has run out of her medications and has not been able to take them appropriately to help with her anxiety. Onset: Sudden Severity: Moderate Improves with: Reports: None Worsens with: Reports: None Associated Symptoms: Reports: No Other Symptoms - Related Data Allergies Allergy/AdvReac Type Severity Reaction Status Date / Time No Known Allergies Allergy Verified 09/23/20 09:55 Home Meds: Home Meds Tiotropium [Spiriva Handihaler] 18 mcg INH DAILY 09/15/14 [History] ClonazePAM [KlonoPIN] 1 mg PO BEDTIME 10/12/16 [History] Omeprazole 20 mg PO BIDAC 10/12/16 [History] Albuterol [Ventolin HFA] 1 puff INH Q4H PRN 03/25/17 [History] Fluticasone Propionate [Flonase] 1 spray NASBOTH BID 03/25/17 [History] DULoxetine [Cymbalta] 120 mg PO DAILY 11/02/18 [History] Vitamin B Complex 1 cap PO DAILY 11/02/18 [History] oxyCODONE HCl/Acetaminophen [Percocet 5-325 mg Tablet] 1 tab PO BID PRN 08/13/19 [History] Ergocalciferol (Vitamin D2) [Vitamin D2] 50,000 unit PO Q7D 09/28/19 [History] Pramipexole [Mirapex] 0.125 mg PO TID tablet 02/13/20 [Rx] Budesonide/Formoterol Fumarate [Symbicort 80-4.5 MCG] 2 puff INH BID 02/23/20 [History] Docosanol [Abreva 10%] 1 applic TOP 5XDAY 02/23/20 [History] Docusate Sodium [Colace] 100 mg PO DAILY 02/23/20 [History] LORazepam [Ativan] 1 mg PO DAILY PRN 02/23/20 [History] Lidocaine [Lidoderm] 1 each TP DAILY 02/23/20 [History] Linaclotide [Linzess] 290 mcg PO DAILY PRN 02/23/20 [History] Multivitamin 1 each PO BEDTIME 02/23/20 [History] Propylene Glycol/PEG 400/Pf [Systane 0.3-0.4% Eye Drop] 1 drop EYEBOTH Q4HR PRN 02/23/20 [History] Psyllium [Metamucil] 1 gm PO DAILY 02/23/20 [History] Saliva Stimulant Comb. No.2 [Biotene Oralbalance] 1 spray PO ASDIRECTED PRN 02/23/20 [History] atoMOXetine [Strattera] 80 mg PO DAILY 02/23/20 [History] polyethylene glycoL 3350 [MiraLAX] 1 dose PO TID PRN 02/23/20 [History] QUEtiapine Fumarate [Seroquel] 400 mg PO BEDTIME 03/17/20 [History] lamoTRIgine [Lamotrigine] 100 mg PO DAILY 03/17/20 [History] Ondansetron [Zofran ODT] 4 mg PO Q6H PRN #10 tab.dis 04/06/20 [Rx] Past Medical History HEENT History: Other HEENT History: HEARING LOSS. LEUKOPLAKIA OF ORAL CAVITY. 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 OSTEOPENIA. OSTEOMYELITIS. INJURY OF RIGHT KNEE MENISCUS. SACROILIAC JOINT DISEASE. DDD Neurological History: Reports: Other (See Below) Other Neuro History: ABSCESS IN EPIDURAL SPACE OF THORACIC SPINE. RLS Psychiatric History: Reports: ADHD, Anxiety, Depression, Eating Disorders Other Psychiatric History: HX ALCOHOL ABUSE - QUIT 2008 Endocrine/Metabolic History: Reports: Other (See Below) Other Endocrine/Metabolic History: HYPOVITAMINOSIS D Dermatologic History: Reports: Other (See Below) Other Dermatologic History: LIPOMA - Infectious Disease History Infectious Disease History: Reports: C-Difficile Other Infectious Disease History: States she had c-diff a year ago and is not currently having any loose stools - Past Surgical History Head Surgeries/Procedures: Reports: None Other HEENT Surgeries/Procedures: poor historian Female Surgical History: Reports: Breast Biopsy, Tubal Ligation, Other (See Below) Other Female Surgeries/Procedures: BREAST SURGERY - Neurological Surgical History: Reports: Laminectomy Musculoskeletal Surgical History: Reports: Other (See Below) Other Musculoskeletal Surgeries/Procedures:: HARDWARE REMOVAL OF LEFT ELBOW - 2016. BACK SURGERY Social & Family History - Family History Family Medical History: No Pertinent Family History - Caffeine Use Caffeine Use: Reports: Coffee Other Caffeine Use: Drinks coffee every once in a while ED ROS GENERAL - Review of Systems Review Of Systems: Comprehensive ROS is negative, except as noted in HPI. Constitutional: Reports: No Symptoms HEENT: Reports: No Symptoms Respiratory: Reports: No Symptoms Cardiovascular: Reports: No Symptoms Endocrine: Reports: No Symptoms GI/Abdominal: Reports: No Symptoms : Reports: No Symptoms Musculoskeletal: Reports: No Symptoms Skin: Reports: No Symptoms Neurological: Reports: No Symptoms Psychiatric: Reports: Anxiety Hematologic/Lymphatic: Reports: No Symptoms Immunologic: Reports: No Symptoms ED EXAM, GENERAL - Physical Exam Exam: See Below Exam Limited By: No Limitations General Appearance: Alert, WD/WN, No Apparent Distress Head: Atraumatic, Normocephalic Neck: Normal Inspection, Supple, Non-Tender, Full Range of Motion Respiratory/Chest: No Respiratory Distress, Lungs Clear, Normal Breath Sounds, No Accessory Muscle Use, Chest Non-Tender Cardiovascular: Normal Peripheral Pulses, Regular Rate, Rhythm, No Edema GI/Abdominal: Normal Bowel Sounds, Soft, Non-Tender Back Exam: Normal Inspection, Full Range of Motion Extremities: Normal Inspection, Normal Range of Motion, Non-Tender, No Pedal Edema, Normal Capillary Refill Neurological: Alert, Oriented, Normal Cognition, Normal Gait Psychiatric: Anxious Skin Exam: Warm, Dry, Intact, Normal Color Course - Orders/Labs/Meds Meds: Medications Discontinued Medications Generic Name Dose Route Start Last Admin Trade Name Neris PRN Reason Stop Dose Admin Hydroxyzine HCl 25 mg 10/13/20 13:30 Atarax PO 10/13/20 13:31 ONETIME ONE Lorazepam 1 mg 10/13/20 13:30 Ativan PO 10/13/20 13:31 ONETIME ONE Departure - Departure Time of Disposition: 14:05 Disposition: Home, Self-Care 01 Condition: Good Clinical Impression: Anxiety - Discharge Information *PRESCRIPTION DRUG MONITORING PROGRAM REVIEWED*: Not Applicable *COPY OF PRESCRIPTION DRUG MONITORING REPORT IN PATIENT KEARA: Not Applicable Instructions: Managing Anxiety, Adult Additional Instructions: 1. rest 2. increase your water intake 3. Continue all at home medications 4. Activity and diet as tolerated 5. Can take over the counter Tylenol for any pain or discomfort 6. Follow up with PCP if symptoms continue, return, or progress 7. Call with any questions or concerns - Assessment/Plan Assessment:: 1. anxiety attack Plan: 1. Hydroxyzine 25mg Po given in the ER 2. Ativan 1mg PO given in the ER 3. Hydroxyzine 25mg PO sent with the patient to help with anxiety tomorrow if need be 4. Education regarding splinting, activity, [id number] medications, and follow-up care provided. 5. All questions and concerns addressed with the patient prior to discharge
[2020-10-13 17:04] VITALS: BP 127/67; PULSE 113
== END 2020-10-13 14:02 | disposition home or self-care (01) ==
LOC: VM.ED 13:21
DX: F41.9 Anxiety disorder, unspecified (principal); J44.9 Chronic obstructive pulmonary disease, unspecified; Z79.899 Other long term (current) drug therapy
CPT/HCPCS: 99283; 99284; A9270-GY

== ENCOUNTER 2021-03-05 08:52 | Emergency (ER) | payer MEDICAID ==
[2021-03-05] MEDS ORDERED: Sodium Chloride 0.9% 10 ML Syringe FLUSH PRN (09:13)
[2021-03-05] MEDS ORDERED: Ondansetron 4 MG/2 ML SDV IVPUSH ONE (09:14)
[2021-03-05] MEDS ORDERED: Lactated Ringers 1,000 ML IV ONE ×2 (09:14→10:30)
[2021-03-05 09:57] LABS: CHLORIDE,CL 108 mmol/L (98-107); SODIUM,NA 138 mmol/L (136-145)
[2021-03-05 09:58] LABS: ANION GAP 17.4 mmol/L (5-15)
[2021-03-05] MEDS ORDERED: ClonazePAM 0.5 MG Tab PO ONE (10:04)
[2021-03-05] MEDS ORDERED: DULoxetine 60 MG Cap PO ONE (10:05)
[2021-03-05] MEDS ORDERED: Ketorolac 30 MG/ML SDV IVPUSH ONE (10:06)
--- NOTE | 2021-03-05 10:13 | EDM.PDOC ---
ED HPI GENERAL MEDICAL PROBLEM - General Chief Complaint: Gastrointestinal Problem Stated Complaint: weakness, n/v Time Seen by Provider: 03/05/21 09:09 Source of Information: Reports: Patient - History of Present Illness INITIAL COMMENTS - FREE TEXT/NARRATIVE: Bri is a 65 y/o female who presents to the ER with complaints of nausea and just "not feeling well". She arrives to the ER by public transportation. Patient tearful and hard to assess with questions. Her complaints are quite nonspecific and she just over all reports not feeling well. She has had diarrhea several times and a cough. Denies fever., WHen asked if she took her morning meds, she responds "I forgot." Right Shoulder Pain Score (Numeric/FACES): 4 - Related Data Allergies Allergy/AdvReac Type Severity Reaction Status Date / Time No Known Allergies Allergy Verified 09/23/20 09:55 Home Meds: Home Meds Tiotropium [Spiriva Handihaler] 18 mcg INH DAILY 09/15/14 [History] ClonazePAM [KlonoPIN] 1 mg PO BEDTIME 10/12/16 [History] Omeprazole 20 mg PO BIDAC 10/12/16 [History] Albuterol [Ventolin HFA] 1 puff INH Q4H PRN 03/25/17 [History] Fluticasone Propionate [Flonase] 1 spray NASBOTH BID 03/25/17 [History] DULoxetine [Cymbalta] 120 mg PO DAILY 11/02/18 [History] Vitamin B Complex 1 cap PO DAILY 11/02/18 [History] oxyCODONE HCl/Acetaminophen [Percocet 5-325 mg Tablet] 1 tab PO BID PRN 08/13/19 [History] Ergocalciferol (Vitamin D2) [Vitamin D2] 50,000 unit PO Q7D 09/28/19 [History] Pramipexole [Mirapex] 0.125 mg PO TID tablet 09/29/19 [Rx] Budesonide/Formoterol Fumarate [Symbicort 80-4.5 MCG] 2 puff INH BID 02/23/20 [History] Docusate Sodium [Colace] 100 mg PO DAILY 02/23/20 [History] LORazepam [Ativan] 1 mg PO DAILY PRN 02/23/20 [History] Lidocaine [Lidoderm] 1 each TP DAILY 02/23/20 [History] Linaclotide [Linzess] 290 mcg PO DAILY PRN 02/23/20 [History] Multivitamin 1 each PO BEDTIME 02/23/20 [History] Propylene Glycol/PEG 400/Pf [Systane 0.3-0.4% Eye Drop] 1 drop EYEBOTH Q4HR PRN 02/23/20 [History] Psyllium [Metamucil] 1 gm PO DAILY 02/23/20 [History] Saliva Stimulant Comb. No.2 [Biotene Oralbalance] 1 spray PO ASDIRECTED PRN 02/23/20 [History] atoMOXetine [Strattera] 80 mg PO DAILY 02/23/20 [History] docosanoL [Abreva 10%] 1 applic TOP 5XDAY 02/23/20 [History] polyethylene glycoL 3350 [MiraLAX] 1 dose PO TID PRN 02/23/20 [History] QUEtiapine Fumarate [Seroquel] 400 mg PO BEDTIME 03/17/20 [History] lamoTRIgine [Lamotrigine] 100 mg PO DAILY 03/17/20 [History] Ondansetron [Zofran ODT] 4 mg PO Q6H PRN #10 tab.dis 04/06/20 [Rx] Past Medical History HEENT History: Other HEENT History: HEARING LOSS. LEUKOPLAKIA OF ORAL CAVITY. 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 OSTEOPENIA. OSTEOMYELITIS. INJURY OF RIGHT KNEE MENISCUS. SACROILIAC JOINT DISEASE. DDD Neurological History: Reports: Other (See Below) Other Neuro History: ABSCESS IN EPIDURAL SPACE OF THORACIC SPINE. RLS Psychiatric History: Reports: ADHD, Anxiety, Depression, Eating Disorders Other Psychiatric History: HX ALCOHOL ABUSE - QUIT 2008 Endocrine/Metabolic History: Reports: Other (See Below) Other Endocrine/Metabolic History: HYPOVITAMINOSIS D Dermatologic History: Reports: Other (See Below) Other Dermatologic History: LIPOMA - Infectious Disease History Infectious Disease History: Reports: C-Difficile Other Infectious Disease History: States she had c-diff a year ago and is not currently having any loose stools - Past Surgical History Head Surgeries/Procedures: Reports: None Other HEENT Surgeries/Procedures: poor historian Female Surgical History: Reports: Breast Biopsy, Tubal Ligation, Other (See Below) Other Female Surgeries/Procedures: BREAST SURGERY - Neurological Surgical History: Reports: Laminectomy Musculoskeletal Surgical History: Reports: Other (See Below) Other Musculoskeletal Surgeries/Procedures:: HARDWARE REMOVAL OF LEFT ELBOW - 2017. BACK SURGERY Social & Family History - Family History Family Medical History: No Pertinent Family History - Tobacco Use Tobacco Use Status *Q: Current Every Day Tobacco User Years of Tobacco use: 50 Packs/Tins Daily: 1 - Caffeine Use Caffeine Use: Reports: None Other Caffeine Use: Drinks coffee every once in a while - Recreational Drug Use Recreational Drug Use: No Review of Systems - Review of Systems Review Of Systems: See Below Constitutional: Reports: Weakness Eyes: Reports: No Symptoms Ears: Reports: No Symptoms Nose: Reports: No Symptoms Mouth/Throat: Reports: No Symptoms Respiratory: Reports: No Symptoms Cardiovascular: Reports: No Symptoms GI/Abdominal: Reports: Diarrhea Genitourinary: Reports: No Symptoms Musculoskeletal: Reports: Back Pain Skin: Reports: No Symptoms Neurological: Reports: No Symptoms Psychiatric: Reports: Anxiety ED EXAM, GENERAL - Physical Exam Exam: See Below General Appearance: Alert, WD/WN, No Apparent Distress (Adult female, tearful and hard to direct with conversation.) Eye Exam: Bilateral Eye: PERRL Ears: Hearing Grossly Normal Ear Exam: Bilateral Ear: TM Dull Nose: Normal Inspection, Normal Mucosa Throat/Mouth: Normal Inspection, Normal Lips, Normal Voice Head: Atraumatic, Normocephalic Neck: Supple Respiratory/Chest: No Respiratory Distress, Lungs Clear, Chest Non-Tender Cardiovascular: Normal Peripheral Pulses, Regular Rate, Rhythm GI/Abdominal: Normal Bowel Sounds, Soft, No Distention (Female) Exam: Deferred Rectal (Female) Exam: Deferred Back Exam: Normal Inspection Extremities: Normal Inspection, Normal Range of Motion, No Pedal Edema, Normal Capillary Refill Neurological: Alert, Oriented, CN II-XII Intact, Inattentive Psychiatric: Anxious, Tearful Skin Exam: Warm, Dry, Intact, Normal Color Lymphatic: No Adenopathy #1 Interpretation EKG Date: 03/05/21 Time: 09:33 Rhythm: NSR Rate (Beats/Min): 80 [place]: Normal P-Wave: Present QRS: Normal ST-T: Normal QT: Normal EKG Interpretation Comments: NSR Course - Vital Signs Text/Narrative:: 908 The patient was seen by the HOSPITAL CNA. Labs ordered. She was given A liter fo NS and Zofran 4mg IVP. 1000 Some labs resulted. Patient tearful and anxious and now complaining of low back pain. Admits she forget to take her AM meds. SHe does live in her own apt and it is not clear if she has been taking any meds. Clonazepam 1mg po ordered for the anxiety and Toradol 30mg IVP given for 8/10 back pain. Suspect sx related to patient not taking her meds and more psych in nature, but will await further labs. Labs reviewed. CMP Note BUN=56, Car Chaser=1.6, Potassium=3.4, Mg=2.4, Amylase=24, Yosspj=465, Troponin I=<4, CRP=<0.2. HOSPITAL CNA advised more IV fluids. Patient upset and anxious and reports that she is no longer going to stay here and that she needs to go home to rest. Multiple attempts to get her to stay for further treatment. This patient has elected to leave against medical advice. In my opinion, the patient has capacity to leave AMA. The patient is clinically sober, free from distracting injury, appears to have intact insight and judgment and reason, and in my opinion has capacity to make decisions. I explained to the patient that her symptoms may represent anxiety and also severe dehydration and the patient verbalized understanding of my concerns. I had a discussion with the patient about her workup and results, and that she may still be dehydrated regardless of the fact that she has received some IV fluid. I informed the patient that the next step in diagnosis and treatment would be further IV fluids, and they verbalized understanding of this as well. I explained the risks of leaving without further workup or treatment, which inclu ded reasonably foreseeable complications such as , serious injury, permanent disability. I also offered alternatives to departing AMA such as assigning the patient a different provider or an alternate workup pathway. The patient is refusing any further care, specifically any further IV fluids or Observation admission, and is leaving against medical advice. I am unable to convince the patient to stay. I have asked her to return as soon as possible to complete their evaluation, and also explained that they were welcome to return to the ER for further evaluation whenever they choose. I have asked the patient to follow up with their primary doctor as soon as possible. I have answered all their questions. Patient signed AMA paperwork. Last Recorded V/S: Last Vital Signs Temp 36.4 C 03/05/21 08:57 Pulse 78 03/05/21 09:59 Resp 22 H 03/05/21 08:57 BP 88/61 L 03/05/21 09:59 Pulse Ox 100 03/05/21 08:57 - Orders/Labs/Meds Orders: Active Orders 24 hr Category Date Time Status CULTURE URINE [RM] Stat Lab 03/05/21 09:17 Received Saline Lock Insert [OM.PC] Stat Oth 03/05/21 09:13 Ordered Labs: Laboratory Tests 03/05/21 03/05/21 03/05/21 Range/Units 09:17 09:21 09:21 WBC 8.1 (4.0-10.0) x10^3/uL RBC 5.19 (4.00-5.50) x10^6/uL Hgb 17.1 H D (12.0-16.0) g/dL Hct 47.3 H (33.0-47.0) % MCV 91.1 (78.0-93.0) fL MCH 32.9 H (26.0-32.0) pg MCHC 36.2 H (32.0-36.0) g/dL RDW Coeff of Gordon 12.7 (10.0-15.0) % Plt Count 162 (130-400) x10^3/uL Neut % (Auto) 66.3 (50.0-80.0) % Lymph % (Auto) 26.5 (25.0-50.0) % Motley % (Auto) 5.7 (2.0-11.0) % Eos % (Auto) 1.1 (0.0-4.0) % Baso % (Auto) 0.4 (0.2-1.2) % Sodium 138 (136-145) mmol/L Potassium 3.4 L (3.5-5.1) mmol/L Chloride 108 H (98-107) mmol/L Carbon Dioxide 16 L (21-32) mmol/L Anion Gap 17.4 H (5-15) mmol/L BUN 56 H D (7-18) mg/dL Creatinine 1.6 H (0.55-1.02) mg/dL Est Cr Clr Drug Dosing 30.27 mL/min Estimated GFR (MDRD) 32 Glucose 106 H (70-99) mg/dL Lactic Acid (0.4-2.0) mmol/L Calcium 8.6 (8.5-10.1) mg/dL Corrected Calcium 8.8 (8.5-10.1) mg/dL Magnesium 2.4 (1.8-2.4) mg/dL Total Bilirubin 0.3 (0.2-1.0) mg/dL AST 20 (15-37) U/L ALT 23 (14-59) U/L Alkaline Phosphatase 91 (46-116) U/L Troponin I High Sens < 4 (<=51) ng/L C-Reactive Protein < 0.2 (<=0.9) mg/dL Total Protein 7.1 (6.4-8.2) g/dL Albumin 3.8 (3.4-5.0) g/dL Globulin 3.3 Albumin/Globulin Ratio 1.15 Amylase 45 (25-115) U/L Lipase 109 (73-393) U/L TSH, Ultra Sensitive 0.910 (0.358-3.74) uIU/mL Urine Color Yellow (YELLOW) Urine Appearance Slightly cloudy H (CLEAR) Urine pH 6.5 (5.0-8.0) Ur Specific [place] 1.020 Urine Protein Negative (NEGATIVE) mg/dL Urine Glucose (UA) Negative (NEGATIVE) mg/dL Urine Ketones Negative (NEGATIVE) mg/dL Urine Occult Blood Negative (NEGATIVE) Urine Nitrite Negative (NEGATIVE) Urine Bilirubin Negative (NEGATIVE) Urine Urobilinogen 0.2 (0.2) EU/dL Ur Leukocyte Esterase Small H (NEGATIVE) Urine RBC 0-5 (NOT SEEN) /HPF Urine WBC 5-10 H (NOT SEEN) /HPF Ur Squamous Epith Cells Occasional H (NOT SEEN) /HPF Urine Bacteria Rare (NOT SEEN) /HPF Urine Mucus Rare H (NOT SEEN) /LPF SARS CoV-2 RNA Rapid CHAKA (NEGATIVE) 03/05/21 03/05/21 Range/Units 09:21 09:46 WBC (4.0-10.0) x10^3/uL RBC (4.00-5.50) x10^6/uL Hgb (12.0-16.0) g/dL Hct (33.0-47.0) % MCV (78.0-93.0) fL MCH (26.0-32.0) pg MCHC (32.0-36.0) g/dL RDW Coeff of Gordon (10.0-15.0) % Plt Count (130-400) x10^3/uL Neut % (Auto) (50.0-80.0) % Lymph % (Auto) (25.0-50.0) % Motley % (Auto) (2.0-11.0) % Eos % (Auto) (0.0-4.0) % Baso % (Auto) (0.2-1.2) % Sodium (136-145) mmol/L Potassium (3.5-5.1) mmol/L Chloride (98-107) mmol/L Carbon Dioxide (21-32) mmol/L Anion Gap (5-15) mmol/L BUN (7-18) mg/dL Creatinine (0.55-1.02) mg/dL Est Cr Clr Drug Dosing mL/min Estimated GFR (MDRD) Glucose (70-99) mg/dL Lactic Acid 0.6 (0.4-2.0) mmol/L Calcium (8.5-10.1) mg/dL Corrected Calcium (8.5-10.1) mg/dL Magnesium (1.8-2.4) mg/dL Total Bilirubin (0.2-1.0) mg/dL AST (15-37) U/L ALT (14-59) U/L Alkaline Phosphatase (46-116) U/L Troponin I High Sens (<=51) ng/L C-Reactive Protein (<=0.9) mg/dL Total Protein (6.4-8.2) g/dL Albumin (3.4-5.0) g/dL Globulin Albumin/Globulin Ratio Amylase (25-115) U/L Lipase (73-393) U/L TSH, Ultra Sensitive (0.358-3.74) uIU/mL Urine Color (YELLOW) Urine Appearance (CLEAR) Urine pH (5.0-8.0) Ur Specific [place] Urine Protein (NEGATIVE) mg/dL Urine Glucose (UA) (NEGATIVE) mg/dL Urine Ketones (NEGATIVE) mg/dL Urine Occult Blood (NEGATIVE) Urine Nitrite (NEGATIVE) Urine Bilirubin (NEGATIVE) Urine Urobilinogen (0.2) EU/dL Ur Leukocyte Esterase (NEGATIVE) Urine RBC (NOT SEEN) /HPF Urine WBC (NOT SEEN) /HPF Ur Squamous Epith Cells (NOT SEEN) /HPF Urine Bacteria (NOT SEEN) /HPF Urine Mucus (NOT SEEN) /LPF SARS CoV-2 RNA Rapid CHAKA Negative (NEGATIVE) Meds: Medications Discontinued Medications Generic Name Dose Route Start Last Admin Trade Name Freq PRN Reason Stop Dose Admin Clonazepam 1 mg 03/05/21 10:04 03/05/21 10:12 Clonazepam 0.5 Mg Tab PO 03/05/21 10:05 1 mg ONETIME ONE Administration Duloxetine HCl 60 mg 03/05/21 10:05 03/05/21 10:31 Duloxetine 60 Mg Cap PO 03/05/21 10:06 60 mg ONETIME ONE Administration Lactated Ringer's 1,000 mls @ 999 mls/hr 03/05/21 09:14 03/05/21 09:32 Ringers, Lactated IV 03/05/21 10:14 999 mls/hr ONETIME ONE Administration Lactated Ringer's 1,000 mls @ 999 mls/hr 03/05/21 10:30 Ringers, Lactated IV 03/05/21 11:30 ONETIME ONE Ketorolac Tromethamine 30 mg 03/05/21 10:06 03/05/21 10:11 Ketorolac 30 Mg/Ml Sdv IVPUSH 03/05/21 10:07 30 mg ONETIME ONE Administration Ondansetron HCl 4 mg 03/05/21 09:14 03/05/21 09:43 Ondansetron 4 Mg/2 Ml Sdv IVPUSH 03/05/21 09:15 4 mg ONETIME ONE Administration Sodium Chloride 10 ml 03/05/21 09:13 Sodium Chloride 0.9% 10 Ml Syringe FLUSH ASDIRECTED PRN Keep Vein Open Departure - Departure Time of Disposition: 10:30 Disposition: Admitted As Inpatient 67 Condition: Good Clinical Impression: Acute anxiety, Dehydration Diarrhea Qualifiers: Diarrhea type: unspecified type Qualified Code(s): R19.7 - Diarrhea, unspecified - Discharge Information Referrals: Delmy Burrell DO [Primary Care Provider] - Forms: ED Department Discharge Additional Instructions: -Left AMA Sepsis Event Note (ED) - Evaluation Sepsis Screening Result: No Definite Risk - Focused Exam Vital Signs: Vital Signs Temp Pulse Resp BP Pulse Ox 03/05/21 09:59 78 88/61 L 03/05/21 09:58 88 75/57 L 03/05/21 08:57 36.4 C 83 22 H 99/71 100 - My Orders Last 24 Hours: My Active Orders 03/05/21 09:13 Saline Lock Insert [OM.PC] Stat 03/05/21 09:17 CULTURE URINE [RM] Stat - Assessment/Plan Last 24 Hours: My Active Orders 03/05/21 09:13 Saline Lock Insert [OM.PC] Stat 03/05/21 09:17 CULTURE URINE [RM] Stat Assessment:: 1)Anxiety 2)Severe Dehydration 3)Diarrhea Plan: See Above
[2021-03-05 13:10] VITALS: BP 88/61; PULSE 78
== END 2021-03-05 10:45 | disposition critical access hospital (66) ==
LOC: VM.ED 08:52
DX: R19.7 Diarrhea, unspecified (principal); E86.0 Dehydration; F41.9 Anxiety disorder, unspecified; J44.9 Chronic obstructive pulmonary disease, unspecified; Z72.0 Tobacco use; Z79.899 Other long term (current) drug therapy; Z20.822 Contact with and (suspected) exposure to COVID-19
CPT/HCPCS: 80053; 81001; 82150; 83605; 83690; 83735; 84443; 84484; 85025; 86140; 87086; 93005; 93010; 96374; 96375; 99284; 99285-25; A9270-GY; J1885; J2405; J7120; U0002

== ENCOUNTER 2021-03-06 06:34 | Observation (INO) | payer MEDICAID ==
[2021-03-06] MEDS ORDERED: Sodium Chloride 0.9% 1,000 ML IV ONE (06:39)
[2021-03-06] MEDS ORDERED: Lactated Ringers 1,000 ML IV ONE ×2 (06:39→15:47)
[2021-03-06] MEDS ORDERED: Ondansetron 4 MG/2 ML SDV IVPUSH ONE (06:39)
[2021-03-06] MEDS ORDERED: Sodium Chloride 0.9% 10 ML Syringe FLUSH PRN ×2 (06:39→09:24)
[2021-03-06] MEDS ORDERED: LORazepam 2 MG/ML SDV IVPUSH ONE (06:39)
--- NOTE | 2021-03-06 06:43 | EDM.PDOC ---
ED HPI GENERAL MEDICAL PROBLEM - General Chief Complaint: General Stated Complaint: Weakness Time Seen by Provider: 03/06/21 06:38 Source of Information: Reports: Patient, EMS, EMS Notes Reviewed - History of Present Illness INITIAL COMMENTS - FREE TEXT/NARRATIVE: Lorena is a 65 y/o female who is brought to the ER via EMS with weakness. She was seen yesterday in the ER for the same symptoms, but left AMA prior to treatment being complete. She reports less diarrhea today, but she is very unsteady and weak when she is up. Yesterday she was quite dehydrated following several bouts of diarrhea. She is also very anxious. She reports that she did not take her meds yesterday. She did eat an egg early this AM. - Related Data Allergies Allergy/AdvReac Type Severity Reaction Status Date / Time No Known Allergies Allergy Verified 03/06/21 06:37 Home Meds: Home Meds Tiotropium [Spiriva Handihaler] 18 mcg INH DAILY 09/15/14 [History] ClonazePAM [KlonoPIN] 1 mg PO BEDTIME 10/12/16 [History] Omeprazole 20 mg PO BIDAC 10/12/16 [History] Albuterol [Ventolin HFA] 1 puff INH Q4H PRN 03/25/17 [History] Fluticasone Propionate [Flonase] 1 spray NASBOTH BID 03/25/17 [History] DULoxetine [Cymbalta] 120 mg PO DAILY 11/02/18 [History] Vitamin B Complex 1 cap PO DAILY 11/02/18 [History] oxyCODONE HCl/Acetaminophen [Percocet 5-325 mg Tablet] 1 tab PO BID PRN 08/13/19 [History] Ergocalciferol (Vitamin D2) [Vitamin D2] 50,000 unit PO Q7D 09/28/19 [History] Pramipexole [Mirapex] 0.125 mg PO TID tablet 09/29/19 [Rx] Budesonide/Formoterol Fumarate [Symbicort 80-4.5 MCG] 2 puff INH BID 02/23/20 [History] Docusate Sodium [Colace] 100 mg PO DAILY 02/23/20 [History] LORazepam [Ativan] 1 mg PO DAILY PRN 02/23/20 [History] Lidocaine [Lidoderm] 1 each TP DAILY 02/23/20 [History] Linaclotide [Linzess] 290 mcg PO DAILY PRN 02/23/20 [History] Multivitamin 1 each PO BEDTIME 02/23/20 [History] Propylene Glycol/PEG 400/Pf [Systane 0.3-0.4% Eye Drop] 1 drop EYEBOTH Q4HR PRN 02/23/20 [History] Psyllium [Metamucil] 1 gm PO DAILY 02/23/20 [History] Saliva Stimulant Comb. No.2 [Biotene Oralbalance] 1 spray PO ASDIRECTED PRN 02/23/20 [History] atoMOXetine [Strattera] 80 mg PO DAILY 02/23/20 [History] docosanoL [Abreva 10%] 1 applic TOP DAY 02/23/20 [History] polyethylene glycoL 3350 [MiraLAX] 1 dose PO TID PRN 02/23/20 [History] QUEtiapine Fumarate [Seroquel] 400 mg PO BEDTIME 03/17/20 [History] lamoTRIgine [Lamotrigine] 100 mg PO DAILY 03/17/20 [History] Ondansetron [Zofran ODT] 4 mg PO Q6H PRN #10 tab.dis 04/06/20 [Rx] Past Medical History HEENT History: Other HEENT History: HEARING LOSS. LEUKOPLAKIA OF ORAL CAVITY. 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 OSTEOPENIA. OSTEOMYELITIS. INJURY OF RIGHT KNEE MENISCUS . SACROILIAC JOINT DISEASE. DDD Neurological History: Reports: Other (See Below) Other Neuro History: ABSCESS IN EPIDURAL SPACE OF THORACIC SPINE. RLS Psychiatric History: Reports: ADHD, Anxiety, Depression, Eating Disorders Other Psychiatric History: HX ALCOHOL ABUSE - QUIT 2008 Endocrine/Metabolic History: Reports: Other (See Below) Other Endocrine/Metabolic History: HYPOVITAMINOSIS D Dermatologic History: Reports: Other (See Below) Other Dermatologic History: LIPOMA - Infectious Disease History Infectious Disease History: Reports: C-Difficile Other Infectious Disease History: States she had c-diff a year ago and is not currently having any loose stools - Past Surgical History Head Surgeries/Procedures: Reports: None Other HEENT Surgeries/Procedures: poor historian Female Surgical History: Reports: Breast Biopsy, Tubal Ligation, Other (See Below) Other Female Surgeries/Procedures: BREAST SURGERY - Neurological Surgical History: Reports: Laminectomy Musculoskeletal Surgical History: Reports: Other (See Below) Other Musculoskeletal Surgeries/Procedures:: HARDWARE REMOVAL OF LEFT ELBOW - 2017. BACK SURGERY Social & Family History - Family History Family Medical History: No Pertinent Family History - Caffeine Use Caffeine Use: Reports: None Other Caffeine Use: Drinks coffee every once in a while ED ROS GENERAL - Review of Systems Review Of Systems: See Below Constitutional: Reports: Chills, Weakness, Decreased Appetite HEENT: Reports: No Symptoms Respiratory: Reports: No Symptoms Cardiovascular: Reports: No Symptoms Endocrine: Reports: No Symptoms GI/Abdominal: Reports: Diarrhea, Nausea : Reports: No Symptoms Musculoskeletal: Reports: No Symptoms Skin: Reports: No Symptoms Neurological: Reports: Weakness Psychiatric: Reports: Anxiety Hematologic/Lymphatic: Reports: No Symptoms Immunologic: Reports: No Symptoms ED EXAM, GENERAL - Physical Exam Exam: See Below General Appearance: Alert, WD/WN, No Apparent Distress, Anxious (Elderly female she is tearful anf quite anxious.) Ears: Hearing Grossly Normal Nose: Normal Inspection Throat/Mouth: Normal Inspection, Normal Lips, Normal Voice Head: Atraumatic, Normocephalic Neck: Normal Inspection, Supple Respiratory/Chest: No Respiratory Distress, Lungs Clear, Chest Non-Tender Cardiovascular: Normal Peripheral Pulses, Regular Rate, Rhythm, No Murmur GI/Abdominal: Normal Bowel Sounds, Soft, Non-Tender, No Distention (Female) Exam: Deferred Rectal (Female) Exam: Deferred Back Exam: Normal Inspection Extremities: Normal Inspection, Normal Range of Motion, No Pedal Edema, Normal Capillary Refill Neurological: Alert, Oriented, CN II-XII Intact Psychiatric: Anxious, Tearful Skin Exam: Warm, Dry, Intact, Normal Color Course - Vital Signs Text/Narrative:: 0636 The patient was seen by the IMPLEMENTATION LEAD. Labs ordered. She was given IV fluids and Zofran 4mg IVP. Also given Lorazepam 1 mg IVP for anxiety. 0735 Patient crying and anxious. States can't lay down on her back. RN found patient had pulled off the microphone above the bed to the [employer] system. Haldol 5mg IVP given. Obtaining additional labs in consideration of psych admission. 0847 Patient resting now. She reports still feeling "weak". Suspect symptoms more psych in nature and that she has nt been taking her meds. Will admit to [facility] serv[facility] for IV fluids, med management, and serial labs. See admission orders. Last Recorded V/S: Last Vital Signs Temp 36.8 C 03/06/21 08:17 Pulse 73 03/06/21 08:17 Resp 18 03/06/21 08:17 BP 135/51 L 03/06/21 08:17 Pulse Ox 100 03/06/21 08:17 - Orders/Labs/Meds Orders: Active Orders 24 hr Category Date Time Status SALICYLATE [REF] Stat Lab 03/06/21 06:55 Received Sodium Chloride 0.9% [Saline Flush] Med 03/06/21 06:39 Active 10 ml FLUSH ASDIRECTED PRN Saline Lock Insert [OM.PC] Stat Oth 03/06/21 06:39 Ordered Medication Orders Sodium Chloride (Sodium Chloride 0.9% 10 Ml Syringe) 10 ml FLUSH ASDIRECTED PRN PRN Reason: Keep Vein Open Labs: Laboratory Tests 03/06/21 03/06/21 03/06/21 Range/Units 06:55 06:55 06:55 WBC 4.6 (4.0-10.0) x10^3/uL RBC 4.04 (4.00-5.50) x10^6/uL Hgb 13.2 D (12.0-16.0) g/dL Hct 37.4 (33.0-47.0) % MCV 92.6 (78.0-93.0) fL MCH 32.7 H (26.0-32.0) pg MCHC 35.3 (32.0-36.0) g/dL RDW Coeff of Gordon 12.3 (10.0-15.0) % Plt Count 125 L (130-400) x10^3/uL Neut % (Auto) 53.5 (50.0-80.0) % Lymph % (Auto) 37.3 (25.0-50.0) % Faulk % (Auto) 7.3 (2.0-11.0) % Eos % (Auto) 1.5 (0.0-4.0) % Baso % (Auto) 0.4 (0.2-1.2) % Sodium 140 (136-145) mmol/L Potassium 3.8 (3.5-5.1) mmol/L Chloride 110 H (98-107) mmol/L Carbon Dioxide 25 (21-32) mmol/L Anion Gap 8.8 (5-15) mmol/L BUN 48 H (7-18) mg/dL Creatinine 1.4 H (0.55-1.02) mg/dL Est Cr Clr Drug Dosing TNP Estimated GFR (MDRD) 38 Glucose 71 (70-99) mg/dL Calcium 8.4 L (8.5-10.1) mg/dL Corrected Calcium 9.0 (8.5-10.1) mg/dL Magnesium 2.0 (1.8-2.4) mg/dL Total Bilirubin 0.1 L (0.2-1.0) mg/dL AST 13 L (15-37) U/L ALT 22 (14-59) U/L Alkaline Phosphatase 73 (46-116) U/L C-Reactive Protein < 0.2 (<=0.9) mg/dL Total Protein 5.8 L (6.4-8.2) g/dL Albumin 3.2 L (3.4-5.0) g/dL Globulin 2.6 Albumin/Globulin Ratio 1.23 Amylase 58 (25-115) U/L Lipase 145 (73-393) U/L TSH, Ultra Sensitive 1.038 (0.358-3.74) uIU/mL Urine Color (YELLOW) Urine Appearance (CLEAR) Urine pH (5.0-8.0) Ur Specific Vernon Urine Protein (NEGATIVE) mg/dL Urine Glucose (UA) (NEGATIVE) mg/dL Urine Ketones (NEGATIVE) mg/dL Urine Occult Blood (NEGATIVE) Urine Nitrite (NEGATIVE) Urine Bilirubin (NEGATIVE) Urine Urobilinogen (0.2) EU/dL Ur Leukocyte Esterase (NEGATIVE) Urine Opiates Screen (NEGATIVE) Ur Buprenorphine Scrn (NEGATIVE) Ur Oxycodone Screen (NEGATIVE) Urine Methadone Screen (NEGATIVE) Acetaminophen 16 (10-30) ug/ml Ur Barbituates Screen (NEGATIVE) Ur Phencyclidine Scrn (NEGATIVE) Ur Amphetamines Screen (NEGATIVE) U Methamphetamines Scrn (NEGATIVE) Urine MDMA Screen (NEGATIVE) U Benzodiazepines Scrn (NEGATIVE) Urine Cocaine Screen (NEGATIVE) U Marijuana (THC) Screen (NEGATIVE) Ethyl Alcohol < 3 (0-3) mg/dL 03/06/21 03/06/21 Range/Units 07:00 07:00 WBC (4.0-10.0) x10^3/uL RBC (4.00-5.50) x10^6/uL Hgb (12.0-16.0) g/dL Hct (33.0-47.0) % MCV (78.0-93.0) fL MCH (26.0-32.0) pg MCHC (32.0-36.0) g/dL RDW Coeff of Gordon (10.0-15.0) % Plt Count (130-400) x10^3/uL Neut % (Auto) (50.0-80.0) % Lymph % (Auto) (25.0-50.0) % Faulk % (Auto) (2.0-11.0) % Eos % (Auto) (0.0-4.0) % Baso % (Auto) (0.2-1.2) % Sodium (136-145) mmol/L Potassium (3.5-5.1) mmol/L Chloride (98-107) mmol/L Carbon Dioxide (21-32) mmol/L Anion Gap (5-15) mmol/L BUN (7-18) mg/dL Creatinine (0.55-1.02) mg/dL Est Cr Clr Drug Dosing Estimated GFR (MDRD) Glucose (70-99) mg/dL Calcium (8.5-10.1) mg/dL Corrected Calcium (8.5-10.1) mg/dL Magnesium (1.8-2.4) mg/dL Total Bilirubin (0.2-1.0) mg/dL AST (15-37) U/L ALT (14-59) U/L Alkaline Phosphatase (46-116) U/L C-Reactive Protein (<=0.9) mg/dL Total Protein (6.4-8.2) g/dL Albumin (3.4-5.0) g/dL Globulin Albumin/Globulin Ratio Amylase (25-115) U/L Lipase (73-393) U/L TSH, Ultra Sensitive (0.358-3.74) uIU/mL Urine Color Yellow (YELLOW) Urine Appearance Clear (CLEAR) Urine pH 7.0 (5.0-8.0) Ur Specific Vernon 1.015 Urine Protein Negative (NEGATIVE) mg/dL Urine Glucose (UA) Negative (NEGATIVE) mg/dL Urine Ketones Negative (NEGATIVE) mg/dL Urine Occult Blood Negative (NEGATIVE) Urine Nitrite Negative (NEGATIVE) Urine Bilirubin Negative (NEGATIVE) Urine Urobilinogen 0.2 (0.2) EU/dL Ur Leukocyte Esterase Negative (NEGATIVE) Urine Opiates Screen Negative (NEGATIVE) Ur Buprenorphine Scrn Negative (NEGATIVE) Ur Oxycodone Screen Positive H (NEGATIVE) Urine Methadone Screen Negative (NEGATIVE) Acetaminophen (10-30) ug/ml Ur Barbituates Screen Negative (NEGATIVE) Ur Phencyclidine Scrn Negative (NEGATIVE) Ur Amphetamines Screen Negative (NEGATIVE) U Methamphetamines Scrn Negative (NEGATIVE) Urine MDMA Screen Negative (NEGATIVE) U Benzodiazepines Scrn Negative (NEGATIVE) Urine Cocaine Screen Negative (NEGATIVE) U Marijuana (THC) Screen Negative (NEGATIVE) Ethyl Alcohol (0-3) mg/dL Meds: Medications Generic Name Dose Route Start Last Admin Trade Name Freq PRN Reason Stop Dose Admin Sodium Chloride 10 ml 03/06/21 06:39 Sodium Chloride 0.9% 10 Ml Syringe FLUSH ASDIRECTED PRN Keep Vein Open Discontinued Medications Generic Name Dose Route Start Last Admin Trade Name Freq PRN Reason Stop Dose Admin Haloperidol Lactate 5 mg 03/06/21 07:38 03/06/21 07:51 Haloperidol Lactate 5 Mg/Ml Sdv IV 03/06/21 07:39 5 mg ONETIME ONE Administration Sodium Chloride 1,000 mls @ 999 mls/hr 03/06/21 06:39 Normal Saline IV 03/06/21 07:39 ONETIME ONE Lactated Ringer's 1,000 mls @ 999 mls/hr 03/06/21 06:39 03/06/21 07:05 Ringers, Lactated IV 03/06/21 07:39 999 mls/hr ONETIME ONE Administration Lorazepam 1 mg 03/06/21 06:39 03/06/21 07:05 Lorazepam 2 Mg/Ml Sdv IVPUSH 03/06/21 06:40 1 mg STAT ONE Administration Ondansetron HCl 4 mg 03/06/21 06:39 03/06/21 07:05 Ondansetron 4 Mg/2 Ml Sdv IVPUSH 03/06/21 06:40 4 mg ONETIME ONE Administration Departure - Departure Time of Disposition: 08:50 Disposition: DC/Tfer W/I Hosp To Swing 61 Condition: Good Clinical Impression: Dehydration, Anxiety, Renal insufficiency Psychosis Qualifiers: Psychosis type: unspecified psychosis type Qualified Code(s): F29 - Unspecified psychosis not due to a substance or known physiological condition - Discharge Information Referrals: Delmy Burrell DO [Primary Care Provider] - Forms: ED Department Discharge Sepsis Event Note (ED) - Focused Exam Vital Signs: Vital Signs Temp Pulse Resp BP Pulse Ox 03/06/21 08:17 36.8 C 73 18 135/51 L 100 - Problem List & Annotations (1) Weakness SNOMED Code(s): 63625998 Code(s): R53.1 - WEAKNESS Status: Acute Current Visit: No Annotation/Comment:: -Suspect symptoms of weakness more related to psych issues, but noted to have elevated BUN and 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 Levels were improved today, but will continue IV fluids and repeat labs in the AM. (2) Renal insufficiency SNOMED Code(s): 975899485, 084427356 Code(s): N28.9 - DISORDER OF KIDNEY AND URETER, UNSPECIFIED Status: Acute Current Visit: Yes Annotation/Comment:: -BUN=48, Customer Operations Manager=1.4 -Will BMP in the AM (3) Anxiety SNOMED Code(s): 47099023 Code(s): F41.9 - ANXIETY DISORDER, UNSPECIFIED Status: Chronic Priority: Medium Current Visit: Yes Annotation/Comment:: -Suspect symptoms due to poor med compliance. Will ensure meds given while on Observation. (4) Psychosis SNOMED Code(s): 82444131 Code(s): F29 - UNSP PSYCHOSIS NOT DUE TO A SUBSTANCE OR KNOWN PHYSIOL COND Status: Acute Current Visit: Yes Annotation/Comment:: -Will monitor need for prn meds. -She was given Haldol 5mg IV in the ER and was able to rest and stopped crying. -Will address as needed Qualifiers: Psychosis type: unspecified psychosis type Qualified Code(s): F29 - Unspecified psychosis not due to a substance or known physiological condition (5) Poor compliance with medication SNOMED Code(s): 895755048 Code(s): Z91.14 - PATIENT'S OTHER NONCOMPLIANCE WITH MEDICATION REGIMEN Status: Acute Current Visit: No Annotation/Comment:: -Will assist with meds -environmental services worker/Case Management to see while on Observation for any home needs - Problem List Review Problem List Initiated/Reviewed/Updated: Yes - My Orders Last 24 Hours: My Active Orders 03/06/21 06:39 Sodium Chloride 0.9% [Saline Flush] 10 ml FLUSH ASDIRECTED PRN Saline Lock Insert [OM.PC] Stat 03/06/21 06:55 SALICYLATE [REF] Stat - Assessment/Plan Admission H&P: Please use this note as an admission H&P Last 24 Hours: My Active Orders 03/06/21 06:39 Sodium Chloride 0.9% [Saline Flush] 10 ml FLUSH ASDIRECTED PRN Saline Lock Insert [OM.PC] Stat 03/06/21 06:55 SALICYLATE [REF] Stat Assessment:: 1)Weakness 2)Anxiety 3)Psychosis 4)Hx Poor Compliance to Medications Plan: -Admit to Observation
[2021-03-06 07:22] LABS: CHLORIDE,CL 110 mmol/L (98-107); SODIUM,NA 140 mmol/L (136-145)
[2021-03-06 07:24] LABS: ANION GAP 8.8 mmol/L (5-15)
[2021-03-06] MEDS ORDERED: Haloperidol Lactate 5 MG/ML SDV IV ONE (07:38)
[2021-03-06 08:02] LABS: BUPRENORPHINE,URINE NEGATIVE (NEGATIVE); MARIJUANA,URINE NEGATIVE (NEGATIVE); METHYLENEDIOXYMETHAMP,UR NEGATIVE (NEGATIVE); PHENCYCLIDINE,URINE NEGATIVE (NEGATIVE)
[2021-03-06 08:16] LABS: ACETAMINOPHEN 16 ug/ml (10-30)
[2021-03-06] MEDS ORDERED: Ondansetron 4 MG Tab.DIS PO PRN ×2 (09:24→18:47)
[2021-03-06] MEDS ORDERED: Sodium Chloride 0.9% 1,000 ML IV SCH (09:30)
[2021-03-06] MEDS: Sodium Chloride 0.9% 1,000 ML IV SCH ×3 (11:55→22:03)
[2021-03-06 15:34] LABS: ANION GAP 8.1 mmol/L (5-15)
--- NOTE | 2021-03-06 17:52 | PCM.PRNOTE ---
- Free Text/Narrative Note: -Discussed case with Dr Delmy Burrell who will assume care of the patient in the AM.
[2021-03-06] MEDS ORDERED: Cyclobenzaprine 10 MG Tab PO PRN (18:47)
[2021-03-06] MEDS ORDERED: Polyethylene Glycol 3350 Powder 17 GM Packet PO PRN (18:47)
[2021-03-06] MEDS ORDERED: Ergocalciferol (Vitamin D2) 1.25 MG Cap PO SCH (19:00)
[2021-03-06] MEDS: Pramipexole 0.125 MG Tab PO SCH (19:39)
[2021-03-06] MEDS: ClonazePAM 0.5 MG Tab PO SCH (19:40)
[2021-03-06] MEDS: Acetaminophen/oxyCODONE 325-5 MG Tab PO PRN (19:40)
[2021-03-06] MEDS ORDERED: BUDESONIDE INH SCH (20:00)
[2021-03-06] MEDS ORDERED: Non-Formulary Medication 1 Each (Fluticasone Propionate [Flonase] 16 GM Bottle) NASBOTH SCH (20:00)
[2021-03-06] MEDS ORDERED: FORMOTEROL FUMARATE INH SCH (20:00)
[2021-03-06] MEDS ORDERED: Multivitamins with Iron/Calcium/Folic Acid/Minerals Tab PO SCH (20:00)
[2021-03-06] MEDS ORDERED: traZODone 50 MG Tab PO SCH (20:00)
[2021-03-06] MEDS ORDERED: Topiramate 50 MG Tab PO SCH (20:00)
[2021-03-07] MEDS: Sodium Chloride 0.9% 1,000 ML IV SCH ×2 (02:18→06:24)
[2021-03-07] MEDS ORDERED: Omeprazole 20 MG Cap.CR PO SCH (07:00)
[2021-03-07] MEDS ORDERED: Calcium Carbonate 750 MG Tab.Chew PO ONE (07:27)
[2021-03-07] MEDS: Pramipexole 0.125 MG Tab PO SCH ×2 (07:47→12:21)
[2021-03-07] MEDS: ClonazePAM 0.5 MG Tab PO SCH (07:47)
[2021-03-07] MEDS ORDERED: Non-Formulary Medication 1 Each (Tiotropium [Spiriva Handihaler] 18 MCG Kit) INH SCH (08:00)
[2021-03-07] MEDS ORDERED: Potassium Chloride 20 MEQ Tab.ER PO SCH (08:00)
[2021-03-07] MEDS ORDERED: DULoxetine 60 MG Cap PO SCH (08:00)
[2021-03-07] MEDS ORDERED: Hypromellose 0.3% Ophth Soln 15 ML Bottle EYEBOTH PRN (08:42)
[2021-03-07] MEDS ORDERED: Calcium Carbonate/Vitamin D3 1250 MG-5 MCG Tab PO SCH (08:45)
[2021-03-07] MEDS ORDERED: Lidocaine 4% 1 each Patch TOP SCH ×2 (10:00)
[2021-03-07] MEDS ORDERED: Nicotine 14 MG/24 Hr Patch TRDERM SCH (11:00)
[2021-03-07] MEDS: Acetaminophen/oxyCODONE 325-5 MG Tab PO PRN (12:24)
[2021-03-07 13:50] LABS: ANION GAP 9.1 mmol/L (5-15)
[2021-03-07 14:06] VITALS: BP 113/56; PULSE 56
--- NOTE | 2021-03-07 16:41 | DISCH ---
PRIMARY DISCHARGE DIAGNOSES: 1. Acute renal failure due to volume depletion from diarrhea. 2. Known history of bulimia with recent laxative abuse leading to diarrhea. 3. Chronic anxiety and depression, following with Psych. 4. Chronic back pain, followed by the Pain [facility], on intermittent oxycodone. 5. Hypocalcemia, pseudo, with corrected calcium improved to 7.9. 6. Moderate malnutrition. Albumin down to 2.4 at its lowest. 7. Weakness, likely due to the dehydration and low calcium, improving. She is up walking around in the halls, doing well on discharge. 8. Hypotension due to the volume depletion, improved with IV fluids. She did receive several boluses of IV LR (Intake 6.8 L, output 4.5 L on her stay) REASON FOR ADMISSION: On the date of admission, this 65-year-old female who had been in the ER on the previous day but left AMA with a creatinine up to 1.6, returned on the . Her creatinine was down to 1.4, but her blood pressures were extremely low like 67/32. She was not found to have any infection. She did not have any fever or chills. She was not coughing. Her urine did not show infection. She had a lactic that was normal. She was admitted. She was given IV fluids and her condition did improve. She was placed on the observation status, and by the next hospital morning, she was doing better, but had not received her regular calcium doses due to pharmacy pending status. Therefore, did receive a 1500 mg dose of calcium with repeat levels in the afternoon and corrected calcium was up to 7.9. The patient's creatinine was down to 1.0 on discharge. PHYSICAL EXAMINATION: Vital Signs: Her blood pressure, discharging vitals, it was 113/56; temperature 98.2, pulse 56, respiratory rate 18, O2 of 98% on room air. General: She is in no acute distress. Heart: Regular rate and rhythm. S1, S2 without murmur. Lungs: Sounds are clear to auscultation bilaterally without crackles or wheezes. Abdomen: Nondistended, nontender. Extremities: Warm and dry. No edema. Mental Status: Alert and orientated x3. She was a little tearful in the morning, but much more calm. She was not having any signs of self-harm or suicidal ideation. She never had any further diarrhea in the hospital because she was not getting laxatives. The patient did get her last 1 oxycodone pill last around noon today. She normally takes them twice daily as needed for pain. Her last refill was in January and she has only 1 pill left at home, so I did agree to refill that today. DISCHARGE PLANS AND INSTRUCTIONS: She will follow up in the clinic on 03/13 as previously scheduled. She will recheck with the Pain Clinic. They are trying to move her appointment up to next week. She will be on her calcium, make sure to take 600 twice daily at home and her vitamin D. She will avoid laxatives unless needed for constipation. The patient also has followup with her regular psych provider and she had recently been taken off Ativan, but still has Klonopin and she does think that this could have contributed somewhat to her symptoms and then also some falls at home, which had increased her back pain, but on exam, I was not noting any bruising or crepitus, it was her low back. No sign or concerns for rib fractures. She was breathing okay. No follow up lab work due for her follow up appt MKA: 03/07/2021 15:15:14 MODL: 03/07/2021 16:34:26 /[id number]
[2021-03-07] MEDS ORDERED: [UNRECOGNIZED DRUG - REMARK] TRDERM SCH (20:00)
== END 2021-03-07 15:30 | disposition home or self-care (01) ==
LOC: VM.ED 06:34 → VM.MS 08:48
PROVIDERS: ADMIT Nurse Practitioner Family; ATTEND Nurse Practitioner Family
DX: R53.1 Weakness (principal); N17.9 Acute kidney failure, unspecified; J44.9 Chronic obstructive pulmonary disease, unspecified; F29 Unspecified psychosis not due to a substance or known physiological condition; M54.9 Dorsalgia, unspecified; G89.29 Other chronic pain; E83.51 Hypocalcemia; I95.9 Hypotension, unspecified; Z79.899 Other long term (current) drug therapy; Z98.890 Other specified postprocedural states; Z20.822 Contact with and (suspected) exposure to COVID-19
CPT/HCPCS: 36415; 80048; 80053; 80143; 80179; 80305-QW; 80307; 81003; 82040; 82150; 83690; 83735; 84443; 85025; 86140; 96374; 96375; 97161-GP; 99220; 99285-25; A9270-GY; G0378; J1630; J2060; J2405; J7030; J7120; U0002

== ENCOUNTER 2021-03-08 17:00 | Emergency (ER) | payer MEDICAID ==
[2021-03-08] MEDS ORDERED: hydrOXYzine HCl 25 MG Tab PO ONE (17:05)
[2021-03-08] MEDS ORDERED: Ibuprofen 200 MG Tab PO STA (17:05)
--- NOTE | 2021-03-08 17:12 | EDM.PDOC ---
ED HPI GENERAL MEDICAL PROBLEM - General Chief Complaint: Chest Pain Stated Complaint: CHEST PAIN Time Seen by Provider: 03/08/21 17:00 Source of Information: Reports: Patient History Limitations: Reports: No Limitations - History of Present Illness INITIAL COMMENTS - FREE TEXT/NARRATIVE: Patient comes in the emergency department with concerns of left sided chest discomfort. Patient states that she has left-sided breast discomfort especially when taking a deep breath or rubbing over the area. Patient states that she was at water aerobics for the first time in a week today and did a lot of strenuous activity after the activity she started having discomfort in the left breast area. She states it is reproducible and palpable as well as taking a deep breath as stated above. Patient denies any shortness of breath dizziness, nausea, lightheaded, blurred vision, fever, or genitourinary concerns. Onset: Sudden Quality: Reports: Other Severity: Mild Improves with: Reports: Rest Worsens with: Reports: Movement Context: Reports: Other Associated Symptoms: Reports: No Other Symptoms - Related Data Allergies Allergy/AdvReac Type Severity Reaction Status Date / Time No Known Allergies Allergy Verified 03/06/21 06:37 Home Meds: Home Meds Tiotropium [Spiriva Handihaler] 1 cap INH DAILY 09/15/14 [History] Fluticasone Propionate [Flonase] 1 spray NASBOTH BID 03/25/17 [History] oxyCODONE HCl/Acetaminophen [Percocet 5-325 mg Tablet] 1 tab PO BID PRN 08/13/19 [History] Ergocalciferol (Vitamin D2) [Vitamin D2] 50,000 unit PO Q14D 09/28/19 [History] Budesonide/Formoterol Fumarate [Symbicort 80-4.5 MCG] 2 puff INH BID 02/23/20 [History] Linaclotide [Linzess] 290 mcg PO DAILY PRN 02/23/20 [History] Multivitamin 1 tab PO BEDTIME 02/23/20 [History] Propylene Glycol/PEG 400/Pf [Systane 0.3-0.4% Eye Drop] 1 drop EYEBOTH Q4HR PRN 02/23/20 [History] polyethylene glycoL 3350 [MiraLAX] 17 gram PO TID PRN 02/23/20 [History] Calcium Carbonate 600 mg PO BIDMEALS 03/06/21 [History] Cyclobenzaprine [Flexeril] 5 mg PO TID PRN 03/06/21 [History] DULoxetine [Cymbalta] 120 mg PO DAILY 03/06/21 [History] Denosumab [Prolia] 60 mg SUBCUT Q180D 03/06/21 [History] Lidocaine 5% [Lidoderm 5%] 2 patch TOP DAILY 03/06/21 [History] Omeprazole 20 mg PO BIDAC 03/06/21 [History] Potassium Chloride 20 meq PO DAILY 03/06/21 [History] Pramipexole [Mirapex] 0.125 mg PO QID 03/06/21 [History] Topiramate [Topamax] 200 mg PO BEDTIME 03/06/21 [History] clonazePAM [Clonazepam] 1 mg PO BID 03/06/21 [History] ondansetron HCL [Ondansetron HCl] 4 mg PO Q6H PRN 03/06/21 [History] traZODone HCl [Trazodone HCl] 300 mg PO BEDTIME 03/06/21 [History] Past Medical History HEENT History: Other HEENT History: HEARING LOSS. LEUKOPLAKIA OF ORAL CAVITY. 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 OSTEOPENIA. OSTEOMYELITIS. INJURY OF RIGHT KNEE MENISCUS. SACROILIAC JOINT DISEASE. DDD Neurological History: Reports: Other (See Below) Other Neuro History: ABSCESS IN EPIDURAL SPACE OF THORACIC SPINE. RLS Psychiatric History: Reports: ADHD, Addiction, Anxiety, Depression, Eating Disorders, Panic Attack Other Psychiatric History: HX ALCOHOL ABUSE - QUIT 2009 Endocrine/Metabolic History: Reports: Other (See Below) Other Endocrine/Metabolic History: HYPOVITAMINOSIS D Dermatologic History: Reports: Other (See Below) Other Dermatologic History: LIPOMA - Infectious Disease History Infectious Disease History: Reports: C-Difficile Other Infectious Disease History: States she had c-diff a year ago and is not currently having any loose stools - Past Surgical History Head Surgeries/Procedures: Reports: None Other HEENT Surgeries/Procedures: poor historian Female Surgical History: Reports: Breast Biopsy, Tubal Ligation, Other (See Below) Other Female Surgeries/Procedures: BREAST SURGERY - Neurological Surgical History: Reports: Laminectomy Musculoskeletal Surgical History: Reports: Other (See Below) Other Musculoskeletal Surgeries/Procedures:: HARDWARE REMOVAL OF LEFT ELBOW - 2017. BACK SURGERY Social & Family History - Family History Family Medical History: No Pertinent Family History - Caffeine Use Caffeine Use: Reports: None Other Caffeine Use: Drinks coffee every once in a while ED ROS GENERAL - Review of Systems Review Of Systems: Comprehensive ROS is negative, except as noted in HPI. Constitutional: Reports: No Symptoms HEENT: Reports: No Symptoms Respiratory: Reports: No Symptoms Cardiovascular: Reports: No Symptoms Endocrine: Reports: No Symptoms GI/Abdominal: Reports: No Symptoms : Reports: No Symptoms Musculoskeletal: Reports: Muscle Pain Skin: Reports: No Symptoms Neurological: Reports: No Symptoms Psychiatric: Reports: No Symptoms Hematologic/Lymphatic: Reports: No Symptoms Immunologic: Reports: No Symptoms ED EXAM, GENERAL - Physical Exam Exam: See Below Exam Limited By: No Limitations General Appearance: Alert, WD/WN, No Apparent Distress, Anxious Eye Exam: Bilateral Eye: EOMI, PERRL Nose: Normal Inspection, Normal Mucosa, No Blood Throat/Mouth: Normal Inspection, Normal Lips, No Airway Compromise Head: Atraumatic, Normocephalic Neck: Normal Inspection, Supple, Non-Tender Respiratory/Chest: No Respiratory Distress, Lungs Clear, Normal Breath Sounds, No Accessory Muscle Use, Chest Non-Tender Cardiovascular: Normal Peripheral Pulses, Regular Rate, Rhythm, Other (chest pain upon palpation and when taking deep breath on left lower breast region. Also, more pain noted with arm stretching above head. ) GI/Abdominal: Normal Bowel Sounds, Soft, Non-Tender, No Organomegaly, No Distention, No Abnormal Bruit Back Exam: Normal Inspection, Full Range of Motion Extremities: Normal Inspection, Normal Range of Motion, Non-Tender, No Pedal Edema, Normal Capillary Refill Neurological: Alert, Oriented, Normal Gait Psychiatric: Anxious Skin Exam: Warm, Dry, Intact #1 Interpretation EKG Date: 03/08/21 Rhythm: NSR Rate (Beats/Min): 62 [place]: Normal P-Wave: Present QRS: Normal ST-T: Normal QT: Normal Comparison: NA - No Prior EKG Course - Orders/Labs/Meds Meds: Medications Discontinued Medications Generic Name Dose Route Start Last Admin Trade Name Neris PRN Reason Stop Dose Admin Hydroxyzine HCl 50 mg 03/08/21 17:05 Hydroxyzine Hcl 25 Mg Tab PO 03/08/21 17:06 ONETIME ONE Ibuprofen 600 mg 03/08/21 17:05 Ibuprofen 200 Mg Tab PO 03/08/21 17:06 NOW STA Departure - Departure Time of Disposition: 17:30 Disposition: Home, Self-Care 01 Clinical Impression: Pleurisy without effusion - Discharge Information *PRESCRIPTION DRUG MONITORING PROGRAM REVIEWED*: Not Applicable *COPY OF PRESCRIPTION DRUG MONITORING REPORT IN PATIENT KEARA: Not Applicable Instructions: Pleurisy, [id number] Forms: ED Department Discharge Additional Instructions: 1. rest 2. increase your water intake 3. Continue all at home medications 4. Activity and diet as tolerated 5. Can take over the counter Tylenol for any pain or discomfort 6. Follow up with PCP if symptoms continue, return, or progress 7. Call with any questions or concerns - Assessment/Plan Assessment:: 1. pleurisy chest pain Plan: 1. EKG completed in the ER. results reviewed 2. Ibuprofen given in the ER 3. hydroxyzine given in the ER to help with nausea 4. Patient and nursing staff was updated regarding the plan of care 5. Education provided the patient regarding activity, diet, rest, [id number] medication modalities, and follow-up care was provided 6. Patient and family are agreeable to the above plan of care 7. All questions and concerns were addressed with the patient and family prior to discharge
[2021-03-08 17:28] VITALS: BP 130/67; PULSE 66
== END 2021-03-08 17:45 | disposition home or self-care (01) ==
LOC: VM.ED 17:00
DX: R09.1 Pleurisy (principal); J44.9 Chronic obstructive pulmonary disease, unspecified; Z79.899 Other long term (current) drug therapy
CPT/HCPCS: 93010; 99284; 99284-25; A9270-GY

== ENCOUNTER 2021-12-17 11:19 | Emergency (ER) | payer MEDICARE, MEDICAID ==
[2021-12-17 12:10] VITALS: BP 102/63; PULSE 94
== END 2021-12-17 13:20 | disposition home or self-care (01) ==
LOC: VM.ED 11:19
DX: S06.0X9A Concussion with loss of consciousness of unspecified duration, initial encounter (principal); S00.83XA Contusion of other part of head, initial encounter; J44.9 Chronic obstructive pulmonary disease, unspecified; Z79.899 Other long term (current) drug therapy; Z72.0 Tobacco use; W18.09XA Striking against other object with subsequent fall, initial encounter
CPT/HCPCS: 70450; 70486; 99283-25; 99284

== ENCOUNTER 2022-07-21 11:08 | Emergency (ER) | payer MEDICARE, MEDICAID ==
[2022-07-21] MEDS: LORazepam 2 MG/ML SDV IM ONE (11:32)
[2022-07-21 11:49] LABS: BARBITURATE SCREEN,URINE NEGATIVE (NEGATIVE); BENZODIAZEPINES SCREEN,URINE NEGATIVE (NEGATIVE); BUPRENORPHINE SCREEN,URINE NEGATIVE (NEGATIVE)
[2022-07-21 11:50] LABS: METHAMPHETAMINE SCREEN, URINE NEGATIVE (NEGATIVE)
[2022-07-21 11:51] LABS: THC SCREEN,URINE 50 NG/ML NEGATIVE (NEGATIVE)
[2022-07-21 12:00] VITALS: BP 103/69; PULSE 97
[2022-07-21 12:05] LABS: CHLORIDE,CL 106 mmol/L (98-107); SODIUM,NA 140 mmol/L (136-145)
[2022-07-21 12:14] LABS: ANION GAP 11.2 mmol/L (5-15); ESTIMATED GFR 50 mL/min (>=60)
[2022-07-21 12:18] LABS: ACETAMINOPHEN 0 ug/ml (10-30)
== END 2022-07-21 12:45 | disposition home or self-care (01) ==
LOC: VM.ED 11:08
DX: F41.9 Anxiety disorder, unspecified (principal); R45.851 Suicidal ideations; Z72.0 Tobacco use
CPT/HCPCS: 36415; 80053; 80143; 80179; 80305; 80307; 81001; 85025; 86140; 87086; 87088; 87186; 96372; 99284; J2060

== ENCOUNTER 2023-05-22 09:06 | Day surgery (SDC) | payer MEDICAID, MEDICARE ==
[~2023-05-22 09:06] MED LIST: Lactated Ringers 1,000 ML IV SCH
[2023-05-22] MEDS: Midazolam 1 MG/ML 2 ML SDV IVPUSH PRN ×3 (10:00→11:01)
[2023-05-22] MEDS ORDERED: Propofol 200 MG/20 ML SDV ONE ×2 (10:38→11:39)
[2023-05-22] MEDS ORDERED: Ondansetron 4 MG/2 ML SDV IV PRN (12:18)
[2023-05-22 13:08] VITALS: BP 110/69; PULSE 76
== END 2023-05-22 13:10 | disposition home or self-care (01) ==
LOC: VM.SDS 09:06
PROVIDERS: ATTEND Student in an Organized Health Care Education/Training Program
DX: Z12.11 Encounter for screening for malignant neoplasm of colon (principal); M81.0 Age-related osteoporosis without current pathological fracture; K58.9 Irritable bowel syndrome, unspecified; F32.A Depression, unspecified; F90.9 Attention-deficit hyperactivity disorder, unspecified type; G25.81 Restless legs syndrome; K59.03 Drug induced constipation; T40.2X5A Adverse effect of other opioids, initial encounter; F41.9 Anxiety disorder, unspecified; N18.30 Chronic kidney disease, stage 3 unspecified; M54.50 Low back pain, unspecified; G89.29 Other chronic pain; E66.9 Obesity, unspecified; Z79.899 Other long term (current) drug therapy; Z79.85 Long-term (current) use of injectable non-insulin antidiabetic drugs; Z79.51 Long term (current) use of inhaled steroids
CPT/HCPCS: 00812 ×2; G0121; J2250 ×3; J2405; J2704 ×2; J7120

== ENCOUNTER 2024-03-30 11:08 | Emergency (ER) | payer MEDICARE, MEDICAID ==
[2024-03-30 11:28] VITALS: BP 100/56; PULSE 94
[2024-03-30 11:58] LABS: BASOPHILS PERCENT AUTO 0.6 % (0.2-1.2); EOSINOPHILS ABSOLUTE AUTO 0.1 x10^3/uL (0.0-0.5); EOSINOPHILS PERCENT AUTO 1.5 % (0.0-4.0); HEMATOCRIT 43.9 % (33.0-47.0); HEMOGLOBIN 14.6 g/dL (12.0-16.0); IMMATURE GRAN ABSOLUTE AUTO 0.04 x10^3/uL (0.00-0.07); LYMPHOCYTES ABSOLUTE AUTO 1.1 x10^3/uL (1.0-4.8); LYMPHOCYTES PERCENT AUTO 20.9 % (25.0-50.0); MEAN CORPUSCULAR HEMOGLOBIN 30.8 pg (26.0-32.0); MEAN CORPUSCULAR HGB CONC 33.3 g/dL (32.0-36.0); MEAN CORPUSCULAR VOLUME 92.6 fL (78.0-93.0); MONOCYTES ABSOLUTE AUTO 0.3 x10^3/uL (0.0-0.8); MONOCYTES PERCENT AUTO 4.8 % (2.0-11.0); NEUTROPHILS ABSOLUTE AUTO 3.8 x10^3/uL (1.8-7.7); NEUTROPHILS PERCENT AUTO 71.4 % (50.0-80.0); PLATELET COUNT,PLT 176 x10^3/uL (130-400); RED BLOOD CELL COUNT 4.74 x10^6/uL (4.00-5.50); WHITE BLOOD CELL COUNT,WBC 5.3 x10^3/uL (4.0-10.0)
[2024-03-30 12:07] LABS: CREATININE 1.4 mg/dL (0.55-1.02); EST CRCL DRUG DOSING (CG) 35.09 mL/min
[2024-03-30 12:08] LABS: CORONAVIRUS COVID-19 NAA NEGATIVE (NEGATIVE); INFLUENZA A NAA NEGATIVE (NEGATIVE); INFLUENZA B NAA NEGATIVE (NEGATIVE); RESPIRATORY SYNCYTIAL VIR NAA NEGATIVE (NEGATIVE)
[2024-03-30 12:13] LABS: A/G RATIO 1.14; BILIRUBIN TOTAL 0.3 mg/dL (0.2-1.0); CALCIUM 9.7 mg/dL (8.5-10.1); PROTEIN TOTAL,TP 7.5 g/dL (6.4-8.2)
[2024-03-30 12:42] LABS: APPEARANCE,URINE CLEAR (CLEAR); BILIRUBIN,URINE NEGATIVE (NEGATIVE); COLOR,URINE YELLOW (YELLOW); GLUCOSE,URINE NEGATIVE (NEGATIVE); KETONES,URINE NEGATIVE (NEGATIVE); LEUKOCYTE ESTERASE,URINE NEGATIVE (NEGATIVE); NITRITE,URINE NEGATIVE (NEGATIVE); OCCULT BLOOD,URINE NEGATIVE (NEGATIVE); PH,URINE 7.5 (5.0-8.0); PROTEIN,URINE NEGATIVE (NEGATIVE); UROBILINOGEN,URINE 0.2 EU/dL (0.2)
[2024-03-30 12:45] LABS: BACTERIA,URINE RARE /HPF (NOT SEEN); MUCUS,URINE NOT SEEN /LPF (NOT SEEN); RBC,URINE 0-5 /HPF (NOT SEEN); SQUAMOUS EPITHELIAL CELLS,UR RARE /HPF (NOT SEEN); WBC,URINE 0-5 /HPF (NOT SEEN)
[2024-03-30] MEDS: Iopamidol 612 MG/ML 100 ML Bottle IVPUSH ONE (14:09)
== END 2024-03-30 14:05 | disposition home or self-care (01) ==
LOC: VM.ED 11:08 → SUPCPDRO 11:08 → VM.ED 14:05
DX: K52.9 Noninfective gastroenteritis and colitis, unspecified (principal); Z79.899 Other long term (current) drug therapy
CPT/HCPCS: 0241U; 36415; 74177; 80053; 81001; 83690; 85025; 99284; 99285; Q9967

== ENCOUNTER 2024-04-12 12:42 | Observation (INO) | payer MEDICARE, MEDICAID ==
[2024-04-12] MEDS: Sodium Chloride 0.9% 1,000 ML IV SCH (13:55)
[2024-04-12] MEDS ORDERED: Ondansetron 4 MG Tab.DIS PO PRN (14:01)
[2024-04-12] MEDS ORDERED: Ondansetron 4 MG/2 ML SDV IV PRN (14:01)
[2024-04-12] MEDS: Nicotine 14 MG/24 Hr Patch TRDERM SCH (14:45)
[2024-04-12 15:19] LABS: APPEARANCE,URINE CLEAR (CLEAR); BILIRUBIN,URINE NEGATIVE (NEGATIVE); COLOR,URINE LIGHT YELLOW (YELLOW); GLUCOSE,URINE NEGATIVE (NEGATIVE); KETONES,URINE NEGATIVE (NEGATIVE); LEUKOCYTE ESTERASE,URINE TRACE (NEGATIVE); NITRITE,URINE NEGATIVE (NEGATIVE); OCCULT BLOOD,URINE NEGATIVE (NEGATIVE); PROTEIN,URINE NEGATIVE (NEGATIVE); UROBILINOGEN,URINE 0.2 EU/dL (0.2)
[2024-04-12 15:23] LABS: BLOOD UREA NITROGEN,BUN 26 mg/dL (7-18); CALCIUM 9.7 mg/dL (8.5-10.1); CARBON DIOXIDE,CO2 35 mmol/L (21-32); CHLORIDE,CL 99 mmol/L (98-107); CREATININE 1.6 mg/dL (0.55-1.02); GLUCOSE RANDOM 73 mg/dL (70-99); POTASSIUM,K 4.2 mmol/L (3.5-5.1); SODIUM,NA 138 mmol/L (136-145)
[2024-04-12 15:24] LABS: ANION GAP 8.2 mmol/L (5-15); ESTIMATED GFR 35 mL/min (>=60)
[2024-04-12 15:27] LABS: RBC,URINE 0-5 /HPF (NOT SEEN); SQUAMOUS EPITHELIAL CELLS,UR OCCASIONAL /HPF (NOT SEEN)
[2024-04-12 15:29] LABS: BACTERIA,URINE OCCASIONAL /HPF (NOT SEEN); MUCUS,URINE OCCASIONAL /LPF (NOT SEEN)
[2024-04-12] MEDS ORDERED: Albuterol 0.083% 2.5 MG/3 ML Neb Soln INH PRN (15:49)
[2024-04-12] MEDS ORDERED: hydrOXYzine HCl 25 MG Tab PO PRN (15:49)
[2024-04-12] MEDS ORDERED: traZODone 50 MG Tab PO PRN (15:49)
[2024-04-12] MEDS ORDERED: Acetaminophen/oxyCODONE 325-5 MG Tab PO PRN (15:49)
[2024-04-12] MEDS ORDERED: Cyclobenzaprine 10 MG Tab PO PRN (16:53)
[2024-04-12] MEDS: SUMAtriptan 50 MG Tab PO ONE (17:04)
[2024-04-12] MEDS: Pramipexole 0.5 MG Tab PO SCH (17:06)
[2024-04-12] MEDS: Pantoprazole 40 MG Tab.CR PO SCH (17:07)
[2024-04-12] MEDS ORDERED: Lidocaine 4% 1 each Patch TOP PRN (17:07)
[2024-04-12] MEDS: Polyethylene Glycol 3350 Powder 17 GM Packet PO SCH (17:16)
[2024-04-12] MEDS ORDERED: LIDOCAINE PATCH TRDERM PRN (17:16)
[2024-04-12] MEDS: Metoclopramide 10 MG Tab PO SCH (19:22)
[2024-04-12] MEDS: traZODone 50 MG Tab PO SCH (21:03)
[2024-04-12] MEDS: Doxepin 25 MG Cap PO SCH (21:03)
[2024-04-12] MEDS: LORazepam 1 MG Tab PO SCH (21:04)
[2024-04-12] MEDS: busPIRone 15 MG Tab PO SCH (21:05)
[2024-04-12] MEDS: Fluticasone Propionate Nasal Spray 9.9 ML BOTTLE NASBOTH SCH (21:08)
[2024-04-12] MEDS: Ipratropium 0.06% Nasal Spray 15 ML Bottle NASBOTH SCH (21:09)
[2024-04-13 06:56] LABS: BASOPHILS PERCENT AUTO 0.9 % (0.2-1.2); EOSINOPHILS ABSOLUTE AUTO 0.1 x10^3/uL (0.0-0.5); EOSINOPHILS PERCENT AUTO 2.1 % (0.0-4.0); HEMATOCRIT 39.2 % (33.0-47.0); HEMOGLOBIN 13.1 g/dL (12.0-16.0); IMMATURE GRAN ABSOLUTE AUTO 0.01 x10^3/uL (0.00-0.07); LYMPHOCYTES ABSOLUTE AUTO 1.4 x10^3/uL (1.0-4.8); LYMPHOCYTES PERCENT AUTO 31.3 % (25.0-50.0); MEAN CORPUSCULAR HEMOGLOBIN 30.8 pg (26.0-32.0); MEAN CORPUSCULAR HGB CONC 33.4 g/dL (32.0-36.0); MEAN CORPUSCULAR VOLUME 92.2 fL (78.0-93.0); MONOCYTES ABSOLUTE AUTO 0.3 x10^3/uL (0.0-0.8); MONOCYTES PERCENT AUTO 7.1 % (2.0-11.0); NEUTROPHILS ABSOLUTE AUTO 2.5 x10^3/uL (1.8-7.7); NEUTROPHILS PERCENT AUTO 58.4 % (50.0-80.0); PLATELET COUNT,PLT 147 x10^3/uL (130-400); RED BLOOD CELL COUNT 4.25 x10^6/uL (4.00-5.50); WHITE BLOOD CELL COUNT,WBC 4.3 x10^3/uL (4.0-10.0)
[2024-04-13 07:12] LABS: CALCIUM 8.4 mg/dL (8.5-10.1); CREATININE 1.4 mg/dL (0.55-1.02); EST CRCL DRUG DOSING (CG) 35.09 mL/min; POTASSIUM,K 4.6 mmol/L (3.5-5.1)
[2024-04-13 07:13] LABS: ANION GAP 8.6 mmol/L (5-15)
[2024-04-13] MEDS: DULoxetine 60 MG Cap PO SCH (09:08)
[2024-04-13] MEDS: Famotidine 20 MG Tab PO SCH (09:10)
[2024-04-13] MEDS: Rosuvastatin 20 MG Tab PO SCH (09:11)
[2024-04-13] MEDS: (Linaclotide [Linzess] 290 MCG Capsule) PO SCH (10:07)
[2024-04-13] MEDS: UMECLIDIN PO SCH (10:07)
[2024-04-13] MEDS: VARENICLINE TARTRATE 1 MG PO SCH (10:07)
[2024-04-13] MEDS: FLUTICASONE PO SCH (10:07)
[2024-04-13] MEDS: VILANTER PO SCH (10:07)
[2024-04-13 10:09] VITALS: BP 124/70; PULSE 80
[2024-04-13] MEDS ORDERED: LORazepam 0.5 MG Tab PO SCH (15:00)
== END 2024-04-13 09:30 | disposition home or self-care (01) ==
LOC: VM.MS 13:22
PROVIDERS: ADMIT Internal Medicine; ATTEND Internal Medicine
DX: R55 Syncope and collapse (principal); K56.7 Ileus, unspecified; E87.5 Hyperkalemia; E83.52 Hypercalcemia; E86.0 Dehydration; K21.9 Gastro-esophageal reflux disease without esophagitis; J44.89 Other specified chronic obstructive pulmonary disease; E66.3 Overweight; F41.8 Other specified anxiety disorders; G25.81 Restless legs syndrome; G89.29 Other chronic pain; M54.9 Dorsalgia, unspecified; F17.210 Nicotine dependence, cigarettes, uncomplicated; Z68.29 Body mass index [BMI] 29.0-29.9, adult; Z79.899 Other long term (current) drug therapy
CPT/HCPCS: 36415; 80048; 81001; 82533; 82947; 85025; 87086; 87147; 96360; 96361; A9270-GY; G0378; G0379; J7030

== ENCOUNTER 2024-04-28 12:47 | Emergency (ER) | payer MEDICAID, MEDICARE ==
[2024-04-28 13:14] VITALS: BP 123/78; PULSE 95
[2024-04-28] MEDS: LORazepam 1 MG Tab PO ONE (13:30)
== END 2024-04-28 13:37 | disposition home or self-care (01) ==
LOC: VM.ED 12:47
DX: F41.9 Anxiety disorder, unspecified (principal); J44.9 Chronic obstructive pulmonary disease, unspecified; K21.9 Gastro-esophageal reflux disease without esophagitis; Z79.899 Other long term (current) drug therapy; Z79.51 Long term (current) use of inhaled steroids
CPT/HCPCS: 99283; 99284; A9270-GY

== ENCOUNTER 2024-07-30 10:30 | Emergency (ER) | payer MEDICARE, MEDICAID ==
[2024-07-30] MEDS: Albuterol/Ipratropium 3.0-0.5 MG/3 ML Neb Soln NEB ONE (10:50)
[2024-07-30] MEDS ORDERED: Sodium Chloride 0.9% 10 ML Syringe FLUSH PRN (10:51)
[2024-07-30 11:08] LABS: BASOPHILS PERCENT AUTO 0.2 % (0.2-1.2); EOSINOPHILS ABSOLUTE AUTO 0.1 x10^3/uL (0.0-0.5); EOSINOPHILS PERCENT AUTO 1.1 % (0.0-4.0); HEMATOCRIT 37.4 % (33.0-47.0); HEMOGLOBIN 12.8 g/dL (12.0-16.0); LYMPHOCYTES ABSOLUTE AUTO 1.4 x10^3/uL (1.0-4.8); LYMPHOCYTES PERCENT AUTO 14.3 % (25.0-50.0); MEAN CORPUSCULAR HEMOGLOBIN 29.6 pg (26.0-32.0); MEAN CORPUSCULAR HGB CONC 34.2 g/dL (32.0-36.0); MEAN CORPUSCULAR VOLUME 86.6 fL (78.0-93.0); MONOCYTES ABSOLUTE AUTO 0.5 x10^3/uL (0.0-0.8); MONOCYTES PERCENT AUTO 5.5 % (2.0-11.0); NEUTROPHILS ABSOLUTE AUTO 7.3 x10^3/uL (1.8-7.7); NEUTROPHILS PERCENT AUTO 76.8 % (50.0-80.0); PLATELET COUNT,PLT 192 x10^3/uL (130-400); RED BLOOD CELL COUNT 4.32 x10^6/uL (4.00-5.50); WHITE BLOOD CELL COUNT,WBC 9.5 x10^3/uL (4.0-10.0)
[2024-07-30] MEDS: methylPREDNISolone Sodium Succinate 125 MG/2 ML SDV IVPUSH ONE (11:13)
[2024-07-30 11:38] LABS: A/G RATIO 0.88; BILIRUBIN TOTAL 0.2 mg/dL (0.2-1.0); CALCIUM 8.2 mg/dL (8.5-10.1); CREATININE 1.3 mg/dL (0.55-1.02); EST CRCL DRUG DOSING (CG) 36.52 mL/min; PROTEIN TOTAL,TP 6.4 g/dL (6.4-8.2)
[2024-07-30] MEDS: Take Home: predniSONE 20 MG, 2 Tab Pack PO ONE (12:03)
[2024-07-30] MEDS: Take Home: Azithromycin 250 MG, 2 Tab Pack PO ONE (12:03)
[2024-07-30 13:58] VITALS: BP 122/58; PULSE 98
== END 2024-07-30 12:15 | disposition home or self-care (01) ==
LOC: VM.ED 10:30
DX: J44.1 Chronic obstructive pulmonary disease with (acute) exacerbation (principal); Z79.899 Other long term (current) drug therapy
CPT/HCPCS: 71046; 80053; 85025; 87428-QW; 93005; 93010; 94640; 96374; 99284; 99285-25; A9270-GY; J2919; J7512; J7620-GY